=== PATIENT | male | born 1970 | race Caucasian/White ===

== ENCOUNTER 2017-01-24 08:35 | Outpatient (RCR) | payer MEDICARE, MEDICAID ==
[~2017-01-24 08:35] MED LIST: /NEPHROTA PO; ACET650S3 PO; ALBU17IN INH; ALLO300T2 PO; AMBI10TA PO; AMBIEN PO; AMLO10TA2 PO; AMLO5TAB2 PO; AUGM875T27 PO; BACT400T PO; BACT800T5 PO; CALC667C2 PO; CALC668T PO; CARD8TAB2 PO; CARV12.5 PO; CEFD300CAP PO; CINA30TA PO; DEPA500T2 PO; DIVA125C5 PO; EUCECRE3 EXT; FENO54TA2 PO; FOSR1000 PO; FOSRENAL PO; GLIP2.5T6 PO; GLIP5TAB2 PO; LASI40TA PO; LINE60TAB PO; LISI40TAB PO; LISI5TAB PO; LOPR1TAB7 PO; LOSA100T36 PO; LOVA1CAP16 PO; LOVA1CAP17 PO; METO100T PO; MINO2.5T PO; MINO25TA PO; NEPHTAB PO; OMEP40CA2 PO; PHOS667C5 PO; PRAV80TA PO; PRAV80TA2 PO; SENS90TA PO; TYLE325T5 PO; ULOR80TA PO; VELP5CHW PO; VITA200028 PO; ZYLO300T4 PO; [UNRECOGNIZED DRUG - CODE] TOP; nephrovite PO
== END 2017-02-17 ==
LOC: M PT 08:35
PROVIDERS: ATTEND Surgery
DX: Z51.89 Encounter for other specified aftercare (principal); I89.0 Lymphedema, not elsewhere classified
CPT/HCPCS: 97161; G8978; G8979

== ENCOUNTER 2017-02-19 12:59 | Outpatient (RCR) | payer MEDICARE, MEDICAID | END 2017-02-26 13:44 | disposition home or self-care (01) | LOC: M PT 12:59 | PROVIDERS: ATTEND Surgery | DX: Z51.89 Encounter for other specified aftercare (principal); I89.0 Lymphedema, not elsewhere classified | CPT/HCPCS: 97162; G8978; G8979; G8980 ==

== ENCOUNTER 2017-09-17 12:55 | Outpatient (RCR) | payer MEDICARE, MEDICAID ==
[~2017-09-17 12:55] MED LIST changes: -AUGM875T27 PO; +AUGM875T28 PO; -MINO25TA PO
== END 2017-09-19 ==
LOC: M PT 12:55
PROVIDERS: ATTEND Surgery
DX: Z51.89 Encounter for other specified aftercare (principal); I89.0 Lymphedema, not elsewhere classified
CPT/HCPCS: 97163; G8978; G8979

== ENCOUNTER 2017-10-03 13:35 | Outpatient (RCR) | payer MEDICARE, MEDICAID | END 2017-10-20 | LOC: M PT 13:35 | DX: Z51.89 Encounter for other specified aftercare (principal); I89.0 Lymphedema, not elsewhere classified | CPT/HCPCS: 97140 ==

== ENCOUNTER 2017-10-29 11:48 | Outpatient (RCR) | payer MEDICARE, MEDICAID | END 2017-11-20 | LOC: M PT 11-07 11:52 | DX: Z51.89 Encounter for other specified aftercare (principal); I89.0 Lymphedema, not elsewhere classified | CPT/HCPCS: 97140 ==

== ENCOUNTER 2018-11-17 06:30 | Emergency (ER) | payer MEDICARE, MEDICAID ==
[~2018-11-17] VITALS: Ht 177.8 cm; Wt 136.4 kg
[~2018-11-17 06:30] MED LIST changes: -AMLO10TA2 PO; +AMLO10TA5 PO; +AMLO5TAB6 PO; +LASI40TA9 PO; -LOSA100T36 PO; +LOSA100T50 PO; -ZYLO300T4 PO; +ZYLO300T6 PO
[2018-11-17] MEDS ORDERED: TORS100T PO (06:55)
[2018-11-17] MEDS ORDERED: VELT1POW PO (06:55)
[2018-11-17] MEDS ORDERED: TOPR100T13 PO (06:55)
[2018-11-17] MEDS ORDERED: LIDOCAINE 1% MDV 20ML VIAL SC ONE (07:30)
[2018-11-17] MEDS ORDERED: ADACEL/BOOSTRIX VACCINE (DIPHTH/PERTUSS/ACELL/TETANUS)0.5ML SYR (90715) IM ONE (08:00)
[2018-11-17 08:16] VITALS: BP 184/102
== END 2018-11-17 08:32 | disposition home or self-care (01) ==
LOC: EDBD 06:30 → M ED 06:30
DX: S81.812A Laceration without foreign body, left lower leg, initial encounter (principal); W18.40XA Slipping, tripping and stumbling without falling, unspecified, initial encounter; Y92.89 Other specified places as the place of occurrence of the external cause; Y93.89 Activity, other specified; Y99.9 Unspecified external cause status; N18.6 End stage renal disease; Z79.899 Other long term (current) drug therapy; Z88.1 Allergy status to other antibiotic agents

== ENCOUNTER → 2019-03-05 | Outpatient (CLI) | payer MEDICARE, MEDICAID ==
[~2019-03-05] MED LIST changes: -/NEPHROTA PO; +BUPIVACAINE HCL 0.5% 10 ML VIAL As Ordered ONE; +CEFD300C41 PO; -CEFD300CAP PO; -CINA30TA PO; +CINA30TA4 PO; +ISOVUE-300 61% 100ML VIAL (Q9967) As Ordered ONE; +LIDOCAINE 2% MDV 20 ML VIAL As Ordered ONE; +LINE1TAB PO; -LINE60TAB PO; +LISI40TA52 PO; -LISI40TAB PO; +MIDAZOLAM INJ 2 MG/2 ML VIAL (J2250) As Ordered ONE; +NEPH1TAB11 PO; +NEPH1TAB8 PO; -NEPHTAB PO; +TOPR100T PO; +TORS100T PO; +VELT1POW PO; +fentaNYL 100 MCG/2 ML INJECTION (J3010) As Ordered ONE
--- NOTE | 2019-03-27 10:10 | REPIR ---
DATE OF PROCEDURE: 03/05/2019 ATTENDING SURGEON: Dr. Jennifer Padilla ASSISTANTS: Zulema Vicente and Maryellen Murdock PREOPERATIVE DIAGNOSES: End-stage renal disease. Dysfunctional left radiocephalic arteriovenous fistula. POSTOPERATIVE DIAGNOSES: End-stage renal disease. Dysfunctional left radiocephalic arteriovenous fistula. PROCEDURE: Left radiocephalic arteriovenous fistulogram. Retrograde left radial artery angiogram. Two cannulations of the arteriovenous fistula. Selective left radial artery catheter placement with angiogram runoff. Left cephalic vein angioplasty with 10 x 8 balloon. Left cephalic vein and radial artery angioplasty with a 5 x 100 balloon. Left cephalic vein angioplasty with 8 x 40 balloon. INDICATION: The patient is a 48-year-old male with an end stage renal disease and a dysfunctional left radiocephalic arteriovenous fistula. The patient will undergo a fistulogram. ANESTHESIA: Local with sedation with 2 mg of Versed, 100 mcg of fentanyl and 6 mL of local. FLUORO TIME: 2.7 minutes. CONTRAST: 5 mL. SEDATION TIME: Was 9:22 a.m. to 9:57 a.m. for a total 35 minutes. COMPLICATIONS: None. DRAINS: None. SPECIMENS: None. IMPLANTS: None. PROCEDURE: The patient was taken to the angiography suite, placed supine on the angiography room table and then prepped and draped in a standard surgical fashion. The fistula was cannulated and a fistulogram performed showing stenosis in the cephalic vein in the midforearm. This was angioplastied with 10 x 8 balloon. A retrograde radial artery angiogram was performed showing stenosis at the arteriovenous anastomosis and this was angioplasty with a 5 x 100 balloon at the anastomosis and a 8 x 40 balloon in the translocated portion of the cephalic vein at the wrist. Completion angiography showed resolution of the stenosis with excellent flow through the fistula. The sheaths were removed and #2-0 Prolene sutures were placed at the puncture site for hemostasis. Dressings were then applied. The patient tolerated procedure well. All instrument, sponge and needle counts were correct at the end of the case. There were no complications. Dr. Padilla was present for and directed the entire case. The patient was transferred to the holding area and subsequently discharged in stable condition.
== END | disposition home or self-care (01) ==
LOC: M IRPRO 08:39
PROVIDERS: ATTEND Surgery Vascular Surgery
DX: T82.858A Stenosis of other vascular prosthetic devices, implants and grafts, initial encounter (principal); N18.6 End stage renal disease; Z99.2 Dependence on renal dialysis
CPT/HCPCS: 36902; C1725; C1769; C1887; C1894; J2250; J3010; Q9967

== ENCOUNTER → 2019-08-27 | Outpatient (CLI) | payer MEDICARE, MEDICAID ==
[~2019-08-27] MED LIST changes: -BUPIVACAINE HCL 0.5% 10 ML VIAL As Ordered ONE; -ISOVUE-300 61% 100ML VIAL (Q9967) As Ordered ONE; -LIDOCAINE 2% MDV 20 ML VIAL As Ordered ONE; -MIDAZOLAM INJ 2 MG/2 ML VIAL (J2250) As Ordered ONE; +OMEP40CA97 PO; -fentaNYL 100 MCG/2 ML INJECTION (J3010) As Ordered ONE
--- NOTE | 2019-08-27 13:41 | REP ---
Bilateral lower extremity arterial Doppler ultrasound: History: Nonhealing ulcer. Findings: Ankle brachial indices could not be accomplished due to noncompressible vessels and the left arm arteriovenous fistula. Mild to moderate diffuse plaquing is visible in the lower extremity arteries. Exam is technically limited substantially due to patient body habitus and lower extremity edema. The proximal segments of the anterior and posterior tibial arteries could not be seen on either side. Predominately monophasic waveforms are noted in the arteries throughout the lower extremities. There is evidence of a mild distal SFA stenosis on the left. Right lower extremity arterial Doppler velocity chart: Right CF A 118 cm/S Profunda 78 Proximal SFA 126 Mid SFA 131 Distal SFA 146 Popliteal 122 Proximal AT A not seen Tibioperoneal trunk 88 Proximal AVAYA ENGINEER not seen Distal AVAYA ENGINEER 46 Distal AT A 85 Left lower extremity arterial Doppler velocity chart: Left CF A 93 cm/S Profunda 68 Proximal SFA 131 Mid SFA 106 Distal SFA 194 Popliteal 89 Proximal AT A not seen Tibioperoneal trunk 96 Proximal AVAYA ENGINEER not seen Distal AVAYA ENGINEER 115 Distal AT A 68 Electronically Signed by Barrera Mason MD 08/27/2019 01:32 P
== END ==
LOC: M RAD 09:31
PROVIDERS: ATTEND Physician Assistant
DX: S81.802A Unspecified open wound, left lower leg, initial encounter (principal); Q82.0 Hereditary lymphedema; L97.822 Non-pressure chronic ulcer of other part of left lower leg with fat layer exposed; I87.313 Chronic venous hypertension (idiopathic) with ulcer of bilateral lower extremity; X58.XXXA Exposure to other specified factors, initial encounter; Y92.9 Unspecified place or not applicable

== ENCOUNTER → 2019-09-01 | Outpatient (CLI) | payer MEDICARE, MEDICAID ==
[~2019-09-01] MED LIST changes: +ISOVUE-300 61% 50ML VIAL (Q9967) As Ordered ONE; +LIDOCAINE 1% MDV 20ML VIAL As Ordered ONE; +MIDAZOLAM INJ 2 MG/2 ML VIAL (J2250) As Ordered ONE; +fentaNYL 100 MCG/2 ML INJECTION (J3010) As Ordered ONE
--- NOTE | 2019-09-01 12:52 | ROOPDOC ---
[facility] Report Of Operation Report of Operation DATE OF PROCEDURE: 09/01/19 PREPROCEDURE DIAGNOSES: ESRD with poor flows on dialysis with left Trish fistula. POSTPROCEDURE DIAGNOSES: Same. PROCEDURE: 1. Ultrasound-guided access left Trish fistula 2. Left upper extremity fistulogram and central venogram SURGEON: Elmira Murillo MD ANESTHESIA: Local 3 mL lidocaine. INDICATION FOR PROCEDURE: Mr. Paulson is a 48-year-old gentleman with end-stage renal disease currently dialyzing with left upper extremity Trish fistula. He has had some issues with cannulation as well as poor flows. We discussed the risks benefits and alternatives to a fistulogram potential intervention and he was agreeable to proceed. Informed consent was obtained. INTERPRETATION: 1. On initial ultrasound exam of the left forearm, the AV anastomosis is widely patent and there are large aneurysmal segments throughout the forearm bridged by dilated sections of cephalic vein. There are no areas of focal stenosis noted on ultrasound exam. The cephalic vein is very dilated in the upper arm, I estimate approximately 9-10 mm diameter on ultrasound. 2. Fistulogram shows widely patent inflow at the fistula but the flow does pool and slow in the aneurysmal segments, and then there is widely patent inflow into the cephalic and basilic veins in the upper arm, and widely patent inflow through to the central system. No areas of stenosis are noted. REPORT OF OPERATION: The patient was brought into graphic suite in stable condition. He has trouble breathing when he lays flat, so we placed a wedge and 5 pillows behind his back to keep him in a semi-seated position for the procedure for his comfort. This was acceptable to the patient and he was able to breathe easy during the procedure. His left upper extremity was prepped and draped in a sterile fashion. A timeout was performed. An ultrasound was used to examine the forearm prior to cannulation. Please see above for interpretation. We then accessed the cephalic vein near the AV anastomosis and a wire was passed to this access and a micro-sheath was placed. Through this micro-sheath, we advanced a Glidewire into the central system and removed the micro-sheath and a 6 [place] sheath was placed and flushed with saline. We then performed a fistulogram and central venogram and no areas of stenosis were noted, thus no intervention was performed. A suture was placed at the access site in the sheath was removed and pressure was held for 5 minutes for good hemostasis and sterile dressings were applied. The patient tolerated the procedure well. He did not require any sedation. He was taken to recovery in stable condition. ESTIMATED BLOOD LOSS: Approximately 2 mL. COMPLICATIONS: None. PLAN: Our plan is to discuss with the dialysis unit to options: the first would be continuing to use the AV fistula as is if the flows are adequate, the second would be proximalizing the fistula to the left brachial artery making a brachiocephalic AV fistula. The vein is already dilated in the left upper arm, and there is widely patent and outflow through to the central system. Also of note the left basilic vein is extremely large and dilated in the left upper extremity as well and would be suitable for her fistula down the road. If we were to proximal ice the fistula, do not think it would take long for it to be ready for use but we would have to place a PermCath in the interim. The patient is agreeable to either plan and I attempted to call the dialysis unit but was not able to reach anyone today, we will continue to try. It is okay to use the fistula for dialysis at this time. ELMIRA MURILLO MD Sep 01, 2019 12:52
[2019-09-01 12:55] VITALS: BP 142/88
== END ==
LOC: M IRPRO 10:07
PROVIDERS: ATTEND Surgery Vascular Surgery
DX: N18.6 End stage renal disease (principal)
CPT/HCPCS: 36901; C1769; C1894; J2250; J3010; Q9967

== ENCOUNTER → 2019-09-29 | Outpatient (POV) | payer MEDICARE, MEDICAID ==
[~2019-09-29] VITALS: Ht 177.8 cm; Wt 140.9 kg
[~2019-09-29] MED LIST changes: -ISOVUE-300 61% 50ML VIAL (Q9967) As Ordered ONE; -LIDOCAINE 1% MDV 20ML VIAL As Ordered ONE; -MIDAZOLAM INJ 2 MG/2 ML VIAL (J2250) As Ordered ONE; -fentaNYL 100 MCG/2 ML INJECTION (J3010) As Ordered ONE
[2019-09-29 13:00] VITALS: BP 110/62
--- NOTE | 2019-09-30 09:30 | IRCOV ---
[facility] IR Consult Office Visit IR Consult Office Visit DATE: Sep 29, 2019 REASON FOR CONSULTATION/CHIEF COMPLAINT: Lower extremity nonhealing wounds. HISTORY OF PRESENT ILLNESS: 48-year-old male nonsmoker with chronic bilateral lymphedema which started in 2011 associated with kidney failure. Describes pain in bilateral legs worse with walking, onset at less than 1 yard. Pain goes away with rest. Describes pain in the legs at night and has to get up and hang his legs out of the bed to get relief. Nonhealing ulcers on bilateral legs currently under care of wound care. Denies chest pain, PND, prior CT or stroke. No prior surgery to the legs or groin. ALLERGIES: Please see below. HOME MEDICATIONS: Please see below. PAST MEDICAL HISTORY: Hypertension Diabetes Chronic kidney disease on dialysis Elevated cholesterol Iron deficiency anemia COPD Obesity Gout PAST SURGICAL HISTORY: Dialysis fistula FAMILY HISTORY: Noncontributory. SOCIAL HISTORY: Nonsmoker no alcohol or drugs. REVIEW OF SYSTEMS: Otherwise negative PHYSICAL EXAMINATION: VITAL SIGNS: Please see below. GENERAL APPEARANCE: Appears well. Short of breath mobilizing from chair to table. HEENT: No scleral icterus. RESPIRATORY: Symmetric breath sounds. CARDIOVASCULAR: Tachycardic. ABDOMEN: Protuberant. EXTREMITIES: Right lower extremity. Lymphedema. Cobblestoning. Compression dressing on. Superficial nonhealing ulcer upper right anterior calderón Left lower extremity: Lymphedema. Cobblestoning. Compression dressing. NEUROLOGICAL: Alert and oriented. PSYCHIATRIC: Appropriate to circumstance. LABORATORY DATA: None Imaging: I personally reviewed the ultrasound performed of the lower extremities in August 2019. Technically challenging exam due to patient's body habitus and lymphedema. There are monophasic waveforms in the arteries of the legs bilaterally. ABIs cannot be obtained due to lymphedema and noncompressibility. ASSESSMENT/PLAN: 48-year-old male with intermittent claudication and rest pain with limited ultrasound findings presents with nonhealing lower extremity wounds. I agree diagnostic angiogram and/or intervention at the same time is indicated. Left leg first followed by right leg. I discussed the risks and benefits of the procedure with the patient and patient would like to proceed. We will schedule the patient for this procedure. I spent 30 minutes in consultation with the patient. Thank you for this referral. CC Nneka Thomas Allergies Coded Allergies: MS - Vancomycin (Unverified Allergy, Mild, ITCHING, 1/6/16) Home Medications Scheduled Amlodipine Besylate (Amlodipine Besylate), 5 MG PO DAILY, (Reported) Calcium Acetate (Phoslo), 4 TAB PO TID, (Reported) Doxazosin Mesylate (Cardura), 8 MG PO QHS, (Reported) Ergocalciferol (Vitamin D2) (Vitamin D2), 50,000 UNIT PO QMONTH, (Reported) Eucerin (Eucerin), 1 DOSE EXT BID Febuxostat (Uloric), 80 MG PO DAILY, (Reported) Linezolid (Linezolid), 600 MG PO BID Lisinopril (Lisinopril), 40 MG PO BID, (Reported) [place]-3 Acid Ethyl Esters (Lovaza), 2,000 MG PO BID, (Reported) Omeprazole (Omeprazole), 40 MG PO DAILY, (Reported) Patiromer Calcium Sorbitex (Veltassa), 8.4 GM PO non dialysis days, (Reported) Pravastatin Sodium (Pravachol), 80 MG PO DAILY, (Reported) Sucroferric Oxyhydroxide (Velphoro), 1,000 MG PO TID, (Reported) Vit B Comp No.3/Folic/C/Biotin (Nephro-[place] Rx Tablet), 1 TAB PO DAILY, (Reported) Scheduled PRN Acetaminophen (Tylenol), 650 MG PO Q6H PRN for PAIN, (Reported) Albuterol Sulfate (Ventolin Hfa), 2 PUFF INH Q4H PRN for SHORTNESS OF BREATH, (Reported) VS, I&O, 24H, Fishbone Vital Signs/I&O Vital Signs Date Time Temp Pulse Resp B/P (MAP) Pulse Ox O2 Delivery O2 Flow Rate FiO2 09/29/19 13:00 97.7 100 18 110/62 (78) 100 Room Air JORGE GARCIA MD Sep 30, 2019 09:30
== END ==
LOC: M IRPOV 12:56
PROVIDERS: ATTEND Radiology Diagnostic Radiology
DX: I89.0 Lymphedema, not elsewhere classified (principal); I10 Essential (primary) hypertension; N18.6 End stage renal disease; L97.929 Non-pressure chronic ulcer of unspecified part of left lower leg with unspecified severity; L97.919 Non-pressure chronic ulcer of unspecified part of right lower leg with unspecified severity; D50.9 Iron deficiency anemia, unspecified; J44.9 Chronic obstructive pulmonary disease, unspecified; E66.9 Obesity, unspecified; M10.9 Gout, unspecified; M79.604 Pain in right leg; M79.605 Pain in left leg

== ENCOUNTER → 2019-10-29 | Outpatient (CLI) | payer MEDICARE, MEDICAID ==
[~2019-10-29] MED LIST changes: +HEPARIN 1,000 UNITS/ML 10ML VIAL (FOR RADIOLOGY& DIALYSIS ONLY) As Ordered ONE; +ISOVUE-300 61% 50ML VIAL (Q9967) As Ordered ONE; +LIDOCAINE 1% MDV 20ML VIAL As Ordered ONE; +MIDAZOLAM INJ 2 MG/2 ML VIAL (J2250) As Ordered ONE; +diphenhydrAMINE INJ 50MG/ML VIAL (J1200) As Ordered ONE; +fentaNYL 100 MCG/2 ML INJECTION (J3010) As Ordered ONE
--- NOTE | 2019-10-29 13:47 | IRHP ---
[facility] IR Pre-Procedure H & P General Date of Service: Oct 29, 2019 Procedure: Same Day Surgery Interval History and Physical I have seen the patient and reviewed last H & P performed within 30 days. There is no significant interval change. History of Present Illness Chief Complaint The patient is a 48-year-old male admitted with a reason for visit of Pad, Rest Pain. PRE-PROCEDURE DIAGNOSIS: PAD HEART: normal rate. LUNGS: normal breathing at rest. ASA Classification ASA Classification: III-Severe systemic dis. Mallampati Score: II NPO: Yes Problems with prior sedation: No Obstructive Sleep Apnea: Yes Plan moderate sedation Allergies Coded Allergies: MS - Vancomycin (Unverified Allergy, Mild, ITCHING, 10/26/15) Home Medications Scheduled Amlodipine Besylate (Amlodipine Besylate), 5 MG PO DAILY, (Reported) Calcium Acetate (Phoslo), 4 TAB PO TID, (Reported) Doxazosin Mesylate (Cardura), 8 MG PO QHS, (Reported) Ergocalciferol (Vitamin D2) (Vitamin D2), 50,000 UNIT PO QMONTH, (Reported) Eucerin (Eucerin), 1 DOSE EXT BID Febuxostat (Uloric), 80 MG PO DAILY, (Reported) [place]-3 Acid Ethyl Esters (Lovaza), 2,000 MG PO BID, (Reported) Omeprazole (Omeprazole), 40 MG PO DAILY, (Reported) Patiromer Calcium Sorbitex (Veltassa), 8.4 GM PO non dialysis days, (Reported) Pravastatin Sodium (Pravachol), 80 MG PO DAILY, (Reported) Sucroferric Oxyhydroxide (Velphoro), 1,000 MG PO TID, (Reported) Vit B Comp No.3/Folic/C/Biotin (Nephro-Kw[place]ena Rx Tablet), 1 TAB PO DAILY, (Rep orted) Scheduled PRN Acetaminophen (Tylenol), 650 MG PO Q6H PRN for PAIN, (Reported) Albuterol Sulfate (Ventolin Hfa), 2 PUFF INH Q4H PRN for SHORTNESS OF BREATH, (Reported) Discontinued Medications Linezolid (Linezolid), 600 MG PO BID Discontinued Reason: Pt states not taking Lisinopril (Lisinopril), 40 MG PO BID, (Reported) Discontinued Reason: Pt states not taking VS, I&O, 24H, Fishbone Vital Signs/I&O Vital Signs Date Time Temp Pulse Resp B/P (MAP) Pulse Ox O2 Delivery O2 Flow Rate FiO2 10/29/19 13:35 87 16 93 Nasal Cannula 4 10/29/19 12:23 97.3 JORGE GARCIA MD Oct 29, 2019 13:47
--- NOTE | 2019-10-29 15:08 | POST-OPPD ---
Postoperative Procedure Note Date Of Procedure: Oct 29, 2019 Time Of Procedure: 15:06 PREOPERATIVE DIAGNOSIS: non healing ulcer POSTOPERATIVE DIAGNOSIS: same FINDINGS: patent left iliac, PIE CHEF, SFA, profunda, popliteal, and three vessel run off to the foot. PROCEDURE: left leg angiogram. SURGEON: mike ANESTHESIA: mod sed ESTIMATED BLOOD LOSS: < 5 ml COMPLICATIONS: none POSTOPERATIVE CONDITION: stable JORGE GARCIA MD Oct 29, 2019 15:08
[2019-10-29 17:39] VITALS: BP 164/94
--- NOTE | 2019-10-30 17:01 | REP ---
IR Left leg angiogram. IR below-knee runoff. IR moderate sedation. Clinical Information: Left leg pain, abnormal ultrasound and nonhealing wounds. Physician: Dr Andrade.Procedure: The patient was advised of the benefits, risks, and alternatives of the procedure and informed consent was obtained.A time out was performed with verification of the patient's name, MRN, site of procedure, and type of procedure to be performed. The patient was positioned in the supine position on the angiographic table. The site was prepped and draped in the usual sterile fashion.Moderate sedation was performed by the physician including the presence of an independent trained observer who assisted in monitoring the patient's level of consciousness and physiological status. Following the administration of Fentanyl and Versed, the physician spent 60 minutes of continuous [id number] time with the patient. A thermodynamic physicist radiograph reveals no gross abnormality. The right femoral artery was accessed with a micropuncture kit. A [employer] wire was advanced into the aorta. The micropuncture sheath was exchanged over the wire for a a 6-[place]izen [place] vascular sheath. A 4-[place] flush catheter was advanced over the wire and used to catheterize the abdominal aorta. A pelvic arteriogram was performed. This demonstrates patent left common iliac, external iliac, internal iliac and common femoral arteries. A Glidewire was advanced through the flush catheter and under fluoroscopy guidance was used to gain up and over access into the left common iliac artery. The flush catheter was exchanged over the wire for a glide cath. The glide cath in conjunction with a Glidewire was used to catheterize the left common femoral artery. A left leg angiogram was performed from this location. This demonstrates patent left superficial femoral and profunda femoris. An angiogram further down the leg was performed and this demonstrates patent mid and distal superficial femoral artery and patent popliteal artery. A below-knee runoff arteriogram was performed and this demonstrates three vessel runoff to the left foot. The catheter was removed. A 6-[place]izen [place] Mynx device was used to close the groin arteriotomy and the sheath was removed. Hemostasis achieved. A sterile dressing was applied to the site. Patient tolerated the procedure well and was transferred to PRU in stable condition. Complications: None. Estimated blood loss: Less than 5 ml. Impression: 1. Left leg angiogram demonstrates patent inflow and outflow. No significant stenosis. 2. Below-knee runoff demonstrates three vessel runoff to the left foot. No further arterial intervention warranted at this time. Thank you for this referral. Electronically Signed by Beth Andrade MD 10/30/2019 05:00 P
== END ==
LOC: M IRPRO 11:22
PROVIDERS: ATTEND Radiology Diagnostic Radiology
DX: M79.605 Pain in left leg (principal); R93.6 Abnormal findings on diagnostic imaging of limbs; L97.909 Non-pressure chronic ulcer of unspecified part of unspecified lower leg with unspecified severity
CPT/HCPCS: 36246; 99152; 99153; C1760; C1769; C1887; C1894; G0269; J1200; J2250; J3010; Q9967

== ENCOUNTER 2019-11-25 09:54 | Inpatient (IN) | payer MEDICARE, MEDICAID ==
[~2019-11-25] VITALS: Ht 177.8 cm; Wt 130.5 kg
[~2019-11-25 09:54] MED LIST changes: -HEPARIN 1,000 UNITS/ML 10ML VIAL (FOR RADIOLOGY& DIALYSIS ONLY) As Ordered ONE; -ISOVUE-300 61% 50ML VIAL (Q9967) As Ordered ONE; -LIDOCAINE 1% MDV 20ML VIAL As Ordered ONE; -MIDAZOLAM INJ 2 MG/2 ML VIAL (J2250) As Ordered ONE; -diphenhydrAMINE INJ 50MG/ML VIAL (J1200) As Ordered ONE; -fentaNYL 100 MCG/2 ML INJECTION (J3010) As Ordered ONE
[2019-11-25] MEDS ORDERED: HYDR-3363 PO (10:12)
[2019-11-25] MEDS ORDERED: LIDO2.5C15 TOP (10:12)
[2019-11-25 11:07] LABS: BASO % 0.7 % (0.0-1.0); EOS # 0.1 10^3/uL (0.0-0.5); EOS % 3.6 % (0.0-3.0); HEMATOCRIT 34.4 % (42.0-52.0); HEMOGLOBIN 10.4 g/dl (13.5-17.5); LYMPH # 0.4 10^3/uL (1.5-5.0); LYMPH % 15.3 % (24.0-44.0); MEAN CORPUSCULAR HGB CONC 30.2 g/dl (32.0-36.5); MEAN CORPUSCULAR VOLUME 105.8 fl (80.0-96.0); MONO # 0.4 10^3/uL (0.0-0.8); MONO % 15.3 % (0.0-5.0); NEUTROPHILS # 1.8 10^3/uL (1.5-8.5); NEUTROPHILS % 64.7 % (36.0-66.0); PLATELET COUNT, AUTOMATED 109 10^3/uL (150-450); RED BLOOD COUNT 3.25 10^6/uL (4.30-6.10); WHITE BLOOD COUNT 2.8 10^3/uL (4.0-10.0)
[2019-11-25 11:28] LABS: ALBUMIN 3.5 GM/DL (3.2-5.2); BILIRUBIN,DIRECT 0.6 MG/DL (0.0-0.2); BILIRUBIN,TOTAL 1.1 MG/DL (0.2-1.0); CALCIUM LEVEL 8.4 MG/DL (8.5-10.1); CREATININE FOR GFR 5.32 MG/DL (0.70-1.30); GLOMERULAR FILTRATION RATE 12.2 (>56); POTASSIUM SERUM 4.4 MEQ/L (3.5-5.1); TOTAL PROTEIN 8.1 GM/DL (6.4-8.2)
[2019-11-25] MEDS: GASTROGRAFIN SOLUTION 30ML PO SCH ×2 (14:25→14:47)
[2019-11-25] MEDS ORDERED: LEVA1TAB2 PO (15:17)
[2019-11-25] MEDS ORDERED: EUCECRE8 TOP (15:17)
[2019-11-25] MEDS ORDERED: TORS100T PO (15:17)
[2019-11-25] MEDS ORDERED: LINE1TAB6 PO (15:17)
[2019-11-25] MEDS ORDERED: AMBI10TA PO (15:17)
[2019-11-25] MEDS ORDERED: METO1TAB33 PO (15:17)
[2019-11-25] MEDS ORDERED: PRAV80TA2 PO (15:17)
[2019-11-25] MEDS ORDERED: CARV6.25 PO (15:17)
[2019-11-25] MEDS ORDERED: LISI40TA PO (15:17)
[2019-11-25] MEDS ORDERED: VENTAER INH (15:17)
[2019-11-25] MEDS ORDERED: CALC667T2 PO (15:17)
[2019-11-25] MEDS ORDERED: ALLO10TA PO (15:17)
[2019-11-25] MEDS ORDERED: PATIENT COMMENT (15:19)
[2019-11-25] MEDS ORDERED: DEXTROSE 50% 50 ML SYRINGE IV STA (16:02)
--- NOTE | 2019-11-25 17:12 | REP ---
CT abdomen and pelvis with oral but without IV contrast: History: Diverticular bleed. Renal failure on dialysis. No comparison CT studies. CT findings: Digital preliminary culinary director radiograph shows no evidence of bowel obstruction. There is evidence of splenomegaly and hepatomegaly and moderate to large amount of ascites. Axial CT images show an area of spiral atelectasis in the left lower lobe of the lung. There is pleural thickening and a small quantity of fluid at the left base. These findings are new when compared with comparison chest CT study November 21, 2012. There is also some atelectasis or fibrosis in the lingula. Granulomatous calcifications are noted in the bases bilaterally. Axial CT images confirm the presence of a moderate to large amount of diffuse abdominal ascites. The liver is at the upper range of normal in size with a craniocaudal span in the midclavicular line of 16.5 cm. The spleen is moderately enlarged measuring up to 19.6 cm in craniocaudal oblique dimension. No focal hepatic or splenic lesion is seen. Gallbladder is unremarkable. No mass or cyst is seen in the pancreas. Vascular calcification is noted. The [place] kidneys are markedly atrophic. There are scattered retroperitoneal and bilateral iliac lymph nodes and inguinal lymph nodes which are felt to be normal in size. There is some edema in the omental fat but no mesenteric caking or peritoneal mass lesion is appreciated. Small and large bowel loops are unremarkable in the abdomen and pelvis. No bony abnormality is seen. The appendix is not confidently identified. Impression: Moderate to large amount of diffuse abdominal ascites. Hepatosplenomegaly. Chronic atelectasis left lower lobe and lingula with pleural thickening and minimal pleural fluid left base. [place] kidneys are markedly atrophic. Electronically Signed by Barrera Mason MD 11/25/2019 07:31 P
[2019-11-25] MEDS ORDERED: zolPIDEM TARTRATE 5 MG TAB PO ONE (17:30)
[2019-11-25] MEDS ORDERED: EMLA CREAM 5GM (LIDOCAINE/PRILOCAINE) TOP PRN (17:30)
[2019-11-25] MEDS ORDERED: hydrOXYzine 25 MG TAB PO PRN (17:30)
[2019-11-25] MEDS ORDERED: GLUCOSE 4 GM CHEW TABLET PO PRN (18:15)
[2019-11-25] MEDS ORDERED: GLUCAGON FOR INJ 1 MG VIAL (J1610) SC PRN (18:15)
[2019-11-25] MEDS ORDERED: DEXTROSE 50% 50 ML SYRINGE IV PRN (18:15)
--- NOTE | 2019-11-25 18:45 | HPEPDOC ---
General Date of Admission 11/25/2019 Date of Service: Nov 25, 2019 Attending Physician: CARMELLA GAGE MD Chief Complaint The patient is a 48-year-old male admitted with a reason for visit of Abd Pain. Source: Patient Exam Limitations: No limitations Timing/Duration: 24 hours (hematochezia), Day(s) (weight gain) Severity: Severe Associated Symptoms: Other (weight gain, bloody bowel movements, RUQ abdominal pain) History of Present Illness 48 yo man with ESRD on HD (MWF), diet controlled DM, AOCI and Fe deficiency anemia, GERD, HTN, HFrEF and pulmonary hypertension who presented from HD per recommendation of his accreditation coordinator for admission for acute hematochezia over the last 24h hours with associated RUQ pain as well as massive weight gain with fra nk volume overload over a few days from his dry weight. He reports that at 3am the night before he had blood diarrhea of which he had 4 more episodes without painful defecation, fever, chills, weight loss. He endorses RUQ pain that wakes him from sleep and is not associated with PO and is episodic, with otherwise no N/V. In the ED, he was hemodynamically stable, afebrile and saturating well on room air. He initially refused to be admitted despite acknowledging the ongoing issues but had wanted to have it all solved in the ED so he can go home. He agreed to have his work up that showed his baseline leukopenia at 2.8, baseline anemia at 10.4/34.4, platelets 109, Na 139, K 4.4, Cr 5.32, lipase 229, LFTs notable for elevated alk phos of [address] A/P showed moderate to large ascites with hepatospenomegaly out evidence of intestinal obstruction of enlarged lymph nodes. He was admitted to medicine for LGIB monotoring and volume optimization with nephrology onboard. Of note, patient was on renally dosed levaquin/linezolid and will await to confirm the targeted infection. Home Medications Scheduled Allopurinol (Allopurinol) 100 Mg Tablet, 100 MG PO DAILY, (Reported) Amlodipine Besylate (Amlodipine Besylate) 5 Mg Tab, 5 MG PO DAILY, (Reported) Calcium Acetate (Calcium Acetate) 667 Mg Tablet, 2,001 MG PO WM, (Reported) Carvedilol (Carvedilol) 6.25 Mg Tablet, 6.25 MG PO BID, (Reported) Doxazosin Mesylate (Cardura) 8 Mg Tab, 8 MG PO QHS, (Reported) Ergocalciferol (Vitamin D2) (Vitamin D2) 2,000 Unit Tab, 50,000 UNIT PO QWEEK, (Reported) Febuxostat (Uloric) 80 Mg Tab, 80 MG PO DAILY, (Reported) Levofloxacin (Levaquin) 500 Mg Tablet, 500 MG PO Q2D, (Reported) Lidocaine/Prilocaine (Lidocaine-Prilocaine Cream) 2.5%/2.5% Cream..g., 1 DOSE TOP ASDIRECTED, (Reported) APPLY TO PORT 1 TO 2 HOURS PRIOR TO DIALYSIS Linezolid (Linezolid) 600 Mg Tablet, 600 MG PO BID, (Reported) Lisinopril (Lisinopril) 40 Mg Tablet, 40 MG PO BID, (Reported) Metoprolol Succinate (Metoprolol Succinate) 100 Mg Tab.er.24h, 100 MG PO BID, (Reported) [place]-3 Acid Ethyl Esters (Lovaza) 1 Cap Cap, 2,000 MG PO BID, (Reported) Omeprazole (Omeprazole) 40 Mg Cap, 40 MG PO DAILY, (Reported) Patiromer Calcium Sorbitex (Veltassa) 8.4 Gm Pow, 8.4 GM PO 3XW, (Reported) NON-DIALYSIS DAY. , , SAT Pravastatin Sodium (Pravastatin Sodium) 80 Mg Tablet, 80 MG PO DAILY, (Reported) Sucroferric Oxyhydroxide (Velphoro) 500 Mg Chw, 1,500 MG PO WM, (Reported) Torsemide (Torsemide) 100 Mg Tablet, 100 MG PO DAILY, (Reported) Vit B Comp No.3/Folic/C/Biotin (Nephro-[place] Rx Tablet) 1 Tab Tab, 1 TAB PO DAILY, (Reported) Scheduled PRN Albuterol Sulfate (Ventolin Hfa) 18 Gm Hfa.aer.ad, 2 PUFF INH Q6H PRN for SHORTNESS OF BREATH, (Reported) Hydroxyzine HCl (Hydroxyzine HCl) 25 Mg Tablet, 25 MG PO BID PRN for ITCHING, (Reported) Lanolin Alcohol/Mo/W.pet/[place] (Eucerin Creme) 454 Gm Cream..g., 1 DOSE TOP BID PRN for DRY SKIN, (Reported) Zolpidem Tartrate (Ambien) 10 Mg Tablet, 10 MG PO QHS PRN for SLEEP, (Reported) Miscellaneous Medications [Patient Comment] , (Reported) MEDICATION LIST OBTAINED FROM DIALYSIS CENTER. NO MEDICATIONS FILLED RECENTLY AT PATIENT'S PHARMACY. Allergies Coded Allergies: vancomycin (Verified Adverse Reaction, Mild, ITCHING, 11/25/19) Past Medical History Medical History ESRD on HD (MWF), diet controlled DM, AOCI and Fe deficiency anemia, GERD, HTN, HFrEF and pulmonary hypertension, Gout, bilateral hydrocele, hyperlipidemia, BPH, bipolar disorder, LE lymphedema and chronic LE non-healing ulcers Surgical History LUE fistula graft Family History Significant Family History: No pertinent family hx Social History * Smoker: Denies Alcohol: Denies Drugs: denies Recent Travel/Sick Contacts: Denies: Recent travel, Recent sick contacts Psychosocial History: Bipolar A-FIB/CHADSVASC A-FIB History Current/History of A-Fib/PAF?: No Current PO Anticoag Therapy: No Age/Risk Factor Scoring CHADSVASC: CHADSVASC Response (Comments) Value Age Risk Factor Age < 65 years old 0 Gender Risk Factor Male 0 Hx of CHF Yes 1 Hx of HTN Yes 1 Hx of Stroke/TIA/or VTE No 0 Hx of Diabetes Yes 1 Hx of Vascular Disease Yes 1 Total 4 Treatment Treatment ordered: NONE Reason Anticoagulant not given: Not indicated/[id number] Review of Systems Constitutional: Denies: Chills, Fever, Night Sweats Eyes: Denies: Pain, Vision change ENT: Denies: Head Aches, Ear Pain, Dysphagia Skin: Denies: Rash, Lesions, Breakdown Pulmonary: Denies: Dyspnea, Cough Cardiovascular: Denies: Chest Pain, Palpitations, Orthopnea, Paroxysmal Noc. Dyspnea, Lt Headedness Gastrointestinal: Reports: Abdominal Pain, Diarrhea, Hematochezia; Denies: Nausea, Vomiting, Constipation, Melena Genitourinary: Denies: Dysuria, Frequency, Incontinence, Retention Hematologic: Denies: Bruising, Bleeding Excessively Endocrine: Denies: Polydipsia, Polyphagia, Polyuria, Heat Intolerance, Cold Intolerance, Other Endocrine Sx Musculoskeletal: Denies: Neck Pain, Back Pain, Joint Pain, Muscle Pain, Spasms Neurological: Denies: Weakness, Numbness, Change in speech, Confusion Psych: Reports: Mood Normal; Denies: Depression, Memory Issues Physical Examination General Exam: Positive: Other (morbidly obese) Eye Exam: Positive: PERRLA, Conjunctiva & lids normal, EOMI; Negative: Sclera icteric ENT Exam: Positive: Atraumatic, Mucous membr. moist/pink, Pharynx Normal Neck Exam: Positive: Supple; Negative: thyromegaly Chest Exam: Positive: Clear to auscultation, Normal air movement, Diminished (bases); Negative: Rales, Rhonchi, Wheezing Heart Exam: Positive: Rate Normal, Regular Rhythm, Normal S1, Normal S2, Murmurs (RUSB 2/6); Negative: Rubs Telemetry: Positive: No significant arrhythmia Abdomen Exam: Positive: Normal bowel sounds, Soft, Tenderness (RUQ pain, however with negative Lerma's sign), Hernia (has umbilical hernia); Negative: Hepatospenomegaly Extremity Exam: Positive: Edema (3+ chronic LE lymphedema with banadage wraps on) Skin Exam: Positive: Nl turgor and temperature Neuro Exam: Positive: Normal Speech, Strength at 5/5 X4 ext, Cranial Nerves 3- 12 NL Psych Exam: Positive: Mental status NL, Oriented x 3 Vital Signs Vital Signs Date Time Temp Pulse Resp B/P (MAP) Pulse Ox O2 Delivery O2 Flow Rate FiO2 11/25/19 16:54 97.6 11/25/19 16:45 98 18 96 Room Air 11/25/19 16:19 154/83 (106) Laboratory Data Labs 24H Laboratory Tests 2 11/25/19 10:51: Immature Granulocyte % (Auto) 0.4, Neutrophils (%) (Auto) 64.7, Lymphocytes (%) (Auto) 15.3L, Monocytes (%) (Auto) 15.3H, Eosinophils (%) (Auto) 3.6H, Basophils (%) (Auto) 0.7, Neutrophils # (Auto) 1.8, Lymphocytes # (Auto) 0.4L, Monocytes # (Auto) 0.4, Eosinophils # (Auto) 0.1, Basophils # (Auto) 0.0, Nucleated Red Blood Cells % (auto) 0.0, Anion Gap 8, Glomerular Filtration Rate 12.2L, Calcium Level 8.4L, Total Bilirubin 1.1H, Direct Bilirubin 0.6H, Aspartate Amino Transf (AST/SGOT) 18, Alanine Aminotransferase (ALT/SGPT) 15, Alkaline Phosphatase 239H, Total Protein 8.1, Albumin 3.5, Albumin/Globulin Ratio 0.76L, Lipase 229 11/25/19 15:57: Bedside Glucose (Misc Panel) 62L CBC/BMP Laboratory Tests 11/25/19 10:51 Assessment/Plan 48 yo man with ESRD on HD (MWF), diet controlled DM, AOCI and Fe deficiency anemia, GERD, HTN, HFrEF and pulmonary hypertension who presented from HD per recommendation of his accreditation coordinator for admission for acute hematochezia over the last 24h hours with associated RUQ pain as well as massive weight gain with daina volume overload over a few days from his dry weight who is now being a dmitted for monitoring of his LGIB with at present stable H/H, as well as volume optimization with anasarca and ascites. ESRD on HD, with current anasarca: -consult nephrology to continue volume optimization via HD -continue torsemide 100 QD, phoslo, velphoro LGIB: liekly slow diverticular vs. hemorrhoidal bleed with CT without diverticulitis, obstruction or mass -monitor CBC, check AM labs, as H/H remains stable -will consult GI in the morning Abdominal pain with significant ascites: -TO consider IR paracentesis for relief of girth HTN: -continue home amlodipine, coreg, lisinopril, toprol, doxazosin Gout: -continue allopurinol and uloric -continue PRN atarax and PRN ambien DVT ppx: SCDs and TEDs if possible Diet: clear liquid, if H/H stable on AM labs, will likely advance. Plan / VTE VTE Prophylaxis Ordered?: Yes CARMELLA GAGE MD Nov 25, 2019 18:45
[2019-11-25 19:45] VITALS: BP 138/70
[2019-11-25] MEDS: lisinopriL 40 MG TAB PO SCH (20:21)
[2019-11-25] MEDS: HumaLOG INSULIN (NovoLOG) PER UNIT SC SCH (20:22)
[2019-11-25] MEDS: OMEGA-3 1000MG CAPSULE PO SCH (21:00)
[2019-11-25] MEDS: DOXAZOSIN MESYLATE 4 MG TAB PO SCH (21:00)
[2019-11-25] MEDS: METOPROLOL SUCC (TopROL XL) 100MG *XL* TAB PO SCH (21:20)
[2019-11-25] MEDS: CARVedilol 6.25 MG TAB PO SCH (21:20)
[2019-11-26] VITALS (7 sets, daily range): BP systolic 115–143; BP diastolic 62–72
[2019-11-26] MEDS ORDERED: oxyCODONE 5MG TAB PO ONE (01:15)
[2019-11-26 05:46] LABS: HEMATOCRIT 32.8 % (42.0-52.0); HEMOGLOBIN 9.8 g/dl (13.5-17.5); MEAN CORPUSCULAR HEMOGLOBIN 31.6 pg (27.0-33.0); MEAN CORPUSCULAR HGB CONC 29.9 g/dl (32.0-36.5); MEAN CORPUSCULAR VOLUME 105.8 fl (80.0-96.0); PLATELET COUNT, AUTOMATED 108 10^3/uL (150-450); WHITE BLOOD COUNT 2.7 10^3/uL (4.0-10.0)
[2019-11-26 06:16] LABS: ALBUMIN 3.2 GM/DL (3.2-5.2); BILIRUBIN,TOTAL 0.7 MG/DL (0.2-1.0); CALCIUM LEVEL 7.6 MG/DL (8.5-10.1); CREATININE FOR GFR 6.63 MG/DL (0.70-1.30); GLOMERULAR FILTRATION RATE 9.5 (>56); MAGNESIUM LEVEL 2.2 MG/DL (1.8-2.4); POTASSIUM SERUM 4.7 MEQ/L (3.5-5.1); TOTAL PROTEIN 7.6 GM/DL (6.4-8.2)
[2019-11-26] MEDS: HumaLOG INSULIN (NovoLOG) PER UNIT SC SCH ×4 (07:30→20:01)
[2019-11-26] MEDS: PRAVASTATIN 20 MG TAB PO SCH (08:28)
[2019-11-26] MEDS: allopurinoL 100 MG TAB PO SCH (08:28)
[2019-11-26] MEDS: lisinopriL 40 MG TAB PO SCH ×2 (08:29→21:00)
[2019-11-26] MEDS: OMEPRAZOLE 20 MG CAP PO SCH (08:29)
[2019-11-26] MEDS: amLODIPine 5 MG TAB PO SCH (08:30)
[2019-11-26] MEDS: METOPROLOL SUCC (TopROL XL) 100MG *XL* TAB PO SCH ×2 (08:30→21:00)
[2019-11-26] MEDS: CARVedilol 6.25 MG TAB PO SCH ×2 (08:30→21:00)
[2019-11-26] MEDS: NEPHRO-VIT TAB (NEPHROCAPS) PO SCH (08:31)
[2019-11-26] MEDS: FEBUXOSTAT 40 MG TABLET (ULORIC) PO SCH (08:31)
[2019-11-26] MEDS: SUCROFERRIC OXYHYDROXIDE 500MG CHEW TAB (VELPHORO) PO SCH ×3 (08:31→17:28)
[2019-11-26] MEDS: TORSEMIDE 100 MG TAB PO SCH (08:31)
[2019-11-26] MEDS: CALCIUM ACETATE 667 MG GELCAP PO SCH ×3 (08:31→17:28)
[2019-11-26] MEDS: OMEGA-3 1000MG CAPSULE PO SCH ×2 (08:31→21:00)
[2019-11-26 09:11] LABS: PERCENT SATURATION 35.4 % (19.7-50.0)
[2019-11-26 11:00] LABS: INR 1.3; PROTHROMBIN TIME 15.9 SECONDS (11.8-14.0)
--- NOTE | 2019-11-26 11:48 | CR ---
DATE OF CONSULTATION: 11/26/2019 CONSULTATION FOR: Brittany Jang MD REASON FOR CONSULTATION: To assist in the management of end-stage renal disease and associated complications. HISTORY OF PRESENT ILLNESS: Mr. Paulson is a 48-year-old gentleman with end-stage renal disease, diet-controlled type 2 diabetes, chronic lower extremity edema and leg wounds, history of hypertension and gastroesophageal reflux disease. He also has systolic congestive heart failure and pulmonary hypertension with noncompliance with medical care and fluid restrictions. He was admitted yesterday with abdominal pain, distension and rectal bleeding. He reported rectal bleeding for the last couple of days. He did have his dialysis treatment prior to admission yesterday. PAST MEDICAL AND SURGICAL HISTORY: Significant for: 1. Longstanding diabetes, currently diet-controlled. 2. Hypertension. 3. History of systolic congestive heart failure. 4. Severe pulmonary hypertension. 5. Gout. 6. History of bilateral hydroceles. 7. Hyperlipidemia. 8. History of depression with bipolar disorder. 9. History of lower extremity lymphedema. 10. History of nonhealing chronic ulcers. 11. Secondary hyperparathyroidism. PAST SURGICAL HISTORY: Is significant for leg left upper extremity AV fistula creation. MEDICATIONS: His home medications include: allopurinol 100 mg daily, amlodipine 5 mg daily, calcium acetate 3 tablets three times a day with meals, Carvedilol 6.25 mg twice a day, Cardura 8 mg at bedtime, vitamin D 2000 units daily, levofloxacin 500 mg every 2 days, linezolid 600 mg twice a day, lisinopril 40 mg twice a day, metoprolol succinate 100 mg twice a day, omeprazole 40 mg daily, pravastatin 80 mg daily, torsemide 100 mg daily and multivitamin one tablet daily. ALLERGIES: He has allergy to VANCOMYCIN. PERSONAL AND SOCIAL HISTORY: The patient has been chronically noncompliant with diet and fluid restrictions. He denies any alcohol or drug use. FAMILY HISTORY: Is negative for end-stage renal disease. REVIEW OF SYSTEMS: Ears, nose and throat are unremarkable. Cardiovascular system is significant for chronic systolic congestive heart failure. He denies any chest pain at present. Respiratory system negative for cough or hemoptysis. GI system is significant for abdominal distension and pain. He also had rectal bleeding for the last couple of days. CAT scan of abdomen and pelvis was done on admission which showed moderate to severe ascites. Musculoskeletal system is significant for chronic lower extremity lymphatic edema and nonhealing ulcers. Psychosocial system significant for depression and noncompliance. Neurological system negative for seizures or stroke. Hematological system is negative for any long-term anticoagulation. PHYSICAL EXAMINATION: The patient is awake and at his baseline mentation sitting in the chair at the time of my visit this morning. Temperature 97.4 degrees Fahrenheit, heart rate 103 per minute and respiratory rate 17 per minute. Blood pressure 131/68 mmHg and oxygen saturation 98% on room air. His head is atraumatic. Neck is supple and jugular venous distention (JVD) mildly elevated. Heart sounds are tachycardiac and lungs with diminished breath sounds at bases. Abdomen remarkably distended and firm. Bowel sounds are present. He has bilateral scrotal swelling with possible hydroceles. Extremities have no cyanosis or clubbing. He has an AV fistula in his left upper extremity. Lower extremities have chronic lymphatic edema with ulcers and dressings are present on the legs. Neurologically he is at his baseline mentation. LABORATORY DATA: Today WBC count is 2.7, hemoglobin 9.8 and hematocrit 32.8. Platelets 108. Sodium 137, potassium 4.7, CO2 28, BUN 31, creatinine 6.63 and calcium 7.6. INR is 1.30. PROBLEMS: 1. End-stage renal disease. The patient was dialyzed yesterday and next dialysis is due tomorrow. There is no emergent need for dialysis today. 2. Abdominal pain and distension. He has moderate to large amount of ascites and would benefit from paracentesis. I have discussed with the resident staff and advised to get paracentesis done today. 3. Bilateral lower extremity lymphatic edema and ulcers. These are chronic issues and he has been on antibiotic therapy with Levaquin and linezolid. He should continue. The patient has declined followup with wound care clinic. 4. Chronic systolic congestive heart failure. Unfortunately the patient has been quite noncompliant with dietary and fluid restrictions. His weight gains between dialysis treatments have been 5 kg or above. He needs to follow his fluid restriction and then it will make it easy for us to maintain his volume status. Thank you for involving me in the care of Mr. Paulson. I will follow him along with you.
--- NOTE | 2019-11-26 13:07 | IPNPDOC ---
Date Seen The patient was seen on 11/26/19. Progress Note SUBJECTIVE: Patient was seen and examined this morning states that the blood in his stool has resolved. The RUQ abdominal pain is unchanged from yesterday. Otherwise patient denies chest pain, shortness breath, nausea, vomiting, fevers, chills. OBJECTIVE PHYSICAL EXAMINATION: VITAL SIGNS: Please see below. GENERAL: Pleasant 48 yr old male sitting up in chair awake alert oriented speaking in complete sentences no acute distress. HEENT: Atraumatic, normocephalic, moist mucous membranes no elevated JVD. CARDIOVASCULAR: S1 S2 regular with RUSB 2/6 pansystolic murmur. RESPIRATORY: Clear to auscultation bilaterally with no rales, rhonchi or wheezing. ABDOMINAL: Bowel sounds present in all 4 quadrants. Distended obese abdomen. T cristiane in RUQ with negative [place] sign. Umbilical Hernia present. EXTREMITIES: Edema, 3+ chronic LE lymphedema with bandage wraps on NEUROLOGICAL: No gross focal deficits appreciated PSYCHOLOGICAL: Appropriate LABORATORY DATA, MICROBIOLOGY: Please see below. IMAGING STUDIES: CT Abdominal/Pelvis Impression: Moderate to large amount of diffuse abdominal ascites. Hepatosplenomegaly .Chronic atelectasis left lower lobe and lingula with pleural thickening and minimal pleural fluid left base. [place] kidneys are markedly atrophic. ASSESSMENT AND PLAN: This is a 48-year-old male with with ESRD on HD (MWF), diet controlled DM, AOCI, GERD, HTN, HFrEF and pulmonary hypertension who presented from HD per recommendation of his finish mixer for admission for acute hematochezia over the last 24h hours with associated RUQ pain as well as massive weight gain with daina volume overload over a few days from his dry weight who is now being admitted for monitoring of his LGIB with at present stable H/H, as well as volume optimization with anasarca and ascites. PROBLEMS: 1. ESRD on HD, with current anasarca: -consult nephrology to continue volume optimization via HD -c/w torsemide 100 QD, phoslo, velphoro 2. LGIB, resolved -possibly due to slow diverticular bleed vs. hemorrhoidal bleed vs obstruction or mass -H/H remains stable 3. Lower Extremity Lyphedema -Consult wound care -Discontinue Levoquin and Linezolid 4. Abdominal pain with significant ascites: -CT Abdomen confirms significant ascites -Consulting IR for paracentesis -INR pending 5. HTN: -c/w home amlodipine, coreg, lisinopril, toprol, doxazosin 6. Gout: -c/w allopurinol and uloric DVT prophylaxis: SCDS and TEDS DISPOSITION: Pending paracentesis and dialysis Saturday11/27/2019. VS, I&O, 24H, Fishbone Vital Signs/I&O Vital Signs Date Time Temp Pulse Resp B/P (MAP) Pulse Ox O2 Delivery O2 Flow Rate FiO2 11/26/19 12:00 97.2 88 15 143/70 (94) 97 Room Air I&O- Last 24 Hours up to 6 AM 11/26/19 06:00 Intake Total 0 ml Output Total 0 ml Balance 0 ml Laboratory Data 24H LABS Laboratory Tests 2 11/25/19 15:57: Bedside Glucose (Misc Panel) 62L 11/25/19 19:26: Bedside Glucose (Misc Panel) 81 11/25/19 20:12: Bedside Glucose (Misc Panel) 87 11/26/19 05:32: Nucleated Red Blood Cells % (auto) 0.0, Anion Gap 6L, Glomerular Filtration Rate 9.5L, Calcium Level 7.6L, Magnesium Level 2.2, Total Bilirubin 0.7, Aspartate Amino Transf (AST/SGOT) 12, Alanine Aminotransferase (ALT/SGPT) 14, Alkaline Phosphatase 212H, Total Protein 7.6, Albumin 3.2, Albumin/Globulin Ratio 0.73L 11/26/19 08:34: Iron Level 58L, Total Iron Binding Capacity 164L, Transferrin % Saturation 35.4, Ferritin 1263H, Vitamin B12 Level 520, Folate 5.0L 11/26/19 10:14: Prothrombin Time 15.9H, Prothromb Time International Ratio 1.30 11/26/19 11:39: Bedside Glucose (Misc Panel) 82 CBC/BMP Laboratory Tests 11/26/19 05:32 GME ATTESTATION GME ATTESTATION My faculty preceptor for this patient encounter was physically present during the encounter and was fully available. All aspects of the patient interview, e xamination, medical decision making process, and medical care plan development were reviewed and approved by the faculty preceptor. The faculty preceptor is aware and concurs with the plan as stated in the body of this note and will attest to such by his/her cosignature. ATTENDING NOTE 48-year-old M with with ESRD on HD (MWF), diet controlled DM, AOCI, GERD, HTN, HFrEF and pulmonary hypertension who presented from HD per recommendation of his finish mixer for admission for acute hematochezia with associated RUQ pain as well as massive weight gain with daina volume overload and large ascites on imaging, now pending paracentesis this afternoon with nephrology following, and hematochezia resolved with a stable H/H. SEMAJ CUEVA OMS-3 Nov 26, 2019 13:07 CARMELLA GAGE MD Nov 26, 2019 13:47
[2019-11-26 17:40] LABS: SOURCE, BODY FLUID ASCITES
[2019-11-26 17:41] LABS: APPEARANCE, BODY FLUID HAZY (CLEAR); ASCITES FL COLOR YELLOW (COLORLESS); SOURCE, BODY FLUID ALBUMIN ASCITES; SOURCE, BODY FLUID GLUCOSE ASCITES; SOURCE, BODY FLUID TOT PROTEIN ASCITES; SPEC. GRAVITY BODY FLUIDS 1.029 (NOT ESTABLISHED); TOTAL PROTEIN, BODY FLUID 4.7 G/DL (NOT ESTABLISHED)
[2019-11-26] MEDS ORDERED: NORCO, ANEXSIA 5/325MG TABLET (HYDROcodone/ACETAMINOPHEN) PO ONE (18:00)
[2019-11-26] MEDS: DOXAZOSIN MESYLATE 4 MG TAB PO SCH (21:00)
[2019-11-27] VITALS: BP 129/64
[2019-11-27] MEDS ORDERED: oxyCODONE 5MG TAB PO ONE
[2019-11-27 06:05] LABS: HEMATOCRIT 33.3 % (42.0-52.0); MEAN CORPUSCULAR HEMOGLOBIN 31.8 pg (27.0-33.0); MEAN CORPUSCULAR VOLUME 106.1 fl (80.0-96.0); PLATELET COUNT, AUTOMATED 117 10^3/uL (150-450); RED BLOOD COUNT 3.14 10^6/uL (4.30-6.10); WHITE BLOOD COUNT 3.1 10^3/uL (4.0-10.0)
[2019-11-27 06:38] LABS: CALCIUM LEVEL 7.7 MG/DL (8.5-10.1); CREATININE FOR GFR 8.16 MG/DL (0.70-1.30); GLOMERULAR FILTRATION RATE 7.4 (>56); POTASSIUM SERUM 4.7 MEQ/L (3.5-5.1); TOTAL PROTEIN 7.1 GM/DL (6.4-8.2)
[2019-11-27] MEDS: HumaLOG INSULIN (NovoLOG) PER UNIT SC SCH ×2 (07:27→12:00)
[2019-11-27 08:00] VITALS: BP 139/75
[2019-11-27] MEDS: CALCIUM ACETATE 667 MG GELCAP PO SCH ×2 (08:00→12:30)
[2019-11-27] MEDS: SUCROFERRIC OXYHYDROXIDE 500MG CHEW TAB (VELPHORO) PO SCH ×2 (08:00→12:30)
--- NOTE | 2019-11-27 08:23 | REP ---
Ultrasound-guided paracentesis The procedure was performed under the direct supervision of Dr. Mason. The risks and benefits of the procedure were explained to the patient and informed consent was obtained. The largest pocket of fluid was localized in the left lower quadrant using ultrasound guidance. The skin was prepped and draped in a sterile fashion. 1% lidocaine was used as a local anesthetic. An 8-[place] multi side-hole catheter was inserted using trocar technique. 7100 ml of yellow fluid was withdrawn with a sample sent to the lab for analysis. The patient tolerated the procedure well and there were no immediate complications. After the appropriate amount of monitored convalescence the patient was discharged from the department. Electronically Signed by ALLIE Arguello 11/26/2019 05:33 P Electronically Signed by Barrera Mason MD 11/27/2019 08:13 A
[2019-11-27] MEDS: allopurinoL 100 MG TAB PO SCH (09:00)
[2019-11-27] MEDS: CARVedilol 6.25 MG TAB PO SCH (09:00)
[2019-11-27] MEDS: METOPROLOL SUCC (TopROL XL) 100MG *XL* TAB PO SCH (09:00)
[2019-11-27] MEDS: PRAVASTATIN 20 MG TAB PO SCH (09:00)
[2019-11-27] MEDS: amLODIPine 5 MG TAB PO SCH (09:00)
[2019-11-27] MEDS: OMEPRAZOLE 20 MG CAP PO SCH (09:00)
[2019-11-27] MEDS: FEBUXOSTAT 40 MG TABLET (ULORIC) PO SCH (09:00)
[2019-11-27] MEDS: OMEGA-3 1000MG CAPSULE PO SCH (09:00)
[2019-11-27] MEDS: TORSEMIDE 100 MG TAB PO SCH (09:00)
[2019-11-27] MEDS: lisinopriL 40 MG TAB PO SCH (09:00)
[2019-11-27] MEDS: NEPHRO-VIT TAB (NEPHROCAPS) PO SCH (09:00)
[2019-11-27] MEDS ORDERED: HEPARIN 1,000 UNITS/ML 10ML VIAL (FOR RADIOLOGY& DIALYSIS ONLY)(J1644-10) IV ONE (09:45)
--- NOTE | 2019-11-27 11:32 | DS.PDOC ---
Discharge Summary General Date of Admission Nov 25, 2019 at 17:19 Date of Discharge 11/27/2019 Specialist/Consultants Involve: TYRONE TRUJILLO MD @ Discharge Summary DISCHARGE DIAGNOSIS: Ascites SECONDARY DIAGNOSIS: 1. ESRD with HD 2. Lower Extremity Lyphedema 3. Lower GI Bleed 4. HTN 5. Gout PROCEDURES PERFORMED DURING STAY: Paracentesis and hemodialysis CONSULTANTS: Dr. Trujillo, Nephrology HOSPITAL COURSE: This is a 49-year-old male with ESRD on HD (MWF) who presented from HD per recommendation of his senior director of strategy for admission for acute hematochezia that had lasted 24 hours with associated RUQ pain as well as massive weight gain with daina volume overload over a few days from his dry weight. During admission he had regular non bloody bowl moments. His H/H remained stable. His hematochezia was attributed to diverticular disease, that resolved on its own without any surgical or GI intervention. His hospital stay was complicated by significant ascites from volume overload. He underwent oaracentesis to remove 7100 ml of fluids, he tolerated the procedure and was discharged the following day after inpatient dialysis. He will follow up with his PCP 7-10 days after discharge. He will follow up with Dr. Trujillo as scheduled and resume outpatient dialysis on Saturday. DISCHARGE MEDICATIONS: Please see below. ALLERGIES: Please see below. SUBJECTIVE: Otherwise patient denies chest pain, shortness, breath, nausea, vomiting, fevers, chills. OBJECTIVE: PHYSICAL EXAMINATION: VITAL SIGNS: Please see below. GENERAL: Pleasant 49 yr old male standing up eating breastfast awake alert oriented speaking in complete sentences no acute distress HEENT: Atraumtic, normocephalic moist mucous membranes no elevated JVD. CARDIOVASCULAR: S1 S2 regular with RUSB 2/6 pansystolic murmur. RESPIRATORY: Clear to auscultation bilaterally with no rales, rhonchi or w heezes. ABDOMINAL: Bowel sounds present in all 4 quadrants. Distended obese abdomen. Umbilical hernia present. EXTREMITIES: Edema, 3+ chronic LE lymphedema with bandage wraps on. NEUROLOGICAL: No gross focal deficits appreciated. PSYCHOLOGICAL: Appropriate. LABORATORY DATA, MICROBIOLOGY: Please see below. IMAGING STUDIES: 11/25/2019 CT Abdominal/Pelvis Impression: Moderate to large amount of diffuse abdominal ascites. Hepatosplenomegaly .Chronic atelectasis left lower lobe and lingula with pleural thickening and minimal pleural fluid left base. [place] kidneys are markedly atrophic. 11/26/2019 Paracentesis US Impression: 7100 ml of yellow fluid was withdrawn with sample sent to the lab for analysis. DVT prophylaxis ordered: SCDS and TEDS DISPOSITION: Home. DISCHARGE CONDITION: Improved and Stable. FOLLOW UP: 1. f.u. with PCP in 7-10 days. 2. f.u. with Dr. Rader outpatient as scheduled. Resume outpatient Dialysis on Saturday. 3. If symptoms return or worsen please call your primary care provider or return to the ED ACTIVITY: As prior to admission. DIET: As prior to admission TIME SPENT ON DISCHARGE: 50 minutes Vital Signs/I&Os Vital Signs Date Time Temp Pulse Resp B/P (MAP) Pulse Ox O2 Delivery O2 Flow Rate FiO2 11/27/19 08:00 97.4 90 16 139/75 (96) 98 Room Air I&O- Last 24 Hours up to 6 AM 11/27/19 06:00 Intake Total 710.0 ml Output Total 0 ml Balance 710.0 ml Laboratory Data Labs 24H Laboratory Tests 2 11/26/19 11:39: Bedside Glucose (Misc Panel) 82 11/26/19 16:30: Body Fluid Source ASCITES, Body Fluid Color YELLOW, Body Fluid Appearance HAZY, Body Fluid Specific [place] 1.029, Body Fluid WBC (Auto) 213H, Body Fluid RBC (Auto) < 2, Body Fluid Mononuclear Cells % Auto 84.5H, Fluid Polymorphonuclear Cell % Auto 15.5H, Body Fluid Glucose Source ASCITES, Body Fluid Glucose 99, Body Fluid Protein Source ASCITES, Body Fluid Total Protein 4.7, Body Fluid Albumin Source ASCITES, Body Fluid Albumin 2.3 11/27/19 05:38: Nucleated Red Blood Cells % (auto) 0.0, Anion Gap 7L, Glomerular Filtration Rate 7.4L, Calcium Level 7.7L, Total Bilirubin 1.0, Aspartate Amino Transf (AST/SGOT) 13, Alanine Aminotransferase (ALT/SGPT) 13, Alkaline Phosphatase 187H, Total Protein 7.1, Albumin 3.0L, Albumin/Globulin Ratio 0.73L CBC/BMP Laboratory Tests 11/27/19 05:38 FSBS Laboratory Tests Test 11/26/19 11:39 Range/Units Bedside Glucose (Misc Panel) 82 70-105 MG/DL Microbiology Microbiology 11/26/19 Acid Fast Stain, Received Pending 11/26/19 Mycobacterial Culture, Received Pending 11/26/19 Fungal Smear, Received Pending 11/26/19 Fungal Culture, Received Pending 11/26/19 Gram Stain - Final, Resulted 11/26/19 Body Fluid Culture, Resulted Pending Discharge Medications Scheduled Allopurinol (Allopurinol) 100 Mg Tablet, 100 MG PO DAILY, (Reported) Amlodipine Besylate (Amlodipine Besylate) 5 Mg Tab, 5 MG PO DAILY, (Reported) Calcium Acetate (Calcium Acetate) 667 Mg Tablet, 2,001 MG PO WM, (Reported) Carvedilol (Carvedilol) 6.25 Mg Tablet, 6.25 MG PO BID, (Reported) Doxazosin Mesylate (Cardura) 8 Mg Tab, 8 MG PO QHS, (Reported) Ergocalciferol (Vitamin D2) (Vitamin D2) 2,000 Unit Tab, 50,000 UNIT PO QWEEK, (Reported) Febuxostat (Uloric) 80 Mg Tab, 80 MG PO DAILY, (Reported) Lidocaine/Prilocaine (Lidocaine-Prilocaine Cream) 2.5%/2.5% Cream..g., 1 DOSE TOP ASDIRECTED, (Reported) APPLY TO PORT 1 TO 2 HOURS PRIOR TO DIALYSIS Lisinopril (Lisinopril) 40 Mg Tablet, 40 MG PO BID, (Reported) Metoprolol Succinate (Metoprolol Succinate) 100 Mg Tab.er.24h, 100 MG PO BID, (Reported) [place]-3 Acid Ethyl Esters (Lovaza) 1 Cap Cap, 2,000 MG PO BID, (Reported) Omeprazole (Omeprazole) 40 Mg Cap, 40 MG PO DAILY, (Reported) Patiromer Calcium Sorbitex (Veltassa) 8.4 Gm Pow, 8.4 GM PO 3XW, (Reported) NON-DIALYSIS DAY. TUES, THSUZETTE, SAT Pravastatin Sodium (Pravastatin Sodium) 80 Mg Tablet, 80 MG PO DAILY, (Reported) Sucroferric Oxyhydroxide (Velphoro) 500 Mg Chw, 1,500 MG PO WM, (Reported) Torsemide (Torsemide) 100 Mg Tablet, 100 MG PO DAILY, (Reported) Vit B Comp No.3/Folic/C/Biotin (Nephro-[place] Rx Tablet) 1 Tab Tab, 1 TAB PO DAILY, (Reported) Scheduled PRN Albuterol Sulfate (Ventolin Hfa) 18 Gm Hfa.aer.ad, 2 PUFF INH Q6H PRN for SHORTNESS OF BREATH, (Reported) Hydroxyzine HCl (Hydroxyzine HCl) 25 Mg Tablet, 25 MG PO BID PRN for ITCHING, (Reported) Lanolin Alcohol/Mo/W.pet/[place] (Eucerin Creme) 454 Gm Cream..g., 1 DOSE TOP BID PRN for DRY SKIN, (Reported) Zolpidem Tartrate (Ambien) 10 Mg Tablet, 10 MG PO QHS PRN for SLEEP, (Reported) Miscellaneous Medications [Patient Comment] , (Reported) MEDICATION LIST OBTAINED FROM DIALYSIS CENTER. NO MEDICATIONS FILLED RECENTLY AT PATIENT'S PHARMACY. Allergies Coded Allergies: vancomycin (Verified Adverse Reaction, Mild, ITCHING, 11/25/19) GME ATTESTATION GME ATTESTATION My faculty preceptor for this patient encounter was physically present during the encounter and was fully available. All aspects of the patient interview, examination, medical decision making process, and medical care plan development were reviewed and approved by the faculty preceptor. The faculty preceptor is aware and concurs with the plan as stated in the body of this note and will attest to such by his/her cosignature. ATTENDING NOTE 49-year-old M with ESRD on HD (MWF) who presented from HD per recommendation of his senior director of strategy for admission for acute hematochezia as well as RUQ pain with massive weight gain with daina volume overload over a few days from his dry weight. During his course, he had a large volume paracentesis with removal of 7.1L of fluid that was negative for SBP, abdominal imaging had been notable for daina ascites and hepatosplenomegaly but no obvious cause of bleeding or inflammatory process with some diverticulosis. His hematochezia, spontaneously resolved and he had no episodes while in the hospital and had stable baseline anemia per his prior labs. Nephrology was consulted and had HD this morning and is now being discharged home to follow up with nephrology. He will follow up with Dr. Trujillo as scheduled and resume outpatient dialysis on Saturday. SEMAJ CUEVA OMS-3 Nov 27, 2019 11:32 RAAD FULTON DO Nov 27, 2019 13:06 CARMELLA GAGE MD Nov 28, 2019 08:31
[2019-11-27 13:25] VITALS: BP 131/70
--- NOTE | 2019-11-27 16:03 | IPN ---
DATE: 11/27/2019 Mr. Paulson is seen this morning during hemodialysis. He is feeling much better as his abdominal distension has resolved after paracentesis yesterday when 7.1 liters fluid was removed. He denies any further rectal bleeding since admission. He has no dyspnea or chest pain and is tolerating dialysis treatment very well. PHYSICAL EXAMINATION Temperature 97.4 degrees Fahrenheit, heart rate 88 per minute and respiratory rate 18 per minute. Blood pressure 131/70 mmHg and oxygen saturation 99% on room air. Head is atraumatic. Neck: Supple and without any abnormal jugular venous distention (JVD) or thyroid enlargement. Heart: Sounds are distant but regular. Lungs with diminished breath sounds at bases. Abdomen is much less distended today and bowel sounds are normal. Extremities with no cyanosis or clubbing. Lower extremity chronic stasis is unchanged and leg wounds are covered with dressings. Neurologically he is at his baseline mentation without a focal deficit. Today's labs show WBC count 3.1, hemoglobin 10.0 and hematocrit 33.3. Platelets 117. Sodium 135, potassium 4.7, BUN 40, creatinine 8.16, glucose 111 and calcium 7.7. Total bilirubin was 1.0 and alkaline phosphatase 187. AST 13 and ALT also 13. PROBLEMS 1. End-stage renal disease. The patient is being dialyzed today and is tolerating dialysis treatment very well. We are removing about 5 liters of fluid as tolerated. 2. Abdominal distension and pain. The patient had large amount of ascites and 7.1 liters fluid was removed yesterday. I have discussed with him at length about need for compliance with salt and fluid restriction. Unfortunately, he has been very noncompliant with fluid restriction and gains more than 5 kg between dialysis treatments. We are removing 5 liters today which he has tolerated very well. We will try to keep him euvolemic as much as possible. I have also explained to the patient that he is likely to require paracentesis if he reaccumulates ascites. 3. Chronic leg edema. There is a chronic issue with venous stasis and congestive heart failure due to noncompliance with fluid restriction. We will keep our efforts to correct his volume status as much as possible and I have discussed with him about his responsibility for following fluid restriction. 4. Rectal bleeding and anemia. His anemia is stable at present and did not have any further bleeding since admission. No intervention is indicated at present. He has declined a colonoscopy or any further assessment. 5. Disposition: From a renal standpoint, the patient will be ready for discharge anytime after dialysis today.
--- NOTE | 2019-11-27 21:49 | CR ---
DATE OF CONSULTATION: 11/26/2019 The patient is a 49-year-old white male who was asked to be seen by GI for an apparent episode of rectal bleeding. The patient has multiple medical problems including end-stage renal disease on hemodialysis. He has diabetes mellitus, iron deficiency anemia, reflux, hypertension, pulmonary hypertension and is being followed by nephrology. The patient was admitted for acute hematochezia for approximately 24 hours with apparent right upper quadrant pain. The patient has had massive weight gain with chronic fluid overload over several days prior to admission. The patient relates that he had an episode of bright red blood per rectum and apparently four more bouts with a bowel movement. The patient was found to be hemodynamically stable in the emergency room. Abdominal CT was ordered and showed moderate to large ascites with hepatosplenomegaly. No evidence of any bowel obstruction. MEDICATIONS Numerous including allopurinol, amlodipine, carvedilol, Cardura, uboric, Levaquin, lidocaine as needed, linezolid, lisinopril, metoprolol, omeprazole, pravastatin and torsemide. ALLERGIES: VANCOMYCIN. PAST MEDICAL HISTORY: Is as above. FAMILY HISTORY: Noncontributory to the above problem. SOCIAL HISTORY: Cigarettes: None. Alcohol: None. Drugs: None. REVIEW OF SYSTEMS: Noncontributory to the above problem. Well-developed, obese white male with obvious anasarca. LABS: Laboratory studies on admission showed a white count of 2800, hemoglobin and hematocrit of 10.4 and 34.4, which has been stable. The patient's INR on admission was normal 1.30. The patient's chemistry showed normal liver functions. The patient's BUN is 5, creatinine is 25. The patient is on hemodialysis. Lipase was normal. IMAGING STUDIES Include abdominal CT on 11/25/2019 which impression was moderate to large amount of ascites with hepatosplenomegaly. ANALYSIS: Lower GI bleeding. The bleeding is possibly secondary to hemorrhoids. PLAN: At the present time the plan will be to have the patient worked up as an outpatient for a colonoscopy since he has excessive fluid overload and it may take a while to correct. The patient is stable and does not require an acute endoscopic intervention.
[2019-11-28] MEDS ORDERED: VITAMIN D 50,000 UNITS CAPSULE (ERGOCALCIFEROL 1.25MG) PO SCH (09:00)
== END 2019-11-27 15:13 | disposition home or self-care (01) | DRG 377 ==
LOC: EDBD 09:54 → M ED 09:54 → CANBEDREQ 16:46 → M ED INP 17:19 → ENRESERVDT 18:17 → ENRESERVTM 18:17 → M PCU 19:45
PROVIDERS: ADMIT Internal Medicine; ATTEND Internal Medicine
PROC: 0W9G3ZZ Drainage of Peritoneal Cavity, Percutaneous Approach (ICD-10-PCS; 2019-11-26)
PROC: 5A1D70Z Performance of Urinary Filtration, Intermittent, Less than 6 Hours Per Day (ICD-10-PCS; principal; 2019-11-27)
DX: K92.1 Melena (principal); N18.6 End stage renal disease; R18.8 Other ascites; I13.2 Hypertensive heart and chronic kidney disease with heart failure and with stage 5 chronic kidney disease, or end stage renal disease; I50.22 Chronic systolic (congestive) heart failure; N25.81 Secondary hyperparathyroidism of renal origin; Z99.2 Dependence on renal dialysis; E11.22 Type 2 diabetes mellitus with diabetic chronic kidney disease; D50.9 Iron deficiency anemia, unspecified; K21.9 Gastro-esophageal reflux disease without esophagitis; I27.20 Pulmonary hypertension, unspecified; D72.819 Decreased white blood cell count, unspecified; Z79.899 Other long term (current) drug therapy; Z88.1 Allergy status to other antibiotic agents; I89.0 Lymphedema, not elsewhere classified; M10.9 Gout, unspecified; Z91.19 Patient's noncompliance with other medical treatment and regimen; Z79.2 Long term (current) use of antibiotics; Z91.11 Patient's noncompliance with dietary regimen

== ENCOUNTER → 2019-12-15 | Outpatient (CLI) | payer MEDICARE, MEDICAID ==
[~2019-12-15] MED LIST changes: +ALLO10TA PO; +CALC667T2 PO; +CARV6.25 PO; +EUCECRE8 TOP; +HYDR-3363 PO; +LEVA1TAB2 PO; +LIDO2.5C15 TOP; +LINE1TAB6 PO; +LISI40TA PO; +METO1TAB33 PO; +PATIENT COMMENT; +VENTAER INH
[2019-12-15 11:06] VITALS: BP 142/77
--- NOTE | 2019-12-15 17:51 | REP ---
Ultrasound-guided paracentesis The procedure was performed by ALLIE Dolan, under the direct supervision of Dr. Mason. The risks and benefits of the procedure were explained to the patient and informed consent was obtained both verbally and written. Directly prior to the start of the procedure, a formal timeout was completed in the procedure room. Under ultrasound guidance, the largest pocket of fluid in the left flank was localized and skin was marked. The skin was then prepped and draped in a sterile fashion. 10 ml of 1% lidocaine 10 mg/ml was used as a local anesthetic. Using ultrasound guidance, an 8-Syriac multi side-hole catheter was inserted using trocar technique. 5,650 mL of dark yellow colored fluid was withdrawn and discarded. The patient tolerated the procedure well and there were no immediate complications. After the appropriate monitored convalescence the patient was discharged from the department. Reviewed by ALLIE Avendaño 12/15/2019 11:08 A Electronically Signed by Barrera Mason MD 12/15/2019 05:42 P
== END ==
LOC: M IRPRO 09:18
PROVIDERS: ATTEND Internal Medicine Nephrology
DX: R18.8 Other ascites (principal)

== ENCOUNTER → 2020-11-01 | Outpatient (CLI) | payer MEDICARE, MEDICAID ==
[~2020-11-01] MED LIST changes: -AMLO10TA5 PO; +AMLO1TAB24 PO; +AMLO1TAB25 PO; -AMLO5TAB6 PO; -LISI40TA PO; +LISI40TA4 PO
--- NOTE | 2020-11-01 09:30 | REP ---
INDICATION: LEFT LEG SWELLING, ? SOFT TISSUE SWELLING VS ABSCE COMPARISON: None TECHNIQUE: Realtime grayscale ultrasound examination using linear high-frequency transducer FINDINGS: Ultrasound examination demonstrates subcutaneous edema without discrete fluid collection/abscess. IMPRESSION: Generalized edema. No fluid collection/abscess. <Electronically signed by Saran Orozco > 11/01/20 [id number]
== END ==
LOC: M RAD 08:44
PROVIDERS: ATTEND Physician Assistant
DX: M79.89 Other specified soft tissue disorders (principal); I87.312 Chronic venous hypertension (idiopathic) with ulcer of left lower extremity; L97.822 Non-pressure chronic ulcer of other part of left lower leg with fat layer exposed

== ENCOUNTER 2021-01-06 09:43 | Inpatient (IN) | payer MEDICARE, MEDICAID ==
[~2021-01-06] VITALS: Ht 177.8 cm; Wt 117.4 kg
[2021-01-06 10:31] LABS: BASO % 0.8 % (0.0-1.0); EOS # 0.2 10^3/uL (0.0-0.5); HEMOGLOBIN 11.8 g/dl (13.5-17.5); LYMPH # 0.7 10^3/uL (1.5-5.0); MEAN CORPUSCULAR HEMOGLOBIN 31.8 pg (27.0-33.0); MEAN CORPUSCULAR HGB CONC 31.9 g/dl (32.0-36.5); MEAN CORPUSCULAR VOLUME 99.7 fl (80.0-96.0); MONO # 0.5 10^3/uL (0.0-0.8); NEUTROPHILS # 2.4 10^3/uL (1.5-8.5); NEUTROPHILS % 62.7 % (36.0-66.0); PLATELET COUNT, AUTOMATED 152 10^3/uL (150-450); RED BLOOD COUNT 3.71 10^6/uL (4.30-6.10); WHITE BLOOD COUNT 3.8 10^3/uL (4.0-10.0)
[2021-01-06 10:41] LABS: INR 1.12; PROTHROMBIN TIME 14.6 SECONDS (12.5-14.3)
[2021-01-06 10:42] LABS: PARTIAL THROMBOPLASTIN TIME 52.3 SECONDS (24.2-38.5)
--- NOTE | 2021-01-06 10:50 | REP ---
INDICATION: R/O DVT. COMPARISON: Comparison study August 27, 2019.. TECHNIQUE: Bilateral lower extremity duplex venous ultrasound. FINDINGS: The deep veins are anechoic and fully compressible from the groin to the popliteal fossa in the left and right lower extremity. Color flow imaging is homogeneous. Spectral Doppler interrogation demonstrates intact respiratory variation in flow and normal manual augmentation of flow. There is no evidence of deep vein thrombosis. There is a 2.2 cm inguinal lymph node on the right with a thin cortical margin consistent with a normal lymph node. IMPRESSION: Negative bilateral lower extremity duplex venous ultrasound. No evidence of deep vein thrombosis. <Electronically signed by Danilo Mason > 01/06/21 104
[2021-01-06] MEDS ORDERED: PIPERACILLIN/TAZOBACTAM SOD 3.375 GM in D5W MINI-BAG PLUS 50 ML IV ONE (10:55)
[2021-01-06 11:03] LABS: ALBUMIN 3.6 GM/DL (3.2-5.2); BILIRUBIN,DIRECT 0.4 MG/DL (0.0-0.2); BILIRUBIN,TOTAL 0.9 MG/DL (0.2-1.0); C REACTIVE PROTEIN QUANTITATIV 4.76 MG/DL (0.00-0.30); CALCIUM LEVEL 9.5 MG/DL (8.5-10.1); CREATININE FOR GFR 3.94 MG/DL (0.70-1.30); GLOMERULAR FILTRATION RATE 17.2 (>56); PHOSPHORUS LEVEL 3.8 MG/DL (2.5-4.9); POTASSIUM SERUM 3.5 MEQ/L (3.5-5.1); TOTAL PROTEIN 9.2 GM/DL (6.4-8.2)
[2021-01-06 11:17] LABS: ERYTHROCYTE SEDIMENTATION RATE 70 mm/hr (0-20)
[2021-01-06] MEDS ORDERED: ELIQ2.5T PO (11:30)
[2021-01-06] MEDS ORDERED: CARV12.5 PO (11:30)
[2021-01-06] MEDS ORDERED: HYDR-3363 PO (11:30)
[2021-01-06] MEDS ORDERED: FOLI1TAB11 PO (11:30)
[2021-01-06] MEDS ORDERED: FAMO1TAB11 PO (11:30)
[2021-01-06 12:40] LABS: RSV AMPLIFICATION NEGATIVE (NEGATIVE)
[2021-01-06] MEDS ORDERED: HEPARIN SOD (PORCINE) 5000UNITS/ML 1ML VIAL/SYRINGE SC SCH (14:35)
[2021-01-06] MEDS ORDERED: ALBUTEROL 90 MCG/ACT 8GM HFA INHALER INH PRN (14:50)
[2021-01-06] MEDS ORDERED: hydrOXYzine 25 MG TAB PO PRN (14:50)
[2021-01-06] MEDS ORDERED: D5W MINI IV SCH (15:00)
[2021-01-06] MEDS ORDERED: CEFTAROLINE FOSAMIL IV SCH (15:00)
--- NOTE | 2021-01-06 15:05 | HPEPDOC ---
General Date of Admission 01/06/21 Date of Service: Jan 06, 2021 Chief Complaint The patient is a 50-year-old male admitted with a reason for visit of Leg Pain. Source: Patient Exam Limitations: No limitations Timing/Duration: Day(s) Severity: Moderate History of Present Illness Patient is 50 years old male with past medical history of hypertension, type 2 diabetes, end-stage renal diseases, chronic lymphedema presented to the hospital with pain and erythema of both legs. Patient stated that he has been having leg distal pain with increased redness for past 2 weeks. Patient has chronic lymphedema and he follows by Dr. Macario for wound care. Patient lives alone and he stated that is difficult for him to take care about his legs. For past 2 days he has been having increased pain in the distal legs. Patient denied fever, chills, nausea, vomiting, diarrhea. He didn't notice any purulent discharge from lower extremities. In ER patient was found to have no leukocytosis, hemoglobin 11.8, sodium 152, creatinine 3.9, glucose 90. Of note patient had dialysis today. Doppler ultrasound was done and it was negative for DVT. EKG was done and showed atrial fibrillation with rapid ventricular rate, no any acute ST changes. Home Medications Scheduled Apixaban (Eliquis) 2.5 Mg Tablet, 2.5 MG PO BID, (Reported) Carvedilol (Carvedilol) 12.5 Mg Tablet, 12.5 MG PO BID, (Reported) Famotidine (Famotidine) 20 Mg Tablet, 20 MG PO BID, (Reported) Folic Acid (Folic Acid) 1 Mg Tablet, 1 MG PO DAILY, (Reported) Pravastatin Sodium (Pravastatin Sodium) 80 Mg Tablet, 80 MG PO DAILY, (Reported) Scheduled PRN Albuterol Sulfate (Ventolin Hfa) 18 Gm Hfa.aer.ad, 2 PUFF INH Q6H PRN for SHORTNESS OF BREATH, (Reported) Hydroxyzine HCl (Hydroxyzine HCl) 25 Mg Tablet, 25 MG PO Q12H PRN for ITCHING, (Reported) Miscellaneous Medications [Patient Comment] , (Reported) MED LIST OBTAINED FROM PCP OFFICE Allergies Coded Allergies: vancomycin (Verified Adverse Reaction, Mild, ITCHING, 11/25/19) Past Medical History Medical History HTN DM TYPE 2 End-stage renal diseases, HE IS ON DIALYSIS ELEVATED CHOLESTEROL IRON DEFENCIENCY ANEMIA COPD OBESITY GOUT ESRD Chronic lymphedema Surgical History DIALYSIS FISTULA, LEFT WRIST Family History FATHER: , DIAGNOSED WITH HYPERTENSION, UNSPECIFIED HEART DISEASE, DIABETES MOTHER: ALIVE, HEART AND LUNG DISEASE, HYPERTENSION, UNSPECIFIED HEART DISEASE, DIABETES SIBLINGS: SIBLINGS HAVE DM, HYPERTENSION, DIABETES 2 BROTHER(S) , 3 SISTER(S) . NO KNOWN FAMILY HISTORY OF ANY UROLOGICALLY RELATED DISEASES, CANCERS. MOTHER HAD OPEN HEART SURGERY AND PARTIAL LUNG REMOVAL. ALL SIBLINGS ARE DIABETIC. Social History * Smoker: Denies Alcohol: Denies Drugs: denies A-FIB/CHADSVASC A-FIB History Current/History of A-Fib/PAF?: No Current PO Anticoag Therapy: No Review of Systems Constitutional: Denies: Chills, Fever ENT: Denies: Head Aches Skin: Reports: Lesions, Breakdown Pulmonary: Denies: Dyspnea Cardiovascular: Denies: Chest Pain, Palpitations Gastrointestinal: Denies: Nausea, Vomiting Genitourinary: Reports: Other Symptoms (on dialysis) Hematologic: Denies: Bruising Endocrine: Denies: Polydipsia Musculoskeletal: Denies: Neck Pain, Back Pain Neurological: Denies: Weakness Psych: Reports: Mood Normal Physical Examination General Exam: Positive: Alert, Cooperative ENT Exam: Positive: Atraumatic Neck Exam: Positive: Supple, JVD Chest Exam: Positive: Diminished Heart Exam: Positive: Rate Normal Telemetry: Positive: No significant arrhythmia Abdomen Exam: Positive: Normal bowel sounds Extremity Exam: Negative: Clubbing Skin Exam: Positive: Breakdown (multiple superficial wounds on different stages of healing of both legs), Lesion, Other skin issue (erythema of both distal legs associated with significant lymphedema) Neuro Exam: Positive: Strength at 5/5 X4 ext Psych Exam: Positive: Mental status NL Vital Signs Vital Signs Date Time Temp Pulse Resp B/P (MAP) Pulse Ox O2 Delivery O2 Flow Rate FiO2 01/06/21 11:49 82 16 100 Room Air 01/06/21 11:30 121/66 (84) Laboratory Data Labs 24H Laboratory Tests 2 01/06/21 10:03: Immature Granulocyte % (Auto) 0.5, Neutrophils (%) (Auto) 62.7, Lymphocytes (%) (Auto) 19.0L, Monocytes (%) (Auto) 13.0H, Eosinophils (%) (Auto) 4.0H, Basophils (%) (Auto) 0.8, Neutrophils # (Auto) 2.4, Lymphocytes # (Auto) 0.7L, Monocytes # (Auto) 0.5, Eosinophils # (Auto) 0.2, Basophils # (Auto) 0.0, Nucleated Red Blood Cells % (auto) 0.0, Erythrocyte Sedimentation Rate 70H, Prothrombin Time 14.6H, Prothromb Time International Ratio 1.12, Activated Partial Thromboplast Time 52.3H, Anion Gap 5L, Glomerular Filtration Rate 17.2L, Lactic Acid Level 1.2, Calcium Level 9.5, Phosphorus Level 3.8, Magnesium Level 2.0, Total Bilirubin 0.9, Direct Bilirubin 0.4H, Aspartate Amino Transf (AST/SGOT) 17, Alanine Aminotransferase (ALT/SGPT) 24, Alkaline Phosphatase 212H, C-Reactive Protein, Quantitative 4.76H, Total Protein 9.2H, Albumin 3.6, Albumin/Globulin Ratio 0.6 01/06/21 10:15: Coronavirus (COVID-19)(PCR) NEGATIVE, Influenza Type A (RT-PCR) NEGATIVE, Influenza Type B (RT-PCR) NEGATIVE, Respiratory Syncytial Virus (PCR) NEGATIVE CBC/BMP Laboratory Tests 01/06/21 10:03 Microbiology Microbiology 01/06/21 Wound Culture, Received Pending 01/06/21 Gram Stain - Final, Resulted 01/06/21 Wound Culture, Resulted Pending 01/06/21 Blood Culture, Received Pending 01/06/21 Blood Culture, Received Pending Assessment/Plan Patient is 50 years old male with past medical history of hypertension, type 2 diabetes, end-stage renal diseases, chronic lymphedema presented to the hospital with pain and erythema of both legs. Patient stated that he has been having leg distal pain with increased redness for past 2 weeks. Patient has chronic lymphedema and he follows by Dr. Macario for wound care. Patient li ves alone and he stated that is difficult for him to take care about his legs. For past 2 days he has been having increased pain in the distal legs. Patient denied fever, chills, nausea, vomiting, diarrhea. He didn't notice any purulent discharge from lower extremities. In ER patient was found to have no leukocytosis, hemoglobin 11.8, sodium 152, creatinine 3.9, glucose 90. Of note patient had dialysis today. Doppler ultrasound was done and it was negative for DVT. Problems (1) Cellulitis Status: Acute Problem Text: Secondary to poor care and noncompliance Ceftaroline IV loss mitigation specialist consult Blood culture, wound culture Elevate legs Patient has significant lymphedema. Will proceed with CT of both distal legs to rule out abscesses. Pain management (2) ESRD on dialysis Status: Acute Problem Text: Nephrology team on board (3) Diabetes mellitus Status: Chronic Problem Text: Diabetes diet Glucose under control Insulin sliding scale (4) Hypertension Status: Chronic Problem Text: Continue home cardioprotective medication (5) Hyperlipidemia Status: Chronic Problem Text: Continue statin (6) Atrial fibrillation Status: Chronic Problem Text: Eliquis 2.5 twice a day I started metoprolol 25 twice a day due to rapid ventricular rate of 110 Telemetry Plan / VTE VTE Prophylaxis Ordered?: Yes SWATI MONTAGUE DO Jan 06, 2021 15:05
--- NOTE | 2021-01-06 15:30 | REP ---
INDICATION: abscesses. COMPARISON: None. TECHNIQUE: CT of the tibia and fibula bilaterally without IV contrast. FINDINGS: There is diffuse circumferential soft tissue edema throughout the visualized lower extremities from the knees to the ankles bilaterally. There is no focal fluid collection on the right or the left to suggest abscess or hematoma. Mineralization is normal bilaterally. There are no lytic, blastic or destructive skeletal changes to suggest osteomyelitis. IMPRESSION: Diffuse circumferential soft tissue edema bilaterally. No focal fluid collections to suggest abscess or hematoma. No evidence of osteomyelitis. <Electronically signed by Robert Ryder > 01/06/21 [id number]
[2021-01-06 15:42] VITALS: BP 139/75
[2021-01-06] MEDS: MORPHINE 2 MG/ML 1ML VIAL (J2270) IV PRN ×2 (16:22→20:57)
[2021-01-06] MEDS ORDERED: ONDANSETRON 4MG/2ML VIAL IV ONE (16:30)
[2021-01-06] MEDS ORDERED: METOPROLOL TART 25 MG TABLET PO ONE (17:00)
--- NOTE | 2021-01-06 17:07 | ECGEPIP ---
[facility] Test Date: 2021-01-06 Pat Name: RAOUL MOREJON Department: Room: N3744-68 Gender: Male [employer] Maintainer: CARLOS : [id number] Requested By: SWATI MONTAGUE Order Number: [id number] Reading MD: Bayron Reyes Measurements Intervals Hardy Rate: 105 P: RI: QRS: -20 QRSD: 82 T: 119 QT: 360 QTc: 475 Interpretive Statements Atrial fibrillation with rapid ventricular response Low voltage QRS Possible old Septal infarct. Increased heart rate and atrial fibrillation new compared with 10/27/2015. Electronically Signed on 01-06-2021 17:07:23 EDT by Bayron Reyes
[2021-01-06] MEDS: ONDANSETRON 4MG/2ML VIAL IV SCH (18:18)
[2021-01-06] MEDS: ACETAMINOPHEN TAB 650MG DOSE (2X325MG) PO PRN ×3 (18:26→22:44)
[2021-01-06 18:35] VITALS: BP 124/66
[2021-01-06] MEDS ORDERED: MORPHINE 2 MG/ML 1ML VIAL (J2270) IV ONE (19:00)
[2021-01-06] MEDS ORDERED: LIDOCAINE 1% SDV 5ML VIAL SC PRN (20:05)
[2021-01-06] MEDS: CARVedilol 12.5 MG TAB PO SCH (20:55)
[2021-01-06] MEDS: APIXABAN 2.5 MG TAB (ELIQUIS) PO SCH (20:55)
[2021-01-06] MEDS: CEFTAROLINE FOSAMIL 200 MG in D5W 50 ML IV SCH (20:55)
[2021-01-06] MEDS: METOPROLOL TART 25 MG TABLET PO SCH (20:56)
[2021-01-06] MEDS: FAMOTIDINE 20 MG TAB PO SCH (20:56)
--- NOTE | 2021-01-06 21:57 | REPVR ---
PROCEDURE INFORMATION: Exam: US Duplex Lower Extremity Arteries Exam date and time: 01/06/2021 8:44 PM Age: 50 years old Clinical indication: Edema, localized; Lower extremity, bilateral; Additional info: Concern for compartment syndrome TECHNIQUE: Imaging protocol: Real-time ultrasound scan of the arteries of the bilateral lower extremities with 2-D martin scale, color Doppler flow and spectral waveform analysis. Images documented and saved. COMPARISON: US EXTREMITY NON VASCUL LIMITED 11/01/2020 9:15 AM FINDINGS: This examination is extremely limited secondary to diffuse lower extremity swelling and tissue edema. Right common femoral artery: Right proximal common femoral artery patent with a PSV of 101 cm/s and monophasic flow. Right distal common femoral artery patent with a PSV of 84 cm/s and monophasic flow. Right profunda femoris artery: Right profundus femoris artery patent with a PSV of 65 cm/s and biphasic flow. Right superficial femoral artery: Right proximal SFA patent with a PSV of 104 cm/s and monophasic flow. Right mid SFA patent with a PSV 132 cm/s and monophasic flow. Right distal SFA patent with a PSV of 131 cm/s and monophasic flow. Right popliteal artery: Right proximal popliteal artery patent with a PSV 127 cm/s and monophasic flow. Right distal popliteal artery patent with a PSV of 95 cm/s and monophasic flow. Right calf/foot arteries: Right proximal anterior tibial artery patent with a PSV 104 cm/s with monophasic flow. Right tibioperoneal trunk not visualized. Right proximal posterior tibial artery not visualized. Right distal posterior tibial artery patent with a PSV of 67 cm/s and monophasic flow. Right distal anterior tibial artery patent with a PSV of 59 cm/s and monophasic flow. Left common femoral artery: Left common femoral artery patent with a PSV of 101 cm/s and monophasic flow. Left profunda femoris artery: Left profunda femoris artery patent with a PSV of 58 cm/s and triphasic flow. Left superficial femoral artery: Left proximal SFA patent with a PSV of 112 cm/s and monophasic flow. Left mid SFA patent with a PSV of 109 cm/s and monophasic flow. Left distal SFA patent with a PSV of 133 cm/s and monophasic flow. Left popliteal artery: Left proximal popliteal artery patent with a PSV of 145 cm/s and monophasic flow. Left distal popliteal artery patent with a PSV of 164 cm/s and monophasic flow. Left calf/foot arteries: Left proximal anterior tibial artery patent with a PSV of 84 cm/s and monophasic flow. Left tibioperoneal trunk not visualized. Left proximal posterior tibial artery not visualized. Left distal posterior tibial artery visualized with no flow. Left distal anterior tibial artery patent with a PSV of 47 cm/s and monophasic flow. IMPRESSION: Extremely limited exam secondary to diffuse lower extremity swelling and tissue edema. Lower extremity compartment syndrome can neither be confirmed nor excluded by this examination. If there is a continued clinical concern for compartment syndrome then assessment of lower extremity compartment pressures is recommended. MRI could also be utilized in identifying areas of possible compartment syndrome in the lower extremities. Electronically signed by: Bryce Lewis On 01/06/2021 21:57:40 PM
[2021-01-06 22:00] VITALS: BP 122/67
[2021-01-07] MEDS: ONDANSETRON 4MG/2ML VIAL IV SCH ×5 (00:08→23:04)
[2021-01-07] MEDS: CEFTAROLINE FOSAMIL 200 MG in D5W 50 ML IV SCH ×2 (05:24→17:41)
[2021-01-07 06:00] VITALS: BP 119/62
[2021-01-07 07:03] LABS: HEMATOCRIT 30.6 % (42.0-52.0); MEAN CORPUSCULAR HEMOGLOBIN 30.7 pg (27.0-33.0); MEAN CORPUSCULAR HGB CONC 30.4 g/dl (32.0-36.5); PLATELET COUNT, AUTOMATED 136 10^3/uL (150-450); RED BLOOD COUNT 3.03 10^6/uL (4.30-6.10); WHITE BLOOD COUNT 5.3 10^3/uL (4.0-10.0)
[2021-01-07 07:30] LABS: ALBUMIN 2.8 GM/DL (3.2-5.2); BILIRUBIN,TOTAL 1.1 MG/DL (0.2-1.0); CREATININE FOR GFR 6.32 MG/DL (0.70-1.30); MAGNESIUM LEVEL 2.1 MG/DL (1.8-2.4); POTASSIUM SERUM 4.9 MEQ/L (3.5-5.1); TOTAL PROTEIN 7.1 GM/DL (6.4-8.2)
[2021-01-07 07:31] LABS: HEMOGLOBIN 9.3 g/dl (13.5-17.5)
[2021-01-07] MEDS: FAMOTIDINE 20 MG TAB PO SCH ×2 (08:45→21:06)
[2021-01-07] MEDS: APIXABAN 2.5 MG TAB (ELIQUIS) PO SCH ×2 (08:45→21:06)
[2021-01-07] MEDS: PRAVASTATIN 20 MG TAB PO SCH (08:45)
[2021-01-07] MEDS: FOLIC ACID 1 MG TAB PO SCH (08:45)
[2021-01-07] MEDS: CARVedilol 12.5 MG TAB PO SCH (09:00)
[2021-01-07] MEDS: METOPROLOL TART 25 MG TABLET PO SCH ×2 (09:00→21:10)
[2021-01-07] MEDS ORDERED: DARBEPOETIN 200MCG/0.4ML *DIALYSIS* SYRINGE (J0882 PER 1MCG) IV SCH (09:10)
--- NOTE | 2021-01-07 12:28 | IPN ---
PROGRESS NOTE DATE: 01/07/2021 PRIMARY CARE PROVIDER: Becki [facility]. He was admitted with presumed cellulitis of both lower legs. He is followed by the wound clinic, seen by Dr Macario, most recently 01/03/2021. He was admitted with lower extremity cellulitis from severe stasis dermatitis. He has end-stage renal disease and is on dialysis. PHYSICAL EXAMINATION: Afebrile. Vital signs stable. LUNGS: Clear. HEART: Regular rate and rhythm. Lower extremities are brawny, congested edema. Superficial venous cracks and ulcerations in the skin of the legs. They are tender to palpate. LABORATORY DATA: White count is 5.3, hemoglobin 9.3, platelets 136. Sodium 134, potassium 4.9. COVID test is negative. IMPRESSION: 1. Cellulitis of his lower legs. He is on ceftaroline, which he should continue. Consider a wound consult on Saturday. 2. End-stage renal disease, on dialysis. 3. Type 2 diabetes. Continue sliding-scale insulin with coverage. 4. Hypertension. He is on both metoprolol and carvedilol. It looks like when he was in the wound clinic a few days ago, he was taking metoprolol, and they indicate that the carvedilol had already been discontinued, so we will adjust his medications. ADDENDUM: Per nursing staff, patient is threatening to leave against medical advice. He has been appraised of the risks of this.
[2021-01-07 14:00] VITALS: BP 105/55
[2021-01-07] MEDS: MORPHINE 2 MG/ML 1ML VIAL (J2270) IV PRN (21:07)
--- NOTE | 2021-01-07 21:38 | CR ---
NEPHROLOGY CONSULTATION DATE: 01/07/2021 REQUESTING PHYSICIAN: Dr. Gil Nur. REASON FOR CONSULTATION: Management of end-stage renal disease and fluid overload. CHIEF COMPLAINT: Patient presented to the hospital yesterday with progressive lower extremity edema, leg pain and ulcers. HISTORY OF PRESENT ILLNESS: Becki Paulson is a 50-year-old male with past medical history of end-stage renal disease on hemodialysis every Saturday, Saturday and Saturday, history of hypertension, type 2 diabetes, chronic lymphedema of the bilateral lower extremities and history of bilateral lower extremity ulcers. Previously, he was following up with wound care. Chronically noncompliant with fluid restriction. Despite multiple sessions of hemodialysis and ultrafiltration, he remains above his dry weight. He was dialyzed yesterday at the dialysis center and because of the persistent lower extremity edema and pain, he was sent to the emergency room. He was found to have edema of the lower extremities and he says it has been persistent for about two weeks. He also had ulcers on the bilateral lower extremities. He reported difficulty with walking. He was admitted under the hospitalist service yesterday because of cellulitis of the bilateral lower extremities. He was started on IV ceftaroline. Nephrology service was called for further help in the management of this patient and optimization of his fluid status. I saw and evaluated the patient today morning at the bedside. He has significant lymphedema and fluid overload. I have arranged his extra session of hemodialysis to be done today. PAST MEDICAL HISTORY: 1. Hypertension. 2. End-stage renal disease on hemodialysis every Saturday, Saturday, Saturday. 3. Type 2 diabetes mellitus. 4. Chronic lymphedema. 5. Anemia of end-stage renal disease. 6. Obesity. 7. Chronic gout secondary to chronic kidney disease. PAST SURGICAL HISTORY: Status post arteriovenous (AV) fistula creation. ALLERGIES: He is allergic to VANCOMYCIN. FAMILY HISTORY: No significant family history of end-stage renal disease requiring hemodialysis. SOCIAL HISTORY: Patient lives alone. He denies any illicit drug abuse or smoking. REVIEW OF SYSTEMS: CONSTITUTIONAL: He denies any fevers or chills. EYES: He denies any blurry vision or double vision. ENT: Denies any dysphagia or odynophagia. CARDIOVASCULAR: Denies any chest pain or palpitations. RESPIRATORY: He reports shortness of breath on exertion. GASTROINTESTINAL (GI): Denies any nausea or vomiting. GENITOURINARY: He reports decreased urine output. MUSCULOSKELETAL: He reports lower extremity edema and difficulty walking. SKIN: He reports multiple ulcers on the lower extremities. PSYCHIATRIC: He denies any depression or anxiety. CENTRAL NERVOUS SYSTEM (HEATING UNIT MECHANIC): He denies any strokes or seizures. All other review of systems are negative. PHYSICAL EXAMINATION: GENERAL: Patient is awake, alert, oriented times three, sitting up in the wheelchair now. VITAL SIGNS: Temperature 97.4 degrees Fahrenheit, blood pressure 105/55, pulse 67, respiratory rate 19, saturating 91% on room air. HEAD AND NECK EXAM: Extraocular muscles intact. Pupils equally round and reactive to light. Mucous membranes are moist. Neck is supple. Mildly elevated jugular venous distention (JVD). CARDIOVASCULAR: S1, S2. There is 3+ edema of the bilateral lower extremities. RESPIRATORY: Mildly decreased breath sounds at the bases. Otherwise, no rales or rhonchi. ABDOMEN: Soft. Obese. Positive bowel sounds. Abdominal wall edema was noted. MUSCULOSKELETAL: Patient has lymphedema of the bilateral lower extremities. Chronic venous stasis changes of his legs starting from his toes all the way up to his knees. Thickened skin with chronic venous stasis changes of the lower extremities. SKIN: He has small ulcerations of the bilateral legs. Some of the ulcers are bleeding. CENTRAL NERVOUS SYSTEM (HEATING UNIT MECHANIC): No focal deficits. Power is 5/5 in all extremities. LABORATORY REVIEW: CBC showed a WBC 5.3, hemoglobin 9.3, platelets 136. BMP showed sodium 134, potassium 4.9, chloride 97, bicarbonate 29, BUN 31, creatinine 6.3. Lactic acid was 1.5 yesterday. Total bilirubin 1.1, albumin 2.8. MICROBIOLOGY: Blood cultures are negative so far. One out of two wound cultures are negative so far. IMAGING DATA: A CT scan of the legs was done which showed diffuse circumferential soft tissue edema bilaterally. No fluid collections to suggest abscess or hematoma. Bilateral lower extremity arterial study was done which showed diffuse swelling of the tissues. CURRENT INPATIENT MEDICATIONS: Patient medications were all reviewed by myself. He is currently on: - ceftaroline 200 mg IV every 12 hours - Eliquis 2.5 mg by mouth twice a day - He was on Coreg 12.5 mg by mouth twice a day, which has been stopped. - Aranesp 200 mcg IV with hemodialysis - Pepcid 20 mg by mouth twice a day - folic acid 1 mg by mouth daily - metoprolol 25 mg by mouth twice a day - Zofran as needed - pravastatin 20 mg by mouth daily ASSESSMENT AND PLAN: 1. End-stage renal disease. Patient is hemodialysis dependent. He is always above his dry weight. He can gain significant amount of weight between his dialysis sessions. I am doing an extra session of hemodialysis today and I will try to remove at least 4 kg of fluid as tolerated by his blood pressure. 2. Worsening lymphedema of the lower extremities. It is secondary to fluid overload. As mentioned above, extra session of hemodialysis is being done today. Medical team has already stopped his Coreg and he has been started on metoprolol. 3. Hypertension. Blood pressure is controlled with current regimen, but because of his lymphedema, his Coreg is being stopped and I agree with that. Continue metoprolol at this time. If needed, he can be started on COLLEEN inhibitors as well. 4. Anemia of end-stage renal disease. Hemoglobin level is 9.3. He has been started on Aranesp with dialysis. 5. Atrial fibrillation. Patient is anticoagulated with Eliquis 2.5 mg by mouth twice a day. I am going to change the dose to 5 mg by mouth twice a day. Continue metoprolol. Heart rate is controlled. 6. Cellulitis and lymphedema of the bilateral lower extremities. Patient is noncompliant with fluid restriction. Continue ceftaroline at this time. Continue [id number] sessions of hemodialysis and ultrafiltration. Thank you for involving me in the care of this patient. I shall be happy to follow the patient along with you tomorrow morning.
[2021-01-07 22:00] VITALS: BP 119/58
[2021-01-07] MEDS: ACETAMINOPHEN TAB 650MG DOSE (2X325MG) PO PRN (22:14)
[2021-01-07] MEDS: traMADol 50 MG TAB PO PRN (23:05)
[2021-01-08] MEDS: MORPHINE 2 MG/ML 1ML VIAL (J2270) IV PRN ×2 (02:53→23:28)
[2021-01-08] MEDS: ONDANSETRON 4MG/2ML VIAL IV SCH ×4 (05:30→23:28)
[2021-01-08] MEDS: CEFTAROLINE FOSAMIL 200 MG in D5W 50 ML IV SCH ×2 (05:30→18:20)
[2021-01-08] MEDS: traMADol 50 MG TAB PO PRN ×2 (05:31→20:57)
[2021-01-08 06:00] VITALS: BP 118/60
[2021-01-08 07:26] LABS: HEMATOCRIT 33.6 % (42.0-52.0); HEMOGLOBIN 9.9 g/dl (13.5-17.5); MEAN CORPUSCULAR HEMOGLOBIN 30.1 pg (27.0-33.0); MEAN CORPUSCULAR HGB CONC 29.5 g/dl (32.0-36.5); MEAN CORPUSCULAR VOLUME 102.1 fl (80.0-96.0); PLATELET COUNT, AUTOMATED 147 10^3/uL (150-450); RED BLOOD COUNT 3.29 10^6/uL (4.30-6.10); WHITE BLOOD COUNT 5.3 10^3/uL (4.0-10.0)
[2021-01-08 07:54] LABS: ALBUMIN 2.9 GM/DL (3.2-5.2); CALCIUM LEVEL 9.7 MG/DL (8.5-10.1); CREATININE FOR GFR 5.48 MG/DL (0.70-1.30); GLOMERULAR FILTRATION RATE 11.7 (>56); PHOSPHORUS LEVEL 6.7 MG/DL (2.5-4.9); POTASSIUM SERUM 4.4 MEQ/L (3.5-5.1)
[2021-01-08] MEDS: CINACALCET 30 MG TAB (SENSIPAR) PO SCH (09:00)
[2021-01-08] MEDS: FAMOTIDINE 20 MG TAB PO SCH ×2 (09:02→20:55)
[2021-01-08] MEDS: PRAVASTATIN 20 MG TAB PO SCH (09:02)
[2021-01-08] MEDS: APIXABAN 2.5 MG TAB (ELIQUIS) PO SCH (09:02)
[2021-01-08] MEDS: METOPROLOL TART 25 MG TABLET PO SCH ×2 (09:02→20:55)
[2021-01-08] MEDS: FOLIC ACID 1 MG TAB PO SCH (09:02)
[2021-01-08] MEDS ORDERED: LIDOCAINE 1% SDV 5ML VIAL SC PRN (12:00)
[2021-01-08] MEDS: (RENVELA) SEVELAMER **CARBONate** 800 MG TAB PO SCH ×2 (12:05→18:19)
--- NOTE | 2021-01-08 13:49 | IPN ---
PROGRESS NOTE DATE: 01/08/2021 Becki is [facility]. He was uncooperative with the history and physical today. He did not sign out against medical advice (AMA) yesterday. He did consent that I could look at his legs. PHYSICAL EXAMINATION: Afebrile. Vital signs stable. LUNGS: Clear. HEART: Regular rate and rhythm. ABDOMEN: Soft, nontender. His legs are unchanged from yesterday. There is purulent drainage from open wounds on both lower legs. LABORATORY DATA: White count 5.3, hemoglobin 9.9. Potassium 4.4. IMPRESSION: 1. Cellulitis, bilateral lower extremities. We will get an advanced wound care consult tomorrow. Dr. Macario sees him as an outpatient. Can use ceftaroline. 2. End-stage renal disease. Continue dialysis. 3. Diabetes. Continue sliding-scale insulin coverage. 4. Hypertension. Blood pressure is well controlled. ADDENDUM: Patient had an orthopedic consult on admission. I do not think he needs that. There is nothing orthopedic going on here. I spoke with Dr. Solis yesterday and canceled the consultation.
[2021-01-08 14:00] VITALS: BP 127/67
--- NOTE | 2021-01-08 17:51 | CR ---
CONSULTATION DATE: 01/06/2021 CHIEF COMPLAINT: Bilateral leg pain and swelling. HISTORY OF PRESENT ILLNESS: This is a 50-year-old male who was seen today on the [facility] for [facility] at the request of Dr. Zuleta, as well as the Hospitalist service. The patient has chronic lower extremity lymphedema and had been having two weeks of increasing bilateral leg pain, more prominently on the left. He was admitted presumably for left leg cellulitis and consult of me to rule out compartment syndrome. The patient, upon my own questioning, does not state that the pain is any worse over a specific time period other than two weeks. The pain is mostly in the left leg. He also has pain in the feet. The patient denies fever, chills, nausea, vomiting, diarrhea. PAST MEDICAL HISTORY: 1. Hypertension. 2. Diabetes. 3. End stage renal disease on dialysis. 4. Elevated cholesterol. 5. Iron deficiency anemia. 6. Chronic obstructive pulmonary disease. 7. Obesity. 8. Gout. 9. ESRD. 10. Chronic lymphedema. MEDICATIONS: 1. Eliquis. 2. Carvedilol. 3. Famotidine. 4. Folic acid. 5. Pravastatin. ALLERGIES: VANCOMYCIN. SOCIAL HISTORY: He denies drug use. For the rest of the full past medical history, please see the Hospitalist's notes. PHYSICAL EXAMINATION: Vital signs show respiratory rate 24 on room air, 122/67, pulse rate 93. Temperature 101 and 102 this evening. He has extreme lymphedema in both of his legs. There is [id number] redness and warmth above the left lateral calf. Compartments are soft. No pain with passive stretch of the feet or ankles. No pain at the knee. Only pain at the feet with foot and ankle range of motion testing. Feet are warm. Feet are well perfused. Pulses are very difficult. He is able to wiggle his toes and dorsiflex and plantarflex his feet. LABORATORY: White blood cell count 8.3. ESR 70. CRP 4.76. IMAGING STUDIES: There is an extremity arterial study that is not yet been interpreted. There is also extremity CT read by the radiologist. I agree with the report, diffuse circumferential soft tissue edema bilaterally. No focal fluid collections to suggest abscess or hematoma. No evidence of osteomyelitis. There has also been a vascular ultrasound that shows negative bilateral lower extremity DVT ultrasound, no evidence of DVT. ASSESSMENT AND PLAN: This 50-year-old man who appears to have left lower extremity cellulitis without obvious evidence of compartment syndrome signs or symptoms, despite the pain. I suggest antibiotic management for cellulitis and monitoring for now of his pain narcotic requirements, as well as lower extremity vascular status. For now, no role for compartment pressure monitoring or fasciotomies.
[2021-01-08] MEDS: APIXABAN 5 MG TAB (ELIQUIS) PO SCH (20:54)
[2021-01-08 22:00] VITALS: BP 123/65
[2021-01-09] MEDS: CEFTAROLINE FOSAMIL 200 MG in D5W 50 ML IV SCH ×2 (05:29→18:10)
[2021-01-09] MEDS: ONDANSETRON 4MG/2ML VIAL IV SCH ×3 (05:29→18:09)
[2021-01-09] MEDS: FOLIC ACID 1 MG TAB PO SCH (05:29)
[2021-01-09] MEDS: FAMOTIDINE 20 MG TAB PO SCH ×2 (05:30→20:56)
[2021-01-09] MEDS: APIXABAN 5 MG TAB (ELIQUIS) PO SCH ×2 (05:31→20:56)
[2021-01-09] MEDS: PRAVASTATIN 20 MG TAB PO SCH (05:31)
[2021-01-09] MEDS: METOPROLOL TART 25 MG TABLET PO SCH ×2 (05:32→21:00)
[2021-01-09] MEDS: traMADol 50 MG TAB PO PRN ×2 (05:33→20:56)
[2021-01-09 06:00] VITALS: BP 118/65
[2021-01-09 06:53] LABS: HEMATOCRIT 33.7 % (42.0-52.0); MEAN CORPUSCULAR HEMOGLOBIN 30.7 pg (27.0-33.0); MEAN CORPUSCULAR HGB CONC 29.7 g/dl (32.0-36.5); MEAN CORPUSCULAR VOLUME 103.4 fl (80.0-96.0); PLATELET COUNT, AUTOMATED 150 10^3/uL (150-450); RED BLOOD COUNT 3.26 10^6/uL (4.30-6.10); WHITE BLOOD COUNT 4.4 10^3/uL (4.0-10.0)
[2021-01-09 07:14] LABS: CALCIUM LEVEL 9.8 MG/DL (8.5-10.1); CREATININE FOR GFR 7.7 MG/DL (0.70-1.30); GLOMERULAR FILTRATION RATE 7.9 (>56); PHOSPHORUS LEVEL 7.8 MG/DL (2.5-4.9); POTASSIUM SERUM 4.9 MEQ/L (3.5-5.1)
[2021-01-09] MEDS: (RENVELA) SEVELAMER **CARBONate** 800 MG TAB PO SCH ×3 (08:00→18:09)
[2021-01-09] MEDS: CINACALCET 30 MG TAB (SENSIPAR) PO SCH (08:54)
--- NOTE | 2021-01-09 09:34 | IPN ---
NEPHROLOGY PROGRESS NOTE DATE: 01/08/2021 SUBJECTIVE: Patent was seen and examined at the bedside today morning. He is afebrile, hemodynamically stable. He was dialyzed yesterday; 4 kg of fluid was removed, which he tolerated well. He continues to be on intravenous (IV) antibiotics and reports that leg ulcers are getting better. OBJECTIVE: VITAL SIGNS: Temperature 96.9 degrees Fahrenheit, blood [id number]/67, pulse 67, respiratory rate 18, saturating 97% on room air. INTAKE AND OUTPUT: There is no urine output recorded. Ultrafiltration was 4 liters yesterday. Weight in the bed scale is not available. PHYSICAL EXAMINATION: GENERAL: Patient is awake, alert, oriented times three, laying in bed, in no apparent distress. HEAD AND NECK EXAM: Extraocular muscles intact. Pupils equally round and reactive to light. Mucous membranes are moist. Neck is supple. There is elevated jugular venous distention (JVD) and EJ is also dilated. CARDIOVASCULAR: S1, S2. There is 3+ edema of the bilateral lower extremities. RESPIRATORY: Mildly decreased breath sounds at the bases. ABDOMEN: Soft. Obese. Positive bowel sounds. Abdominal wall edema was noted.. MUSCULOSKELETAL: Patient has chronic lymphedema starting from his toes all the way up to his thighs. SKIN: He has multiple small ulcerations of the lower extremities. CENTRAL NERVOUS SYSTEM (OFFICE EXECUTIVE): No focal deficits. Power is 5/5 in all extremities. LABORATORY REVIEW: CBC showed a WBC 5.3, hemoglobin 9.9, platelets 147. BMP showed sodium 138, potassium 4.4, chloride 100, bicarbonate 31, BUN 28, creatinine 5.4, calcium 9.7, phosphorus 6.7. Albumin is 2.9. CURRENT INPATIENT MEDICATIONS: Patient's medications were all reviewed by myself. His Coreg was stopped yesterday. He is currently on metoprolol. He has also been started on Renvela 1.6 grams with meals and I have also started the patient on Sensipar 30 mg by mouth daily. He continues to be on intravenous (IV) ceftaroline. ASSESSMENT AND PLAN: 1. End-stage renal disease. Patient's regular dialysis days are Saturday, Saturday and Saturday. He will be dialyzed tomorrow morning as per his regular schedule. Ultrafiltration goal will be at least 4.5 to 5 kg as tolerated by his blood pressure. 2. Persistent lymphedema of the lower extremities and lower extremity ulcers. Patient is noncompliant with fluid restriction. He is being placed on fluid restriction. Daily [id number] ultrafiltration and hemodialysis will be done. There is time available on the schedule. Coreg was stopped and he is currently on metoprolol. 3. Hypertension in end-stage renal disease. Continue metoprolol. Optimize fluid status. Blood pressure is acceptable. 4. Anemia in end-stage renal disease. Continue Aranesp with dialysis. 5. Chronic kidney disease/mineral bone disease. Patient has persistent hyperphosphatemia. He is noncompliant with binders as outpatient. I have started him on Renvela with meals over here. 6. Secondary hyperparathyroidism. Patient gets Parsabiv injections at dialysis center. While he is here, since Parsabiv is not available, he has been started on Sensipar 30 mg by mouth daily. 7. Cellulitis of the bilateral lower extremities. Patient is on ceftaroline. Erythema and pain is getting better. Volume is being optimized with dialysis. 8. Atrial fibrillation. Increase Eliquis dose to 5 mg by mouth twice a day.
[2021-01-09 09:43] LABS: PTH INTACT 45.3 PG/ML (18.5-88.0)
--- NOTE | 2021-01-09 10:32 | IPN ---
PROGRESS NOTE DATE: 01/09/2021 SUBJECTIVE: Becki is seen [facility], no change in his lower extremity cellulitis, waiting for advanced wound care evaluation which I think is scheduled for today or tomorrow. OBJECTIVE: VITAL SIGNS: Afebrile. Vital signs are stable. LUNGS: Clear. HEART: Regular rate and rhythm. ABDOMEN: Obese, nontender. EXTREMITIES: Unchanged, erythematous with a dusky venous stasis. Purulence coming from cracks in the skin. LABORATORY DATA: White count 4.4, hemoglobin 10, platelets 150,000, potassium is 4.9, creatinine is 7.7. Blood sugar was 83. Wound culture grew out polymicrobial findings. IMPRESSION: 1. Cellulitis of lower extremities from persistent lymphedema. He has advanced wound care consult pending. He is noncompliant with fluid restriction. He is on IV Ceftaroline. 2. Endstage renal disease. Dialysis today. Trying to get 4.5 to 5 kg ultrafiltration goal per session. 3. Hypertension. Blood pressure is well-controlled. 4. Atrial fibrillation. He is on Eliquis for thromboembolic prophylaxis and metoprolol for rate control. 5. Hyperlipidemia, continue his pravastatin 80 mg daily.
[2021-01-09] MEDS: SUCROFERRIC OXYHYDROXIDE 500MG CHEW TAB (VELPHORO) PO SCH ×2 (12:30→18:00)
--- NOTE | 2021-01-09 13:37 | IPN ---
INPATIENT PROGRESS NOTE DATE: 01/09/2021 SUBJECTIVE: Mr. Paulson was seen and examined in the Hemodialysis Unit this morning receiving a treatment. He reports he feels nauseous and complains of poor appetite. He otherwise denies any complaints. We are trying to remove 4 liters with his treatment today. PHYSICAL EXAMINATION: Vital signs: Temperature 97.4, pulse 65, respiratory rate 18, blood pressure 118/65, saturating 97% on room air. Weight on the bed scale today is 117 mg. General: Patient is seen sitting in a chair in the Dialysis Unit receiving his history, awake, alert, oriented, depressed appearing, but in no acute distress. HEENT: Extraocular muscles are intact. Poor eye contact. Tongue is moist. Neck: Supple. Jugular veins are not elevated while he was sitting upright. Heart: Sounds are regular S1 and S2. Lungs: Clear to auscultation bilaterally, no crackle or rale. Abdomen: Soft, obese and nontender. Extremities: There is a left upper extremity fistula which is currently in use. His lower extremities show 3+ chronic edema with thickened, hardened skin and dressings. His dressings were not removed. There is a lymphedema appearance to the legs that goes up to the mid-thigh. Neurologic: He is oriented times 3, at baseline mentation. Psychiatric: He appears depressed. LABORATORY DATA: Today's labs: White count 4.4, hemoglobin 10, Sodium 136, potassium 4.9, phosphorus 7.8. Wound cultures are reviewed with multiple species from both the right leg and the left leg. INPATIENT MEDICATIONS: Reviewed by myself. I note his Eliquis dose was increased to 5 mg by mouth twice daily and I am going to adjust his binders in view of persistent hyperphosphatemia. His remainder of medications are unchanged as compared to yesterday. PROBLEMS/PLAN: 1. End-stage renal disease: On hemodialysis on a Saturday, Saturday, Saturday schedule. Patient had a treatment on Saturday with 4 liters of fluid removed and he is being dialyzed again today with at least 4 liters of fluid to be removed. He is chronically volume overloaded and chronically noncompliant with fluid restriction and dietary restriction in the outpatient setting. 2. Long standing lymphedema of the lower extremities with chronic lower extremity ulcerations: Patient is notoriously noncompliant with fluid restriction and persistently in fluid overload. He was dialyzed Saturday with 4 liters removed. He is being dialyzed again today with 4 liters removed and I will try to arrange for an extra dialysis treatment whenever time allows on the dialysis schedule. I do not see any echocardiogram in the system since 2015 and echocardiogram is ordered. Cultures from the leg wounds showed polymicrobial result and a wound care consult is pending and he is on I.V. ceftaroline managed by primary service. 3. Atrial fibrillation: He is on Eliquis anticoagulation and rate controlled with metoprolol. 4. Secondary hyperparathyroidism of renal origin: He is persistently hyperphosphatemic and he is on sevelamer and I have added Velphoro. His parathyroid hormone level has been well controlled with Parsabiv in the outpatient setting and presently receiving Sensipar. 5. Anemia of chronic renal failure: Hemoglobin is at goal and he continues on Aranesp. MTDD
[2021-01-09 14:00] VITALS: BP 92/56
[2021-01-09 22:00] VITALS: BP 95/56
[2021-01-09] MEDS: MORPHINE 2 MG/ML 1ML VIAL (J2270) IV PRN (22:08)
[2021-01-10] MEDS: ONDANSETRON 4MG/2ML VIAL IV SCH ×3 (00:20→12:43)
[2021-01-10] MEDS: CEFTAROLINE FOSAMIL 200 MG in D5W 50 ML IV SCH (05:21)
[2021-01-10] MEDS: traMADol 50 MG TAB PO PRN (05:22)
[2021-01-10 06:00] VITALS: BP 97/58
[2021-01-10 06:16] LABS: HEMATOCRIT 33.1 % (42.0-52.0); HEMOGLOBIN 9.8 g/dl (13.5-17.5); MEAN CORPUSCULAR HEMOGLOBIN 30.2 pg (27.0-33.0); MEAN CORPUSCULAR HGB CONC 29.6 g/dl (32.0-36.5); MEAN CORPUSCULAR VOLUME 102.2 fl (80.0-96.0); PLATELET COUNT, AUTOMATED 150 10^3/uL (150-450); RED BLOOD COUNT 3.24 10^6/uL (4.30-6.10)
[2021-01-10 06:43] LABS: CALCIUM LEVEL 9.4 MG/DL (8.5-10.1); CREATININE FOR GFR 5.96 MG/DL (0.70-1.30); GLOMERULAR FILTRATION RATE 10.6 (>56); PHOSPHORUS LEVEL 6.4 MG/DL (2.5-4.9); POTASSIUM SERUM 4.8 MEQ/L (3.5-5.1)
[2021-01-10] MEDS: SUCROFERRIC OXYHYDROXIDE 500MG CHEW TAB (VELPHORO) PO SCH ×2 (08:00→12:30)
[2021-01-10] MEDS: PRAVASTATIN 20 MG TAB PO SCH (09:15)
[2021-01-10] MEDS: (RENVELA) SEVELAMER **CARBONate** 800 MG TAB PO SCH ×2 (09:15→12:43)
[2021-01-10] MEDS: FOLIC ACID 1 MG TAB PO SCH (09:16)
[2021-01-10] MEDS: APIXABAN 5 MG TAB (ELIQUIS) PO SCH (09:16)
[2021-01-10] MEDS: FAMOTIDINE 20 MG TAB PO SCH (09:17)
[2021-01-10] MEDS: CINACALCET 30 MG TAB (SENSIPAR) PO SCH ×2 (09:17→09:21)
[2021-01-10 09:38] VITALS: BP 115/64
[2021-01-10] MEDS: METOPROLOL TART 25 MG TABLET PO SCH (09:38)
--- NOTE | 2021-01-10 10:26 | IPNPDOC ---
Text Note Date of Service The patient was seen on 01/10/21. VS,Judit, I+O VS, Tylore, I+O Laboratory Tests 01/10/21 05:50 Vital Signs Date Time Temp Pulse Resp B/P (MAP) Pulse Ox O2 Delivery O2 Flow Rate FiO2 01/10/21 09:38 80 115/64 01/10/21 06:00 18 01/10/21 06:00 98.0 97 Room Air l I&O- Last 24 Hours up to 6 AM 01/10/21 06:00 Intake Total 540 ml Output Total 4500 ml Balance -3960 ml KEVIN SEXTON MD Jan 10, 2021 10:26
[2021-01-10] MEDS ORDERED: LEVO750T13 PO (12:36)
[2021-01-10] MEDS ORDERED: METO1TAB87 PO (12:36)
--- NOTE | 2021-01-10 12:43 | DS.PDOC ---
Discharge Summary General Date of Admission Jan 06, 2021 at 14:35 Date of Discharge 01/10/2021 Discharge Summary PROCEDURES PERFORMED DURING STAY: [None]. ADMITTING DIAGNOSES / DISCHARGE DIAGNOSES: Drainage of left lower leg - likely 2/2 chronic venous stasis and chronic lymphedema; less likely 2/2 cellulitis ESRD on HD DM2 HTN DLP Chronic Atrial fibrillation GERD DVT prophylaxis COMPLICATIONS/CHIEF COMPLAINT: Drainage of Legs HISTORY OF PRESENT ILLNESS: Patient is a 50-year-old male with a PMHx of A.fib (on Eliquis), HTN, DM2, ESRD on HD, Chronic lymphedema, who presented to the emergency room with redness of both his legs and an area on his lower left leg with drainage. Patient was admitted to the hospital service for further evaluation and treatment. Dr. Macario was called on consultation. Patient was seen and examined at the bedside. Patient reports that her right leg redness has improved. Still reports some pain around the foot and lower leg. Reports that left leg lateral side still has drainage. HOSPITAL COURSE: Drainage of left lower leg - likely 2/2 chronic venous stasis and chronic lymphedema; less likely 2/2 cellulitis - Patient is hemodynamically stable and afebrile - No leukocytosis; no lactic acidosis - Imaging noted above - Wound cultures 01/06: noted with significant polymicrobial growth - Blood cultures 01/06: No growth at 72 hours - Has been evaluated by Dr. Macario wound care; will continue with dressing changes as recommended - Will DC Ceftaroline (Day #4); will complete short course of Levaquin as an outpatient - Will have outpatient follow-up with primary care provider and advanced wound care within the next 7 days ESRD on HD - Nephrology on consultation DM2 - c/w ISS HTN - BP well controlled - c/w Metoprolol with hold parameters DLP - c/w Pravastatin Chronic Atrial fibrillation - c/w Rate control with metoprolol; will reduce dose - c/w full anticoagulation with Eliquis GERD - c/w Famotidine DVT prophylaxis - c/w full anticoagulation with Eliquis DISCHARGE MEDICATIONS: Please see below. ALLERGIES: Please see below. PHYSICAL EXAMINATION ON DISCHARGE: Vitals (See below) General: Sitting up at the edge of the bed, appears to be comfortable, awake, alert, oriented 3 HEENT: NC, AT CVS: +S1S2 Lungs: Fair air entry b/l, no appreciated wheezing, rhonchi or rales Abdomen: Soft, nondistended, without tenderness Extremities: Chronic lymphedema with chronic venous stasis changes, left lower leg with area of drainage noted LABORATORY DATA: Please see below. IMAGING: Duplex US 01/06: Negative bilateral lower extremity duplex venous ultrasound. No evidence of deep vein thrombosis. Extremity CT 01/06: Diffuse circumferential soft tissue edema bilaterally. No focal fluid collections to suggest abscess or hematoma. No evidence of osteomyelitis. Arterial US 01/06: Extremely limited exam secondary to diffuse lower extremity swelling and tissue edema. Lower extremity compartment syndrome can neither be confirmed nor excluded by this examination. If there is a continued clinical concern for compartment syndrome then assessment of lower extremity compartment pressures is recommended. MRI could also be utilized in identifying areas of possible compartment syndrome in the lower extremities. ACTIVITY: [As tolerated]. DISCHARGE PLAN: Follow-up with primary care provider, nephrology and advanced wound care within the next 7 days Remain compliant with treatment plan and medications Return to the ER if you experience any problems DISPOSITION: Home with services DISCHARGE CONDITION: [Stable]. TIME SPENT ON DISCHARGE: 35 minutes. Vital Signs/I&Os Vital Signs Date Time Temp Pulse Resp B/P (MAP) Pulse Ox O2 Delivery O2 Flow Rate FiO2 01/10/21 09:38 80 115/64 01/10/21 06:00 18 01/10/21 06:00 98.0 97 Room Air I&O- Last 24 Hours up to 6 AM 01/10/21 05:59 Intake Total 350 ml Output Total 4500 ml Balance -4150 ml Laboratory Data Labs 24H Laboratory Tests 2 01/09/21 13:22: Bedside Glucose (Misc Panel) 63L 01/09/21 16:49: Bedside Glucose (Misc Panel) 75 01/09/21 20:42: Bedside Glucose (Misc Panel) 93 01/10/21 05:50: Nucleated Red Blood Cells % (auto) 0.0, Anion Gap 6L, Glomerular Filtration Rate 10.6L, Calcium Level 9.4, Phosphorus Level 6.4H, Albumin 3.0L CBC/BMP Laboratory Tests 01/10/21 05:50 FSBS Laboratory Tests Test 01/09/21 13:22 01/09/21 16:49 01/09/21 20:42 Range/Units Bedside Glucose (Misc Panel) 63 75 93 70-105 MG/DL Microbiology Microbiology 01/06/21 Wound Culture - Preliminary, Resulted Enterobacter Cloacae Complex Acinetobacter Baumannii Comple Strep Agalactiae Group B Enterococcus Faecalis Staphylococcus Sp Coag Neg 01/06/21 Gram Stain - Final, Complete 01/06/21 Wound Culture - Final, Complete Enterobacter Cloacae Complex Staphylococcus Sp Coag Neg Corynebacterium Species 01/06/21 Blood Culture - Preliminary, Resulted No Growth after 72 hours. All specime... 01/06/21 Blood Culture - Preliminary, Resulted No Growth after 72 hours. All specime... Discharge Medications Scheduled Apixaban (Eliquis) 2.5 Mg Tablet, 2.5 MG PO BID, (Reported) Famotidine (Famotidine) 20 Mg Tablet, 20 MG PO BID, (Reported) Folic Acid (Folic Acid) 1 Mg Tablet, 1 MG PO DAILY, (Reported) Levofloxacin (Levofloxacin) 750 Mg Tablet, 1 TAB PO Q48H Metoprolol Tartrate (Metoprolol Tartrate) 25 Mg Tablet, 12.5 MG PO BID Pravastatin Sodium (Pravastatin Sodium) 80 Mg Tablet, 80 MG PO DAILY, (Reported) Scheduled PRN Albuterol Sulfate (Ventolin Hfa) 18 Gm Hfa.aer.ad, 2 PUFF INH Q6H PRN for SHORTNESS OF BREATH, (Reported) Hydroxyzine HCl (Hydroxyzine HCl) 25 Mg Tablet, 25 MG PO Q12H PRN for ITCHING, (Reported) Miscellaneous Medications [Patient Comment] , (Reported) MED LIST OBTAINED FROM PCP OFFICE Allergies Coded Allergies: vancomycin (Verified Adverse Reaction, Mild, ITCHING, 11/25/19) KEVIN SEXTON MD Jan 10, 2021 12:43
--- NOTE | 2021-01-10 13:14 | IPN ---
PROGRESS NOTE DATE: 01/10/2021 SUBJECTIVE: Becki is seen and examined this morning at the bedside. He reports he feels better as compared to yesterday, no longer nauseous. He is still pending advanced wound care consultation. He was dialyzed yesterday with another 4.5 liters of fluid removed and he tolerated it well. PHYSICAL EXAMINATION: VITAL SIGNS: Temperature 98.0, pulse 66, respiratory rate 18, blood pressure 97/58, saturating 97% on room air. Weight in the bed scale today is 117.4 kg. GENERAL: Patient is seen lying in bed, awake, alert, oriented and in no distress. HEENT: Extraocular muscles are intact. Tongue is moist. Neck is supple. HEART SOUNDS: Regular. S1, S2. LUNGS: Clear to auscultation bilaterally. No crackle or rale. ABDOMEN: Soft, obese and nontender. EXTREMITIES: Show left upper extremity fistula which is patent. Lower extremities show 3+ chronic edema with thickened, hardened skin and dressings with lymphedema appearance that goes to the mid thigh. NEUROLOGIC: He is oriented times three at baseline mentation. PSYCHIATRIC: He appears depressed. LABORATORY DATA: Today's labs show sodium 137, potassium 4.8, bicarbonate 33, phosphorus 6.4, albumin 3.0. Hemoglobin 9.8. INPATIENT MEDICATIONS: Reviewed by myself. His metoprolol dose was decreased to 12.5 mg by mouth twice daily. His remainder of medications are unchanged as compared to yesterday. PROBLEMS: 1. End-stage renal disease on hemodialysis on a Saturday, Saturday, Saturday schedule. We removed 4.5 liters yesterday. He tolerated fluid removal well. He is chronically volume overloaded and chronically noncompliant with fluid restriction in the outpatient setting and is usually instructed to come for extra treatments in the outpatient setting as well for management of his persistent fluid overload. I did not plan to do any extra treatment today, as his blood pressure is already soft. 2. Longstanding lymphedema of the lower extremities with chronic lower extremity ulcerations. Patient is notoriously noncompliant with fluid restriction and persistently in fluid overload. He was dialyzed yesterday with 4.5 liters of fluid removed. Extra dialysis was not arranged for today because of soft blood pressure. Systolic is in the 90s. There is no echocardiogram seen since 2016 and echocardiogram is ordered and pending. 3. Atrial fibrillation. He is on Eliquis anticoagulation. His blood pressure is soft, in the 90s. He is on metoprolol 25 mg twice a day with holding parameters and the dose has already been appropriately reduced. 4. Secondary hyperparathyroidism of renal origin. Continue Sevelamer along with Velphoro and continue with Sensipar. 5. Anemia of chronic renal failure. Hemoglobin is close to goal and he continues on Aranesp.
[2021-01-10] MEDS ORDERED: TRAM50TA2 PO (13:23)
--- NOTE | 2021-01-10 18:56 | CR ---
ADVANCED WOUND CARE CONSULTATION DATE: 01/10/2021 Telemedicine consultation. CONSULTATION REQUESTED BY: Dr. Franklin. REASON FOR CONSULTATION: Left lower extremity wound care. HISTORY OF PRESENT ILLNESS: A 40-year-old noncompliant, morbidly obese diabetic male on dialysis has been treated in our wound care center intermittently for some time for right lower extremity venous stasis ulcers associated with lymphedema. The patient is unable to sleep in a bed, unable to wear support stockings, and as a result chronic lower extremity swelling and edema has persisted, producing significant skin and underlying subcutaneous tissue changes. The end result of this is lipodermatosclerosis, thickened and indurated of the subcutaneous tissue which has produced obstruction of the lymphatic vessels. Additionally prolonged gravitational dependent edema damages the venous return and compounds the problem. The patient recently was admitted for "cellulitis of the left lower extremity." He is and has remained afebrile during his hospital course and has never had an elevated white count. Therefore, the question of cellulitis remains in doubt, as true cellulitis is bacterial spreading throughout the subcutaneous tissue underneath intact skin producing systemic reactions and responses such as fever leukocytosis and tachycardia streaking lymphangitis localized tenderness on palpation and pain involving the affected limb. Merely having erythema and drainage from a wound is not cellulitis. The point being whether or not antibiotic therapy is indicated as part of the treatment. Patient's to benefit from hospitalization in that they are cared for with dressing changes and can remain at addressed for a majority of the day which is not accomplished as an outpatient. A wound culture reflects colonized free-floating bacteria and does not account for biofilm which does not respond to antibiotic therapy. The patient has wound clusters involving the lateral aspect of his left lower extremity. Treatment for this is to clean the wounds with Vashe wound cleanser, use a moisturizer for any dry, scaly skin, apply a nonadherent foam dressing secured with a Kerlix and to utilize a TubiGrip support stocking. Patient was last seen at our clinic on 12/31/2020. When he is discharged , he can call the clinic for follow up if he so desires. The most important thing the patient has gained by his recent hospitalization is bed rest which attempts to improve his chronic, gravitational, dependent edema of his lower extremities. [facility]
[2021-01-10] MEDS ORDERED: METOPROLOL TART 12.5 MG PER 1/2 TAB PO SCH (21:00)
--- NOTE | 2021-01-11 09:44 | ECHO ---
DATE OF PROCEDURE: 01/10/2021 Age: 50 Gender: Male Height: 70 inches Weight: 257 pounds Body surface area: 2.33 m2 PATIENT LOCATION: Inpatient [address] [place] [address], room 4227. REFERRING PHYSICIAN: Jacqui Trujillo D.O. INDICATION: Edema. MEASUREMENTS: 2D Measurements: RV 5.6 cm LV 6.1 cm Septum 1.4 cm Posterior wall 1.4 cm Aortic Root 3.9 cm LA 5.2 cm LVEF 40-45% Doppler Measurements: AV 1.74 m/s LVOT 0.59 m/s Mean AV systolic gradient 7 mmHg Dimensionless index 0.39 MV unable to measure PV 0.85 m/s Pulmonary artery acceleration time 87 msec RVSP 71 mmHg IVC 2.7 cm COMMENTS: Underlying atrial fibrillation with controlled ventricular response. No intraventricular conduction disturbance. Technically challenging study in light of the patients body habitus, but diagnostically useful information was still obtained. M-mode and two-dimensional echocardiography was performed with pulse, continuous wave, color flow, and tissue Doppler studies. Mildly dilated and hypertrophied left ventricle with septal and apical marked hypo- to akinesis and mild hypokinesis of the other left ventricular wall segments. At least mild to moderate impairment of global resting systolic function. Prominently dilated left atrium. Markedly dilated right heart chambers with right ventricular free wall hypokinesis and Doppler evidence of severe pulmonary hypertension. Prominently dilated IVC with absent respiratory collapse in keeping with a markedly elevated central venous pressure/right heart failure. Aortic root diameter upper limits of normal. Moderately severe aortic valvular sclerosis with at least mild stenosis and only trace insufficiency. Fairly severe mitral annular calcification with low flow appearance to leaflet excursion, but no posterior systolic buckling. Mild-moderate ? insufficiency. Normal appearing tricuspid valve with at least moderate insufficiency. Miniscule posterior pericardial effusion measuring 2 mm. No apparent intracardiac mass. In light of his severe pulmonary hypertension and right heart failure, his prognosis is quite guarded. MTDD
== END 2021-01-10 14:59 | disposition home health service (06) | DRG 606 ==
LOC: M ED 09:43 → M ED INP 14:35 → M MSPAV 15:45
PROVIDERS: ADMIT Internal Medicine; ATTEND Internal Medicine
PROC: 5A1D70Z Performance of Urinary Filtration, Intermittent, Less than 6 Hours Per Day (ICD-10-PCS; principal; 2021-01-09)
DX: I89.0 Lymphedema, not elsewhere classified (principal); N18.6 End stage renal disease; N25.81 Secondary hyperparathyroidism of renal origin; I48.20 Chronic atrial fibrillation, unspecified; I12.0 Hypertensive chronic kidney disease with stage 5 chronic kidney disease or end stage renal disease; I87.8 Other specified disorders of veins; K21.9 Gastro-esophageal reflux disease without esophagitis; E11.9 Type 2 diabetes mellitus without complications; Z79.01 Long term (current) use of anticoagulants; Z79.899 Other long term (current) drug therapy; Z88.8 Allergy status to other drugs, medicaments and biological substances; J44.9 Chronic obstructive pulmonary disease, unspecified; E66.01 Morbid (severe) obesity due to excess calories; M10.9 Gout, unspecified; D63.1 Anemia in chronic kidney disease; E78.5 Hyperlipidemia, unspecified; Z91.19 Patient's noncompliance with other medical treatment and regimen

== ENCOUNTER 2021-01-16 12:42 | Emergency (ER) | payer MEDICARE, MEDICAID ==
[~2021-01-16 12:42] MED LIST changes: +ELIQ2.5T PO; +FAMO1TAB11 PO; +FOLI1TAB11 PO; +LEVO750T13 PO; +METO1TAB87 PO; +TRAM50TA2 PO
[2021-01-16 12:59] VITALS: BP 95/53
[2021-01-16 14:21] LABS: BASO % 0.5 % (0.0-1.0); EOS # 0.1 10^3/uL (0.0-0.5); EOS % 1.1 % (0.0-3.0); HEMATOCRIT 36.7 % (42.0-52.0); HEMOGLOBIN 11.5 g/dl (13.5-17.5); LYMPH # 0.9 10^3/uL (1.5-5.0); LYMPH % 13.9 % (24.0-44.0); MEAN CORPUSCULAR HEMOGLOBIN 31.1 pg (27.0-33.0); MEAN CORPUSCULAR HGB CONC 31.3 g/dl (32.0-36.5); MEAN CORPUSCULAR VOLUME 99.2 fl (80.0-96.0); MONO # 0.9 10^3/uL (0.0-0.8); MONO % 14.1 % (2.0-8.0); NEUTROPHILS # 4.3 10^3/uL (1.5-8.5); NEUTROPHILS % 69.9 % (36.0-66.0); PLATELET COUNT, AUTOMATED 164 10^3/uL (150-450); WHITE BLOOD COUNT 6.1 10^3/uL (4.0-10.0)
[2021-01-16] MEDS ORDERED: TRAM50TA2 PO (20:20)
== END 2021-01-16 16:28 | disposition home or self-care (01) ==
LOC: EDBD 12:42 → M ED 14:51
DX: I87.2 Venous insufficiency (chronic) (peripheral) (principal); I48.91 Unspecified atrial fibrillation; E11.9 Type 2 diabetes mellitus without complications; I10 Essential (primary) hypertension; E78.5 Hyperlipidemia, unspecified; N18.6 End stage renal disease; Z99.2 Dependence on renal dialysis; Z79.01 Long term (current) use of anticoagulants; Z79.899 Other long term (current) drug therapy; Z88.1 Allergy status to other antibiotic agents

== ENCOUNTER 2021-01-16 18:54 | Emergency (ER) | payer MEDICARE, MEDICAID ==
[2021-01-16 19:09] VITALS: BP 96/54
[2021-01-16] MEDS ORDERED: TRAM50TA2 PO (20:20)
[2021-01-16] MEDS ORDERED: traMADol 50 MG TAB (BULK 4 TAB ED) PO ONE (20:25)
== END 2021-01-16 21:00 | disposition home or self-care (01) ==
LOC: M ED 18:54
DX: I87.2 Venous insufficiency (chronic) (peripheral) (principal); I48.91 Unspecified atrial fibrillation; E11.9 Type 2 diabetes mellitus without complications; I10 Essential (primary) hypertension; E78.5 Hyperlipidemia, unspecified; N18.6 End stage renal disease; Z99.2 Dependence on renal dialysis; Z79.01 Long term (current) use of anticoagulants; Z79.899 Other long term (current) drug therapy; Z88.1 Allergy status to other antibiotic agents

== ENCOUNTER 2021-03-03 08:13 | Inpatient (IN) | payer MEDICARE, MEDICAID ==
[~2021-03-03] VITALS: Ht 177.8 cm; Wt 112.1 kg
[~2021-03-03 08:13] MED LIST changes: +LIDO1CRE42 TOP; -LIDO2.5C15 TOP
[2021-03-03] MEDS ORDERED: cefTRIAXone SOD 2 GM in D5W MINI-BAG PLUS 50 ML IV ONE (08:40)
[2021-03-03 09:08] LABS: BASO % 0.2 % (0.0-1.0); EOS # 0.1 10^3/uL (0.0-0.5); EOS % 0.4 % (0.0-3.0); HEMATOCRIT 38.9 % (42.0-52.0); HEMOGLOBIN 11.7 g/dl (13.5-17.5); LYMPH # 0.6 10^3/uL (1.5-5.0); LYMPH % 5.1 % (24.0-44.0); MEAN CORPUSCULAR HEMOGLOBIN 30.6 pg (27.0-33.0); MEAN CORPUSCULAR HGB CONC 30.1 g/dl (32.0-36.5); MEAN CORPUSCULAR VOLUME 101.8 fl (80.0-96.0); MONO # 0.5 10^3/uL (0.0-0.8); MONO % 4.4 % (2.0-8.0); NEUTROPHILS # 10.2 10^3/uL (1.5-8.5); NEUTROPHILS % 89.2 % (36.0-66.0); PLATELET COUNT, AUTOMATED 138 10^3/uL (150-450); RED BLOOD COUNT 3.82 10^6/uL (4.30-6.10); WHITE BLOOD COUNT 11.4 10^3/uL (4.0-10.0)
[2021-03-03 09:23] LABS: INR 1.27; PROTHROMBIN TIME 16.2 SECONDS (12.5-14.3)
[2021-03-03 09:25] LABS: PARTIAL THROMBOPLASTIN TIME 90.3 SECONDS (24.2-38.5)
[2021-03-03 09:33] LABS: ERYTHROCYTE SEDIMENTATION RATE 54 mm/hr (0-20)
[2021-03-03 09:37] LABS: C REACTIVE PROTEIN QUANTITATIV 8.34 MG/DL (0.00-0.30); CALCIUM LEVEL 9.6 MG/DL (8.5-10.1); CREATININE FOR GFR 6.2 MG/DL (0.70-1.30); GLOMERULAR FILTRATION RATE 10.2 (>56); POTASSIUM SERUM 4.6 MEQ/L (3.5-5.1)
[2021-03-03 09:38] LABS: ALBUMIN 3.2 GM/DL (3.2-5.2); BILIRUBIN,DIRECT 0.5 MG/DL (0.0-0.2); TOTAL PROTEIN 7.7 GM/DL (6.4-8.2)
--- NOTE | 2021-03-03 10:43 | REP ---
INDICATION: swelling. COMPARISON: None. TECHNIQUE: Multiple ultrasonographic images of the deep venous structures of the bilateral thigh were obtained from the common femoral vein to the popliteal vein along with Doppler interrogation and color flow Doppler images. FINDINGS: There is no abnormal echogenic material seen within any of the visualized deep venous structures that would suggest acute thrombosis. Coaptation is unremarkable throughout. Doppler interrogation shows an expected response to respiratory variability and augmentation. The color flow images show what appears to be a normal vascular pattern throughout. IMPRESSION: There is no ultrasonographic evidence of deep venous thrombosis involving any of the visualized deep venous structures of the bilateral thigh, as described above. <Electronically signed by Villa Chaparro > 03/03/21 [id number]
[2021-03-03] MEDS ORDERED: ALBUTEROL 90 MCG/ACT 8GM HFA INHALER INH PRN (10:45)
[2021-03-03] MEDS ORDERED: METOPROLOL TART 12.5 MG PER 1/2 TAB PO SCH (10:45)
[2021-03-03] MEDS: traMADol 50 MG TAB PO PRN ×2 (11:00→20:46)
[2021-03-03] MEDS ORDERED: HYDROMORPHONE HCL 0.5 MG/ 0.5 ML SYRINGE (J1170 PER 1) IV ONE (11:15)
--- NOTE | 2021-03-03 11:38 | HPEPDOC ---
[facility] Medical History & Physical Date of Admission March 03, 2021 Date of Service: March 03, 2021 History and Physical CHIEF COMPLAINT: Left leg redness, swelling and pain for the past 3 days HISTORY OF PRESENT ILLNESS: 50-year-old male with past medical history significant for End-stage renal disease on maintenance dialysis Saturday, Saturday, Saturday, type 2 diabetes, hypertension, chronic lymphedema, venous insufficiency, anemia due to end-stage renal failure, obesity, chronic gout due to chronic kidney disease, left lower extremity cellulitis with recent admission for left lower extremity cellulitis at [facility] treated with iv ceftaroline and eventually discharged home. Presents again today with complaints of worsening pain, swelling, redness of the left lower extremity for the past 2-3 days, worse over the past 24 hours without fever but with complains of chills . He has noted increasing and serous drainage without any purulence, but has noted is a "lump" on the left leg which has increased. Patient took tramadol without improvement and presented to the ER for further evaluation. Patient had limitations of act ivities of daily living due to severe pain and increased seepage of white serous material from the left leg despite elevation on pillows at home. In the emergency room patient was found to have worsening erythema, edema of the left lower extremity greater than the right with an indurated and elevated area measuring about 3 cm in diameter on the left lateral side of the leg white count was 11.4. He was afebrile. Sedimentation rate was 54 with CRP at of 8.3. He was given IV ceftriaxone and hospitalist was called to admit the patient for left lower extremity cellulitis in the setting of chronic lymphedema usually managed by advanced physician specialist, Dr. Kelvin Macario. PAST MEDICAL HISTORY: End-stage renal disease on maintenance dialysis Saturday, Saturday, Saturday, type 2 diabetes, hypertension, chronic lymphedema, venous insufficiency, anemia due to end-stage renal failure, obesity, chronic gout due to chronic kidney disease, left lower extremity cellulitis PAST SURGICAL HISTORY: Left wrist Arteriovenous fistula formation SOCIAL HISTORY: Denies smoking, alcohol, recreational drug use FAMILY HISTORY: Mother with heart, lung disease, hypertension, diabetes. Father , hypertension, heart disease, diabetes ALLERGIES: Please see below. REVIEW OF SYSTEMS: 10 point review of systems negative aside from positive findings in HPI HOME MEDICATIONS: Please see below. PHYSICAL EXAMINATION: VITAL SIGNS: See below GENERAL APPEARANCE: Awake, alert, oriented times ransom questions appropriately, no distress, pallor, icterus, jaundice, or use of respiratory accessory muscles HEENT: Extraocular muscles intact. No JVD, no thyromegaly or cervical lymphadenopathy CARDIOVASCULAR: S1, S2, regular rate, rhythm 3+ pitting edema bilateral lower extremities. Chronic venous insufficiency and chronic lymphedema. No carotid bruits noted LUNGS: Air entry is equal bilaterally. No kyphosis or scoliosis Decreased breath sounds. No rales or rhonchi ABDOMEN: Obese, soft, nontender, nondistended, positive bowel sounds 4 quadrants. Abdominal edema. EXTREMITIES: Chronic lymphedema, left lower extremity more erythematous than the right, 3+ edema bilaterally. Chronic venous stasis changes LABORATORY DATA: See below. IMAGING: See below MICROBIOLOGY: Please see below. ASSESSMENT: 50-year-old male with past medical history significant for End-stage renal disease on maintenance dialysis Saturday, Saturday, Saturday, type 2 diabetes, hypertension, chronic lymphedema, venous insufficiency, anemia due to end-stage renal failure, obesity, chronic gout due to chronic kidney disease, left lower extremity cellulitis with recent admission for left lower extremity cellulitis a t [facility] treated with iv ceftaroline and eventually discharged home. Presents again today with complaints of worsening pain, swelling, redness of the left lower extremity for the past 2-3 days, worse over the past 24 hours without fever but with complains of chills . He has noted increasing and serous drainage without any purulence, but has noted is a "lump" on the left leg which has increased. Patient took tramadol without improvement and presented to the ER for further evaluation. Patient had limitations of activities of daily living due to severe pain and increased seepage of white serous material from the left leg despite elevation on pillows at home. In the emergency room patient was found to have worsening erythema, edema of the left lower extremity greater than the right with an indurated and elevated area measuring about 3 cm in diameter on the left lateral side of the leg white count was 11.4. He was afebrile. Sedimentation rate was 54 with CRP at of 8.3. He was given IV ceftriaxone and hospitalist was called to admit the patient for left lower extremity cellulitis in the setting of chronic lymphedema usually managed by advanced physician specialist, Dr. Kelvin Macario. Impression left lower extremity cellulitis chronic lymphedema with /chronic venous insufficiency End-stage renal disease on maintenance dialysis on Saturday, Saturday, Saturday Hypertension Type 2 diabetes Obesity COPD Anemia of chronic disease due to end-stage renal failure Gout secondary to end-stage renal failure Hypercholesterolemia Iron deficiency anemia Chronic atrial fibrillation PLAN: Patient will be admitted as an inpatient for tube midnights for treatment of his left lower extremity cellulitis in the setting of chronic venous insufficiency and chronic lymphedema. Dr. Brandon main advanced physician specialist will be consulted for wound care recommendations via telemetry medicine. Patient will be given intravenous ceftriaxone 2 g IV to be adjusted recently if needed for [address] Trujillo will be consulted regarding maintenance dialysis needs. He'll be kept on his home medications for hypertension with holding parameters in case systolic pressure is less than 100 mmHg, consistent carbohydrate renal diet with fingerstick. before meals at bedtime with sliding scale coverage per [facility] protocol. Patient will be resumed back on his bronchodilators when necessary. us b/l le to rule out dvt. ct tib fib left r/o early abscess which may require incision and drainage. He appears to be rate controlled and will be continued on his home medications as well as his anticoagulation. Anticipated need for inpatient care would be 3-4 days. Vital Signs Vital Signs Date Time Temp Pulse Resp B/P (MAP) Pulse Ox O2 Delivery O2 Flow Rate FiO2 03/03/21 09:31 107/52 (70) 03/03/21 09:28 86 98 03/03/21 08:27 97.9 Laboratory Data Labs 24H Laboratory Tests 2 03/03/21 08:44: Immature Granulocyte % (Auto) 0.7, Neutrophils (%) (Auto) 89.2H, Lymphocytes (%) (Auto) 5.1L, Monocytes (%) (Auto) 4.4, Eosinophils (%) (Auto) 0.4, Basophils (%) (Auto) 0.2, Neutrophils # (Auto) 10.2H, Lymphocytes # (Auto) 0.6L, Monocytes # (Auto) 0.5, Eosinophils # (Auto) 0.1, Basophils # (Auto) 0.0, Nucleated Red Blood Cells % (auto) 0.0, Erythrocyte Sedimentation Rate 54H, Anion Gap 9, Glomerular Filtration Rate 10.2L, Lactic Acid Level 1.7, Calcium Level 9.6, To geoffrey Bilirubin 1.0, Direct Bilirubin 0.5H, Aspartate Amino Transf (AST/SGOT) 19, Alanine Aminotransferase (ALT/SGPT) 36, Alkaline Phosphatase 180H, C-Reactive Protein, Quantitative 8.34H, Total Protein 7.7, Albumin 3.2, Albumin/Globulin Ratio 0.7 03/03/21 09:03: Prothrombin Time 16.2H, Prothromb Time International Ratio 1.27, Activated Partial Thromboplast Time 90.3H CBC/BMP Laboratory Tests 03/03/21 08:44 Microbiology Microbiology 03/03/21 Blood Culture, Received Pending 03/03/21 Blood Culture, Received Pending Home Medications Scheduled Apixaban (Eliquis) 2.5 Mg Tablet, 2.5 MG PO BID Famotidine (Famotidine) 20 Mg Tablet, 20 MG PO BID Folic Acid (Folic Acid) 1 Mg Tablet, 1 MG PO DAILY Metoprolol Tartrate (Metoprolol Tartrate) 25 Mg Tablet, 12.5 MG PO BID Pravastatin Sodium (Pravastatin Sodium) 80 Mg Tablet, 80 MG PO DAILY Scheduled PRN Albuterol Sulfate (Ventolin Hfa) 18 Gm Hfa.aer.ad, 2 PUFF INH Q6H PRN for SHORTNESS OF BREATH Hydroxyzine HCl (Hydroxyzine HCl) 25 Mg Tablet, 25 MG PO Q12H PRN for ITCHING Tramadol HCl (Tramadol HCl) 50 Mg Tablet, 50 MG PO Q8H PRN for MILD/MODERATE PAIN (PS 1-7) Tramadol HCl (Tramadol HCl) 50 Mg Tablet, 1 TAB PO TIDP PRN for pain Miscellaneous Medications [Patient Comment] MED LIST OBTAINED FROM PCP OFFICE Allergies Coded Allergies: vancomycin (Verified Adverse Reaction, Mild, ITCHING, 11/25/19) A-FIB/CHADSVASC A-FIB History Current/History of A-Fib/PAF?: No Current PO Anticoag Therapy: Yes Age/Risk Factor Scoring CHADSVASC: CHADSVASC Response (Comments) Value Age Risk Factor Age < 65 years old 0 Gender Risk Factor Male 0 Hx of CHF No 0 Hx of HTN Yes 1 Hx of Stroke/TIA/or VTE No 0 Hx of Diabetes Yes 1 Hx of Vascular Disease Yes 1 Total 3 Treatment Treatment ordered: Apixaban RAY GAY MD March 03, 2021 10:40
[2021-03-03] MEDS ORDERED: CARV12.5 PO (12:00)
[2021-03-03] MEDS ORDERED: GABA-1171 PO (12:00)
[2021-03-03] MEDS ORDERED: DILT120C89 PO (12:00)
[2021-03-03] MEDS ORDERED: VITA-158 PO (12:00)
[2021-03-03] MEDS ORDERED: LIDO1CRE42 TOP (12:00)
[2021-03-03] MEDS ORDERED: VELP5CHW PO (12:00)
[2021-03-03] MEDS ORDERED: HYDR-4468 PO (12:00)
[2021-03-03] MEDS ORDERED: TRAM50TA2 PO (12:00)
[2021-03-03] MEDS: hydrOXYzine 25 MG TAB PO PRN (12:05)
[2021-03-03] MEDS ORDERED: APIXABAN 2.5 MG TAB (ELIQUIS) PO SCH (12:15)
[2021-03-03] MEDS ORDERED: FOLIC ACID 1 MG TAB PO SCH (12:15)
--- NOTE | 2021-03-03 13:17 | REP ---
INDICATION: left leg edema r/o abscess. COMPARISON: 01/06/2021. TECHNIQUE: Axial CT imaging left lower leg performed with sagittal and coronal reconstruction images. FINDINGS: There again sclerotic and cystic changes in the inferior aspect of the left talus. There is no fracture or dislocation. No osseous destruction is visualized. The cortex of the tibia and fibula is intact, with no evidence of significant periosteal reaction. There are diffuse vascular calcifications noted. Significant diffuse soft tissue edema is present especially superficially. There is no definite focal fluid collection or abscess, however, evaluation for abscess is limited without IV contrast. Findings appear unchanged compared to the prior study. IMPRESSION: Significant diffuse soft tissue edema with no definite focal abscess. No change since prior study. <Electronically signed by Robert Martinez > 03/03/21 [id number]
[2021-03-03 14:40] VITALS: BP 104/58
--- NOTE | 2021-03-03 17:37 | CR ---
NEPHROLOGY CONSULTATION DATE: 03/03/2021 REQUESTING PHYSICIAN: Trish Patricia M.D. CONSULTING PHYSICIAN: Melisa Trujillo M.D. REASON FOR CONSULTATION: Left leg cellulitis in this gentleman with end-stage renal disease. HISTORY OF PRESENT ILLNESS: Mr. Paulson is a 50-year-old gentleman with multiple chronic medical problems including a history of end-stage renal disease, type 2 diabetes, hypertension, systolic and diastolic congestive heart failure, and chronic lymphatic edema of the bilateral lower extremities along with venous insufficiency. He has chronic noncompliance with dietary and fluid restrictions and gains excessive amounts of weight between dialysis treatments. Lately he has wounds on his legs and is being followed by the wound clinic. He was noticed to have redness of his entire left leg below the knee. He was sent to the Emergency Room after dialysis. The patient is being admitted due to cellulitis of his left lower extremity. A CAT scan of his leg was done which did not show any abscess. PAST MEDICAL AND SURGICAL HISTORY: The patient's past medical and surgical history is significant for: 1. Longstanding history of type 2 diabetes. 2. Hypertension. 3. Chronic lymphatic edema and venous insufficiency of both lower extremities below the knees. 4. History of chronic systolic congestive heart failure with ejection fraction of about 20%. 5. History of hyperparathyroidism. 6. History of gout. 7. History of obesity. 8. History of noncompliance with dietary and fluid restrictions. PAST SURGICAL HISTORY: The patient's past surgical history is significant for a left arm AV fistula creation. FAMILY HISTORY: Mother has heart and lung problems along with hypertension and diabetes. Father is with hypertension, diabetes and heart problems. PERSONAL AND SOCIAL HISTORY: The patient denies any alcohol, drug or recreational drug use. He does not smoke. MEDICATIONS: Home medications include: 1. Eliquis 2.5 mg twice daily. 2. Famotidine 20 mg twice daily. 3. Folic Acid one mg daily. 4. Metoprolol 25 mg half a tablet twice daily. 5. Furosemide 80 mg daily. 6. Albuterol Inhaler as needed for difficulty breathing. 7. Tramadol 50 mg p.r.n. for pain. ALLERGIES: The patient has allergy to Vancomycin. REVIEW OF SYSTEMS: Constitutional: The patient has not been feeling well for the last few days. He reports worsening pain in his left lower extremity. He denies any high grade fever or chills. Ears, Nose and Throat are unremarkable. Cardiovascular system is significant for chronic systolic congestive heart failure and decompensated volume status with noncompliance with dietary and fluid restrictions. He gains excessive amounts of weight between dialysis treatments and has chronic lower extremity and scrotal edema. Respiratory system is negative for cough or hemoptysis. GI system is negative for vomiting or diarrhea. Genitourinary system is significant for scrotal edema. He denies any dysuria or hematuria. Musculoskeletal system is as per history of present illness. Endocrine system is significant for type 2 diabetes and secondary hyperparathyroidism. Hematological system is significant for chronic anticoagulation and anemia. Neurologic system is negative for seizures or strokes. Psychosocial system is significant for a poor compliance with medical care. PHYSICAL EXAMINATION: GENERAL APPEARANCE: The patient is in mild to moderate discomfort due to pain in his left leg. He denies any respiratory problems. VITAL SIGNS: Temperature is 97.7 degrees Fahrenheit, heart rate 82 per minute, and respiratory rate 20 per minute, blood pressure 104/58 mm of mercury and oxygen saturation is 97% on room air. HEENT: His head is atraumatic. NECK: Supple and JVD not abnormally elevated. HEART: Irregular in rhythm. LUNGS: Clear to auscultation. ABDOMEN: Obese, soft and nontender and bowel sounds are normal. EXTREMITIES: Without any cyanosis or clubbing. Left arm AV fistula is patent. He has bilateral chronic stasis and lymphatic edema on the lower extremities below the knees. Both legs have mild superficial ulcers. Left leg has significant erythema on the ankle area and up to the mid calf area. He has some ulcers on the left calf. NEUROLOGICAL: He is at his baseline mentation without any focal deficits. LABORATORY DATA: WBC count is 11.4, hemoglobin 11.7 and hematocrit 38.9, platelet count 138. Sodium 135, potassium 4.6, CO2 27, BUN 47 and creatinine 6.2, glucose 92 and lactic acid 1.7. Calcium is 9.6 and C-reactive protein is 8.34. Total protein is 7.7 and albumin is 3.2. PROBLEMS: 1. End-stage renal disease - The patient was dialyzed today and his volume status is well compensated. He will not need another dialysis until Saturday. 2. Cellulitis left leg this is chronic stasis and now he has superimposed cellulitis. He is being started on Ceftriaxone 2 grams every 24 hours. The patient has an allergy to Vancomycin. Cultures should be taken from the wound in case he has MRSA, then we can treat him with Zyvox. 3. Anemia his anemia is mild and stable and he does not need any urgent intervention. 4. Chronic systolic congestive heart failure and bilateral lower extremity edema - The patient has quite complicated medical problems, however he is also very noncompliant with dietary and fluid restrictions. He gains between 5 and 7 kg between dialysis treatments. He has decreased left ventricular ejection fraction and lymphatic and venous edema. At this point we will try our efforts to maintain his volume status as good as possible. 5. Atrial fibrillation he remains on chronic beta lisbeth therapy and anticoagulation with Eliquis. Thank you for involving me in the care of Mr. Paulson. Our Nephrology Service will follow him along with you. CAMMY
[2021-03-03] MEDS: APIXABAN 2.5 MG TAB (ELIQUIS) PO SCH (20:46)
[2021-03-03 22:00] VITALS: BP 105/57
[2021-03-03] MEDS ORDERED: GLUCAGON INJ 1MG VIAL SC PRN (23:15)
[2021-03-03] MEDS ORDERED: DEXTROSE 50% 50 ML SYRINGE IV PRN (23:15)
[2021-03-03] MEDS ORDERED: GLUCOSE 4GM CHEW TABLET PO PRN (23:15)
[2021-03-04] MEDS: HumaLOG INSULIN (NovoLOG) PER UNIT SC SCH ×5 (00:05→22:02)
[2021-03-04] MEDS ORDERED: traMADol 50 MG TAB PO PRN (02:45)
[2021-03-04 06:00] VITALS: BP 112/56
[2021-03-04 06:22] LABS: BASO % 0.2 % (0.0-1.0); EOS # 0.1 10^3/uL (0.0-0.5); EOS % 0.9 % (0.0-3.0); HEMATOCRIT 34.2 % (42.0-52.0); HEMOGLOBIN 10.2 g/dl (13.5-17.5); LYMPH # 0.6 10^3/uL (1.5-5.0); LYMPH % 7.6 % (24.0-44.0); MEAN CORPUSCULAR HEMOGLOBIN 30.9 pg (27.0-33.0); MEAN CORPUSCULAR HGB CONC 29.8 g/dl (32.0-36.5); MEAN CORPUSCULAR VOLUME 103.6 fl (80.0-96.0); MONO # 0.8 10^3/uL (0.0-0.8); NEUTROPHILS # 6.5 10^3/uL (1.5-8.5); NEUTROPHILS % 80.4 % (36.0-66.0); PLATELET COUNT, AUTOMATED 112 10^3/uL (150-450); WHITE BLOOD COUNT 8.1 10^3/uL (4.0-10.0)
[2021-03-04 07:03] LABS: C REACTIVE PROTEIN QUANTITATIV 29.9 MG/DL (0.00-0.30); CALCIUM LEVEL 10.1 MG/DL (8.5-10.1); CREATININE FOR GFR 8.54 MG/DL (0.70-1.30); POTASSIUM SERUM 5.6 MEQ/L (3.5-5.1)
[2021-03-04] MEDS: FOLIC ACID 1 MG TAB PO SCH (08:10)
[2021-03-04] MEDS: PRAVASTATIN 20 MG TAB PO SCH (08:11)
[2021-03-04] MEDS: APIXABAN 2.5 MG TAB (ELIQUIS) PO SCH ×2 (08:11→22:09)
[2021-03-04] MEDS ORDERED: FLUBLOK(EGG FREE)(QUAD)INFLUENZA VACC 0.5ML SYRINGE 18YRS & OLDER IM ONE (09:00)
--- NOTE | 2021-03-04 09:25 | ECGEPIP ---
[facility] - ED Test Date: 2021-03-03 Pat Name: RAOUL MOREJON Department: Room: - Gender: Male Mail Processing Clerk: NADER : 1970 Requested By: Stefany Malone Order Number: [id number] Reading MD: Stefany Malone Measurements Intervals [place] Rate: 82 P: [place]: QRS: -29 QRSD: 80 T: 9 QT: 360 QTc: 420 Interpretive Statements Atrial fibrillation Low voltage QRS Septal infarct , age undetermined NSTTW abnormalities decreased rate 01/06/21 Electronically Signed on 03-04-2021 9:25:10 EDT by Stefany Malone
[2021-03-04] MEDS ORDERED: CEFTAROLINE FOSAMIL 600 MG in D5W MINI-BAG PLUS 50 ML IV SCH (09:30)
[2021-03-04] MEDS: MIDODRINE 5 MG TAB PO SCH ×4 (10:00→17:08)
[2021-03-04] MEDS ORDERED: NALOXONE INJ 0.4MG/1ML VIAL (J2310 PER 1MG) IV PRN (10:05)
[2021-03-04] MEDS ORDERED: HYDROMORPHONE HCL 0.5 MG/ 0.5 ML SYRINGE (J1170 PER 1) IV ONE (10:15)
[2021-03-04] MEDS: PERCOCET 5MG/325MG TAB PO ONE ×2 (10:17→10:23)
[2021-03-04] MEDS: LINEZOLID 600 MG in IV 1 EA IV SCH ×2 (10:18→22:10)
[2021-03-04] MEDS ORDERED: cefTRIAXone SOD 2 GM in D5W MINI-BAG PLUS 50 ML IV SCH (11:00)
[2021-03-04] MEDS: SUCROFERRIC OXYHYDROXIDE 500MG CHEW TAB (VELPHORO) PO SCH ×3 (12:30→17:16)
[2021-03-04] MEDS: ASCORBIC ACID 500 MG TAB PO SCH (13:23)
[2021-03-04] MEDS: FAMOTIDINE 20 MG TAB PO SCH ×2 (13:23→22:10)
[2021-03-04] MEDS: CARVedilol 12.5 MG TAB PO SCH ×2 (13:24→22:08)
[2021-03-04 14:00] VITALS: BP 115/74
--- NOTE | 2021-03-04 15:05 | IPN ---
PROGRESS NOTE DATE: 03/04/2021 SUBJECTIVE: Patient complaints of 10/10 pain with his chronic lower extremity edema, worse on the left where he has a cellulitis. No fever or chills overnight. The patient is unable to ambulate due to severe lymphedema and severe pain in the left lower extremity. He wanted to sign out against medical advice due to severe pain. "You're not doing anything for me. I want tubes put in and I want you to cut it off." After speaking with the patient thoroughly, as well as his crm coordinator, the patient is agreeable to stay for further treatment. PHYSICAL EXAMINATION: Temperature 98.5, pulse 102 sinus, respiratory rate 18, blood pressure 112/56, 96% on room air. GENERAL: Patient is awake, alert, oriented to person, place and time, answering questions appropriately. LUNGS: Clear to auscultation. No wheezing, rales or rhonchi. HEART: S1, S2. Sinus rhythm. ABDOMEN: Soft, nontender, nondistended. Obese abdomen. EXTREMITIES: Chronic lymphedema 3+. Left lower extremity is oozing serosanguinous material with more erythema than the right. LABORATORY DATA: White count 8, hemoglobin 10, hematocrit 34, platelet count 112. Sodium 134, potassium 5.6, chloride 99, bicarbonate 24, BUN 67, creatinine 8.54, glucose 91. C-reactive protein 29.9. ASSESSMENT AND PLAN: This is a 50-year-old with morbid obesity, end-stage renal disease on dialysis Saturday, Saturday, Saturday, diabetes, hypertension, chronic lower extremity lymphedema, venous insufficiency, anemia due to end-stage renal failure, gout due to chronic kidney disease, recent treatment for left lower extremity cellulitis with intravenous (IV) ceftaroline, presents with worsening edema, redness and pain in the left lower extremity greater than the right. Patient is admitted for the following issues. 1. Left lower extremity cellulitis in the setting of chronic lymphedema and chronic venous insufficiency. 2. End-stage renal disease on maintenance dialysis Saturday, Saturday and Saturday. 3. Hypertension, controlled. 4. Type 2 diabetes. 5. Obesity. 6. Chronic obstructive pulmonary disease (COPD), compensated. 7. Anemia of chronic disease due to end-stage renal failure. No acute indication for red blood cell (RBC) transfusion. 8. Gout due to end-stage renal disease. 9. Hypercholesterolemia. 10. Iron deficiency anemia. 11. Chronic atrial fibrillation. Patient is on chronic Eliquis. PLAN: Patient is on IV ceftriaxone. Zyvox added for methicillin-resistant Staphylococcus aureus (MRSA) infection coverage. He is started on Percocet one tablet every 6 hours routinely. IV Dilaudid given for breakthrough pain. General surgery, Dr. Perez, has been consulted for lymphedema management. Dr. Macario consulted to arrange for Telemedicine. He is on insulin sliding scale per [facility] protocol as well as hyperglycemic protocol. Patient is on Coreg for rate control and diltiazem 120 mg. MTDD
[2021-03-04] MEDS: PERCOCET 5MG/325MG TAB PO SCH ×2 (17:12→23:02)
[2021-03-04] MEDS ORDERED: DARBEPOETIN 200MCG/0.4ML *DIALYSIS* SYRINGE (J0882 PER 1MCG) IV SCH (20:45)
[2021-03-04 22:00] VITALS: BP 115/59
[2021-03-04] MEDS: HYDROCORTISONE 10 MG TAB PO SCH (22:09)
[2021-03-04] MEDS: hydrOXYzine 25 MG TAB PO PRN (22:10)
[2021-03-04] MEDS: ACETAMINOPHEN TAB 650MG DOSE (2X325MG) PO PRN (22:10)
--- NOTE | 2021-03-04 23:49 | IPN ---
NEPHROLOGY PROGRESS NOTE DATE: 03/04/2021 SUBJECTIVE: The patient was seen and examined at the bedside today morning. The patient was admitted yesterday. He was afebrile at this time, however he reports severe pain in the bilateral lower extremities. Left is worse than right. Tramadol oral is not helping him at this time. He also lower extremity edema. He continues to be on IV antibiotics at this time. OBJECTIVE: VITAL SIGNS: Temperature is 98.4 degrees Fahrenheit, blood pressure 115/74, pulse is 100, respiratory rate of 18, saturating 96% on room air. INTAKE AND OUTPUT: There is no urine output recorded. Weight in the bed scale is 120.7 kg. PHYSICAL EXAMINATION: GENERAL APPEARANCE: The patient is awake, alert, oriented x3, laying in bed moderately obese. HEAD AND NECK: Extraocular muscles intact. Pupils are equally round and reactive to light. Mucous membranes are moist. Neck is supple. There is mildly elevated jugular venous distention. CARDIOVASCULAR: S1, S2, regular rate. EXTREMITIES: Significant lymphedema of the bilateral lower extremities was noted. RESPIRATORY: Chest is clear to auscultation bilaterally. Bilaterally currently no rales or rhonchi. ABDOMEN: Soft, positive bowel sounds, nontender, no organomegaly. MUSCULOSKELETAL: Significant lymphedema of the bilateral lower extremities was noted. Left is worse than right. The patient has erythema and severe tenderness of the left lower extremity. He has swelling of his feet starting from his toes going all the way up to his thighs. DOCTOR OF NURSE ANESTHESIA: No focal deficits. Power is 5/5 in the bilateral upper extremities. AV ACCESS: The patient has a left forearm AV fistula. LAB REVIEW: CBC showed a white blood cell count of 8.1, hemoglobin 10.2, platelet count 112. BMP showed sodium of 134, potassium 5.6, chloride 99, bicarbonate 24, BUN 67, creatinine is 8.5, calcium 10.1. C-reactive protein is 29.9. Microbiology human rhinovirus enterovirus is positive. COVID-19 is negative. IMAGING: A CAT scan of the left leg was done which showed significant diffuse soft tissue edema with no definite focal abscess. CURRENT INPATIENT MEDICATIONS: The patient's medications were all reviewed by myself. IV Ceftaroline has been stopped. The patient is currently on IV Zyvox. His Tramadol has been stopped. He has been given IV Dilaudid, and Percocet has been started, one tablet p.o. q. 6 hourly. ASSESSMENT AND PLAN: 1. End-stage renal disease - The patient's regular dialysis days are Saturday, Saturday, Saturday. He was dialyzed yesterday. I would give him an extra session of hemodialysis to improve his volume status and hyperkalemia. 2. Hyperkalemia - The patient will be dialyzed with a 2K bath tomorrow morning. 3. Cellulitis of the left lower extremity and chronic venous stasis and lymphedema - The patient is currently on IV Zyvox. The pain is being optimized with IV and oral opioids. 4. Ompqa-[id number] decompensated systolic congestive heart failure - The patient is significantly volume overloaded. He will get an extra session of hemodialysis today. 5. Atrial fibrillation his heart rate is controlled with Diltiazem, and he is anticoagulated with Eliquis. 6. Anemia and end-stage renal disease - hemoglobin level is 10.2 which is optimal at this time. He has been started on Aranesp with dialysis. 7. Hypertension - blood pressure is controlled with a current dose of Coreg and Diltiazem. 8. Chronic kidney disease, mineral bone disease - continue current of Velphoro.
[2021-03-05] MEDS ORDERED: ONDANSETRON 4 MG ORAL DISINTEGRATING TAB SL SCH (00:15)
[2021-03-05] MEDS: ONDANSETRON 4 MG ORAL DISINTEGRATING TAB SL PRN ×2 (00:35→14:45)
[2021-03-05] MEDS: CALCIUM CARBONATE 500 MG CHEW U/D PO PRN ×2 (00:36→15:58)
[2021-03-05 06:00] VITALS: BP 131/60
[2021-03-05] MEDS ORDERED: LIDOCAINE 1% SDV 5ML VIAL SC PRN (06:00)
[2021-03-05 06:27] LABS: BASO % 0.3 % (0.0-1.0); EOS # 0.1 10^3/uL (0.0-0.5); EOS % 1.1 % (0.0-3.0); HEMATOCRIT 32.2 % (42.0-52.0); HEMOGLOBIN 9.7 g/dl (13.5-17.5); LYMPH # 0.4 10^3/uL (1.5-5.0); LYMPH % 6.9 % (24.0-44.0); MEAN CORPUSCULAR HEMOGLOBIN 31.2 pg (27.0-33.0); MEAN CORPUSCULAR HGB CONC 30.1 g/dl (32.0-36.5); MEAN CORPUSCULAR VOLUME 103.5 fl (80.0-96.0); MONO # 0.7 10^3/uL (0.0-0.8); MONO % 11.6 % (2.0-8.0); NEUTROPHILS % 79.6 % (36.0-66.0); PLATELET COUNT, AUTOMATED 116 10^3/uL (150-450); RED BLOOD COUNT 3.11 10^6/uL (4.30-6.10); WHITE BLOOD COUNT 6.2 10^3/uL (4.0-10.0)
[2021-03-05] MEDS: PERCOCET 5MG/325MG TAB PO SCH (06:31)
[2021-03-05 07:01] LABS: C REACTIVE PROTEIN QUANTITATIV 33.4 MG/DL (0.00-0.30); CALCIUM LEVEL 9.5 MG/DL (8.5-10.1); CREATININE FOR GFR 10.6 MG/DL (0.70-1.30); GLOMERULAR FILTRATION RATE 5.5 (>56); POTASSIUM SERUM 6.4 MEQ/L (3.5-5.1)
[2021-03-05] MEDS: HumaLOG INSULIN (NovoLOG) PER UNIT SC SCH ×4 (07:30→21:00)
[2021-03-05 07:45] LABS: ERYTHROCYTE SEDIMENTATION RATE 106 mm/hr (0-20)
[2021-03-05] MEDS: FAMOTIDINE 20 MG TAB PO SCH ×2 (07:49→21:11)
[2021-03-05] MEDS: APIXABAN 2.5 MG TAB (ELIQUIS) PO SCH ×2 (07:50→21:10)
[2021-03-05] MEDS: ASCORBIC ACID 500 MG TAB PO SCH (07:50)
[2021-03-05] MEDS: FOLIC ACID 1 MG TAB PO SCH (07:50)
[2021-03-05] MEDS: PRAVASTATIN 20 MG TAB PO SCH (07:50)
[2021-03-05] MEDS: MIDODRINE 5 MG TAB PO SCH ×3 (07:50→16:48)
[2021-03-05] MEDS: CARVedilol 12.5 MG TAB PO SCH (07:51)
[2021-03-05] MEDS: SUCROFERRIC OXYHYDROXIDE 500MG CHEW TAB (VELPHORO) PO SCH ×3 (07:51→17:00)
[2021-03-05] MEDS ORDERED: PILL CUTTER 1 EACH XX PRN (09:50)
[2021-03-05] MEDS ORDERED: HYDROmorphone 2 MG TAB PO ONE (10:00)
[2021-03-05 13:00] VITALS: BP 116/74
[2021-03-05] MEDS: HYDROmorphone 2 MG TAB PO SCH ×2 (13:14→17:21)
[2021-03-05] MEDS: LINEZOLID 600 MG in IV 1 EA IV SCH ×2 (13:16→21:12)
[2021-03-05 14:00] VITALS: BP 116/74
[2021-03-05] MEDS: hydrOXYzine 25 MG TAB PO PRN (14:45)
[2021-03-05] MEDS: ACETAMINOPHEN TAB 650MG DOSE (2X325MG) PO PRN (14:46)
--- NOTE | 2021-03-05 14:48 | CR ---
CONSULTATION DATE: 03/05/2021 REASON FOR CONSULTATION: 1. Cellulitis. 2. Open wound. 3. Venous stasis ulcer on the left leg. BRIEF HISTORY OF PRESENT ILLNESS: The patient is a 50-year-old male with multiple chronic medical issues with chronic lymphedema issues with venous stasis issues as well and significant problems with noncompliance, excessive fluid weight gain between dialysis treatments. And he had significant cellulitis when he presented to the Emergency Room. Since that time though the cellulitis/inflammatory changes have not improved. I was asked to see him for additional recommendations. His white count was 11.4 on admission. This morning it is 6.2. PAST MEDICAL HISTORY: The patient's past medical history is significant for: 1. History of chronic lymphedema. 2. History of end-stage renal disease on dialysis. 3. History of diabetes mellitus. 4. Hypertension. 5. Anemia. 6. Obesity. 7. Chronic gout. 8. Lower extremity cellulitis. MEDICATIONS: 1. Eliquis. 2. Famotidine. 3. Folic Acid. 4. Metoprolol. 5. Pravastatin. 6. Albuterol. 7. Hydroxyzine. 8. Tramadol. PHYSICAL EXAMINATION: GENERAL APPEARANCE: A 50-year-old male who looks much older than stated age. HEENT: Unremarkable. LUNGS: Clear anteriorly, diminished posteriorly with a few crackles at the bases. HEART: Regular. Multiple irregular beats. ABDOMEN: Soft, nontender. Umbilical hernia is appreciated, easily reducible. EXTREMITIES: Lower extremities reveal significant chronic venous stasis disease with lymphedema issues that have been chronic. And he has an open ulcer on his left lateral leg which I removed the dressing partially. There was some clot underneath the dressing that started drainage very quickly and started bleeding from the site. It did not appear to be arterial bleeding. It appeared to venous stasis issues as his major problem. IMPRESSION AND PLAN: 1. The patient has a venous stasis ulcer, and I would recommend that he be evaluated by Vascular for venous insufficiency with possible need for saphenous vein ligation. At this point this may be his next treatment. Overall it may be that contributing to this obviously is his anticoagulation. 2. His second issue is that he is significantly fluid overloaded at this time, also contributing to his current situation. In any case until those issues are improved/resolved, he will need to keep his legs elevated as much as possible. Unfortunately as I stated previously, I think he will need a vascular evaluation for venous insufficiency and saphenous valvular incompetence. Otherwise from a general surgery standpoint, local care is warranted with leg elevation and continued treatment with antibiotics. I am not impressed that there is any significant cellulitis left over and I anticipate the majority of his erythema that people are noticing at this time is reactive erythema secondary to his edema. Thank you for this consult.
--- NOTE | 2021-03-05 15:05 | IPN ---
PROGRESS NOTE DATE: 03/05/2021 SUBJECTIVE: According to nursing, patient had significant bleeding in the left lower extremity when he was moved around. General surgery requested vascular surgery to do vein ablation. When patient was seen in dialysis today, bleeding had stopped. He is on anticoagulants due to history of atrial fibrillation in the past. No fever or chills. Pain is still rated as 7/10, was on Percocet, one tablet every 6 hours, received intravenous (IV) Dilaudid yesterday with good control of pain. Patient is agreeable to seeing a psychiatrist for depression today. Dr. Bui has been consulted. He is receiving dialysis as scheduled. PHYSICAL EXAMINATION: VITAL SIGNS: Temperature 97.5, pulse 74, respiratory rate 21, blood pressure 112/57, 93% on room air. GENERAL: Patient is awake, alert, oriented, answering questions appropriately. No pallor, icterus, jaundice or use of respiratory accessory muscles. HEENT: No jugular venous distention (JVD), thyromegaly, cervical lymphadenopathy, carotid bruit or stridor. LUNGS: Diminished. No wheezing, rales or rhonchi. HEART: S1, S2. Irregularly irregular. ABDOMEN: Obese. Soft, nontender, nondistended. Positive bowel sounds. EXTREMITIES: Chronic lymphedema 3+. Patient has left lower extremity serosanguineous draining with open lesions with bloody discharge, but not oozing. LABORATORY DATA: CBC, metabolic panel have been reviewed, notable for potassium 6.4, creatinine of 10. Currently undergoing dialysis. C-reactive protein has increased to 33.4. Currently on ceftriaxone and intravenous vancomycin renally dosed after dialysis. ASSESSMENT: This is a 50-year-old male with history of end-stage renal disease on maintenance dialysis, chronic lymphedema, follows with Dr. Macario as outpatient, morbid obesity, diabetes, hypertension, venous insufficiency, anemia due to renal failure, gout due to renal failure, recently treated for left lower extremity cellulitis with IV ceftaroline, who presents for a second admission for the same issue with worsening edema, redness, pain of the left lower extremity. IMPRESSION: 1. Left lower extremity cellulitis in the setting of chronic lymphedema and chronic venous insufficiency. 2. End-stage renal disease on maintenance dialysis Saturday, Saturday, Saturday. 3. Hypertension, controlled. 4. Type 2 diabetes. 5. Obesity. 6. Chronic obstructive pulmonary disease (COPD), compensated. 7. Anemia of chronic disease. 8. Gout due to renal failure. 9. Hypercholesterolemia. 10. Iron deficiency anemia. 11. Chronic atrial fibrillation on Eliquis. 12. Depression. PLAN: Patient is currently on Zyvox intravenously and ceftriaxone with persistent elevation in C-reactive protein and sedimentation rate without fever, but normal white count. General surgery has been consulted for help in management of chronic lymphedema, but had significant bleeding yesterday with recommendations for vascular surgery to evaluate the patient for ablation. Will attempt to see if vascular surgery is available. Bleeding has stopped currently. He is rate controlled with is atrial fibrillation on Cardizem and Coreg. Eliquis for anticoagulation. He is on hyperglycemic protocol, consistent carbohydrate diet with controlled type 2 diabetes. Blood pressure is well-maintained and still requiring midodrine. Patient has been increasingly depressed due to chronic illness and chronic pain. Psychiatry has been consulted for help in management.
[2021-03-05] MEDS: cefTRIAXone SOD 1 GM in D5W MINI-BAG PLUS 50 ML IV SCH (15:49)
[2021-03-05] MEDS ORDERED: METOCLOPRAMIDE INJ 10MG/2ML VIAL (J2765 PER 1) IV SCH (16:00)
[2021-03-05] MEDS ORDERED: HYDROMORPHONE HCL 0.5 MG/ 0.5 ML SYRINGE (J1170 PER 1) IV PRN ×2 (16:00)
[2021-03-05] MEDS: PROMETHAZINE INJ 25 MG/ML VIAL (J2550) IV SCH ×2 (16:49→22:34)
[2021-03-05] MEDS: ONDANSETRON 4MG/2ML VIAL IV SCH (17:20)
[2021-03-05] MEDS: HYDROCORTISONE 10 MG TAB PO SCH (21:11)
--- NOTE | 2021-03-05 21:12 | IPN ---
PROGRESS NOTE DATE: 03/05/2021 SUBJECTIVE: Patient was seen and examined at the bedside today morning at hemodialysis, today is Saturday, however because of his worsening hyperkalemia and fluid overload and lymphedema of lower extremities, I arranged extra session of hemodialysis for him today. He reports (cuts out) is slightly better optimized with the higher dose of opioids. He continues to be on I.V. antibiotics for left leg cellulitis. OBJECTIVE: VITAL SIGNS: Temperature 96.9 degrees Fahrenheit, blood pressure 116/74, pulse 88, respiratory rate 17, saturating 97% on room air. INTAKE/OUTPUT: (cuts out) No urine output recorded. Weight in the bed scale is not available. PHYSICAL EXAMINATION: GENERAL: Patient is awake, alert and oriented x3, obese body habitus, lying in bed. HEAD/NECK: Extraocular muscles intact. Pupils equally round and reactive to light. Mucous membranes are moist. Neck is supple, mildly elevated JVD. CVS: S1, S2, regular rate. 3+ edema of the bilateral lower extremities. RESPIRATORY: Chest is clear to auscultation bilaterally. Bilateral equal air entry. ABDOMEN: Obese, (cuts out) of the abdominal wall. MUSCULOSKELETAL: He has 3+ edema of the bilateral lower extremities. Cellulitis of the left leg. Left leg is severely tender and right leg is moderately tender. He has small ulcerations on the lower extremities as well. (cuts out) getting slightly better. SUPERVISOR SOLDERING: No focal deficit. Power is 5/5 in bilateral upper extremities. AV ACCESS: He has a left forearm AV fistula, which is being used for dialysis. LABORATORY REVIEW: CBC showed WBC 6.2, hemoglobin 9.7, platelets (cuts out). BMP showed sodium 133, potassium 6.4, chloride 99, bicarb 20, BUN 96, creatinine 10.6. C-reactive protein 33.4, which is higher than yesterday. CURRENT INPATIENT MEDICATIONS: Patient's medications were all reviewed by myself. I have started the patient on Ceftriaxone. He continues to be on I.V. Zyvox as well. He has been started on oral (cuts out). Percocet has been stopped. ASSESSMENT AND PLAN: 1. End-stage renal disease: Patient's regular dialysis days are Saturday, Saturday, Saturday, however, he is being dialyzed off schedule (cuts out). Ultrafiltration goal will be 3 liters as tolerated by his blood pressure. 2. Hyperkalemia: Patient's diet has been changed to renal diet. He is being dialyzed with a 2K bath. Potassium should get better. 3. Cellulitis of the left leg: Patient is on I.V. Zyvox. He is allergic to Vancomycin. I have added Ceftriaxone for (cuts out). 4. Acute on chronic decompensated systolic congestive heart failure: Patient is volume overloaded. As mentioned above, he is being dialyzed today and he will be dialyzed again according to his regular schedule tomorrow as well. 5. Atrial fibrillation: Heart rate is controlled with (cuts out). 6. Anemia and end-stage renal disease: Patient is getting Aranesp with dialysis. 7. Hypertension: He is currently on Coreg at (cuts out) antihypertensives, so that Coreg does not affect his lymphedema. 8. Chronic kidney disease/mineral bone disease: Continue current dose of Velphoro.
[2021-03-06] MEDS: ONDANSETRON 4MG/2ML VIAL IV SCH ×4 (00:16→17:52)
[2021-03-06] MEDS: HYDROmorphone 2 MG TAB PO SCH ×4 (00:16→17:51)
[2021-03-06] MEDS: PROMETHAZINE INJ 25 MG/ML VIAL (J2550) IV SCH ×2 (04:40→10:30)
[2021-03-06 05:51] LABS: BASO % 0.3 % (0.0-1.0); EOS # 0.1 10^3/uL (0.0-0.5); HEMATOCRIT 32.3 % (42.0-52.0); HEMOGLOBIN 9.8 g/dl (13.5-17.5); LYMPH # 0.4 10^3/uL (1.5-5.0); LYMPH % 13.9 % (24.0-44.0); MEAN CORPUSCULAR HEMOGLOBIN 31.1 pg (27.0-33.0); MEAN CORPUSCULAR HGB CONC 30.3 g/dl (32.0-36.5); MEAN CORPUSCULAR VOLUME 102.5 fl (80.0-96.0); MONO # 0.9 10^3/uL (0.0-0.8); MONO % 30.7 % (2.0-8.0); NEUTROPHILS # 1.6 10^3/uL (1.5-8.5); NEUTROPHILS % 52.4 % (36.0-66.0); PLATELET COUNT, AUTOMATED 122 10^3/uL (150-450); RED BLOOD COUNT 3.15 10^6/uL (4.30-6.10)
[2021-03-06 06:00] VITALS: BP 130/60
[2021-03-06] MEDS ORDERED: LIDOCAINE 1% SDV 5ML VIAL SC PRN (06:00)
[2021-03-06] MEDS: ASCORBIC ACID 500 MG TAB PO SCH (06:05)
[2021-03-06] MEDS: APIXABAN 2.5 MG TAB (ELIQUIS) PO SCH ×2 (06:05→21:17)
[2021-03-06] MEDS: FAMOTIDINE 20 MG TAB PO SCH ×2 (06:05→21:16)
[2021-03-06] MEDS: MIDODRINE 5 MG TAB PO SCH ×3 (06:06→16:08)
[2021-03-06] MEDS: FOLIC ACID 1 MG TAB PO SCH (06:07)
[2021-03-06] MEDS: PRAVASTATIN 20 MG TAB PO SCH (06:07)
[2021-03-06 06:23] LABS: C REACTIVE PROTEIN QUANTITATIV 21.5 MG/DL (0.00-0.30); CALCIUM LEVEL 9.9 MG/DL (8.5-10.1); CREATININE FOR GFR 7.95 MG/DL (0.70-1.30); GLOMERULAR FILTRATION RATE 7.6 (>56)
[2021-03-06 06:33] LABS: ERYTHROCYTE SEDIMENTATION RATE 124 mm/hr (0-20)
[2021-03-06] MEDS: SUCROFERRIC OXYHYDROXIDE 500MG CHEW TAB (VELPHORO) PO SCH ×3 (07:22→17:51)
[2021-03-06] MEDS: HumaLOG INSULIN (NovoLOG) PER UNIT SC SCH ×4 (07:22→21:00)
[2021-03-06 08:13] LABS: PHOSPHORUS LEVEL 8.3 MG/DL (2.5-4.9)
[2021-03-06] MEDS ORDERED: METOPROLOL SUCC (TopROL XL) 50MG **XL** TAB PO SCH (09:00)
--- NOTE | 2021-03-06 09:07 | IPNPDOC ---
Text Note Date of Service The patient was seen on 03/06/21. NOTE General Surgery Dr Perez The patient is a 50-year-old male with multiple chronic medical issues with chronic lymphedema issues with venous stasis issues as well and significant problems with noncompliance, excessive fluid weight gain between dialysis treatments, admitted with cellulitis and venous stasis ulcer of the left lower extremity. Afebrile. VSS Chronic venous stasis changes lower extremities with ulcer of the left lateral leg area. Assessment/plan Chronic venous stasis bilateral lower extremities with venous stasis ulcer left lower extremity. The patient was reviewed and examined as per Dr. Perez. Vascular evaluation for chronic venous insufficiency and possible consideration of saphenous vein ligation in the left lower extremity was suggested. Can request lower extremity venous ultrasound with VVI study to assess for reflux and if the patient would be a candidate for ablation of the greater saphenous vein. Since vascular surgery is not available until 03/20/21, could possibly consider consultation with interventional radiology for this procedure. VS,Fishbone, I+O VS, Fishbone, I+O Laboratory Tests 03/06/21 05:40 Vital Signs Date Time Temp Pulse Resp B/P (MAP) Pulse Ox O2 Delivery O2 Flow Rate FiO2 03/06/21 08:04 80 120/57 03/06/21 06:34 17 92 Room Air 03/06/21 06:00 98.2 I&O- Last 24 Hours up to 6 AM 03/06/21 05:59 Intake Total 1060 ml Output Total 3000 ml Balance -1940 ml Sanjana Fabian March 06, 2021 09:07
--- NOTE | 2021-03-06 12:57 | IPN ---
PROGRESS NOTE DATE: 03/06/2021 SUBJECTIVE: Patient had bleeding at the left lower extremity after being moved and examined by general surgeon. It was oozing for some time with recommendations for vein ablation. Vascular Surgery is not available. Therefore Interventional Radiology has been consulted and will take a look at the venous studies and try to see if venous ablation is possible at this time. The patient has not had any recurrent bleeding. He complains of 8/10 pain in the left lower extremity. He has had no fevers or chills. He has had no improvement with Percocet or Oxycodone and currently doing better on IV Dilaudid for breakthrough pain as well as by mouth Dilaudid one tablet every 6 hours. He has no complaints of diarrhea, nausea or vomiting. He is currently in dialysis, appears to be stable with no complaints aside from the pain. OBJECTIVE: VITAL SIGNS: Temperature 98.2, pulse 80, respiratory rate 18, blood pressure 120/57, 92% on room air. GENERAL: Generally awake, alert and oriented, answering questions appropriately. HEENT: No JVD or thyromegaly. Moist mucous membranes. LUNGS: Diminished. There is no wheezing or rales. HEART: S1, S2. No murmurs, rubs or gallops. Irregularly irregular. ABDOMEN: Obese, soft, nontender, nondistended. Positive bowel sounds. EXTREMITIES: Chronic lymphedema with some areas of scabbing and open lesions on the left lateral and posterior aspect of the extremity. Serous drainage is noted with open lesions. LABORATORY DATA: CBC, metabolic panel have been reviewed. Respiratory panel positive for human rhinovirus and enterovirus. Blood cultures are negative. Currently on Zyvox and Ceftriaxone day number four. ACTIVE ACUTE ISSUES ARE FOLLOWS: 1. Left lower extremity cellulitis in the setting of chronic lymphedema, chronic venous insufficiency with recent bleeding due to chronic Eliquis use for atrial fibrillation. The patient is being evaluated by Interventional Radiology. Venous studies to see if ablation would be of any benefit. CT extremities showed no abscess. Venous Dopplers were negative for DVT. Continue with supportive care with antibiotics to complete a seven-day course, renally dosed if needed. 2. Bleeding of the left lower extremity in the setting of chronic venous insufficiency, chronic lymphedema and chronic Apixaban. Interventional Radiologist Dr. Beth Andrade will review the venous studies and determine if it requires inpatient ablation. Otherwise, outpatient follow up in her office if stable. General Surgery has been consulted and recommends vein ablation if possible as an inpatient. 3. End-stage renal disease on maintenance dialysis. Male Infertility Specialist has been consulted for dialysis needs. 4. Chronic atrial fibrillation, rate controlled on Eliquis. He had episodes of bleeding of the left lower extremity. That has subsided without intervention. 5. Gout due to renal failure, chronic. 6. Anemia of chronic disease. No acute indication for RBC transfusion. 7. Hypercholesterolemia, chronic. 8. Type-2 diabetes on Insulin sliding scale, consistent carbohydrate diet and hypoglycemic protocol. 9. Obesity complicating care. BMI of 38.2.
[2021-03-06] MEDS: LINEZOLID 600 MG in IV 1 EA IV SCH ×2 (13:29→21:13)
[2021-03-06 14:00] VITALS: BP 110/59
--- NOTE | 2021-03-06 15:45 | IPN ---
PROGRESS NOTE DATE: 03/06/2021 SUBJECTIVE: Patient was seen and examined at the bedside today morning during hemodialysis procedure. He got extra session of dialysis yesterday as well, 3 liters of fluid was removed. He reports left leg pain is getting better. He continues to be on IV antibiotics. OBJECTIVE: Vital signs: Temperature is 98.2 degrees Fahrenheit, blood pressure 120/57, pulse is 88, respiratory rate of 17, saturating 92% on room air. Intake and output: Urine output is not recorded. Ultrafiltration with hemodialysis with 3 liters. Weight in the bed scale is not available. PHYSICAL EXAMINATION: General: Patient is awake, alert, oriented times three, obese body habitus, laying in bed, getting hemodialysis done. Head and neck exam: Extraocular muscles intact. Pupils equally round and reactive to light. Mucous membranes are moist. Neck is supple. There is no jugular venous distension (JVD). Cardiovascular: S1, S2, regular rate. Significant edema of the bilateral lower extremities with chronic lymphedema. Respiratory: Chest is clear to auscultation bilaterally. Bilateral equal air entry. No rales or rhonchi. Abdomen: Soft, positive bowel sounds, nontender, no organomegaly. Musculoskeletal: Patient has significant lymphedema of the bilateral lower extremities starting from toes all the way to his thighs. Skin: Patient has multiple ulcerations of bilateral lower extremities. He has erythema and tenderness of the left extremity starting from his foot all the way to his thigh and mid groin. Central nervous system (DIVORCE ATTORNEY): No focal deficit. Power is 5/5 in bilateral upper extremities. LABORATORY REVIEW: CBC showed WBC of 3, hemoglobin 9.8, platelets are 122. BMP showed sodium 134, potassium 5, chloride 99, bicarbonate 25, BUN 67, creatinine is 7.9, phosphorous 8.3, C-reactive protein is 21.5. CURRENT INPATIENT MEDICATIONS: Patient's medications were all reviewed by myself. He continues to be on IV ceftriaxone and Zyvox. Coreg has been stopped and he has been started on metoprolol 50 mg by mouth daily. He also continues to be on midodrine. No other significant change in the medications today as compared with yesterday. ASSESSMENT AND PLAN: 1. End-stage renal disease. Patient got extra session of dialysis yesterday. He is being dialyzed again today, I will remove at least 3 liters of fluid. 2. Hyperkalemia. It has resolved. He is being dialyzed with a 2K bath. 3. Cellulitis of the left leg. He continues to be on IV Zyvox. Ceftriaxone was added yesterday. Leukocytosis is getting better. 4. Acute on chronic decompensated systolic congestive heart failure. As mentioned above, patient is getting extra session of dialysis and ultrafiltration. Edema is slowly getting better. 5. Atrial fibrillation. Heart rate is controlled with metoprolol and diltiazem. He is anticoagulated with Eliquis. 6. Hypertension. Coreg was stopped because of persistent lower extremity edema. He is currently on metoprolol and Cardizem. 7. Hyperphosphatemia and mineral bone disease. Phosphorous level is very high. He is probably noncompliant with binders as outpatient. Continue current dose of Velphoro. 8. Anemia in end-stage renal disease. He has been started on Aranesp, one dose was given with dialysis.
[2021-03-06] MEDS ORDERED: BISACODYL 10 MG SUPP PR PRN (16:05)
[2021-03-06] MEDS: cefTRIAXone SOD 1 GM in D5W MINI-BAG PLUS 50 ML IV SCH (16:08)
[2021-03-06] MEDS: GABAPENTIN 100 MG CAP PO SCH (16:08)
[2021-03-06] MEDS: MIRALAX *UNIT DOSE* 17GM PACKET PO SCH (21:00)
[2021-03-06] MEDS: HYDROCORTISONE 10 MG TAB PO SCH (21:16)
[2021-03-06] MEDS: SENOKOT S TAB PO SCH (21:17)
[2021-03-06] MEDS: ACETAMINOPHEN TAB 650MG DOSE (2X325MG) PO PRN (21:18)
[2021-03-06 22:00] VITALS: BP 136/64
[2021-03-07] MEDS: ONDANSETRON 4MG/2ML VIAL IV SCH ×5 (00:01→21:43)
[2021-03-07] MEDS: HYDROmorphone 2 MG TAB PO SCH ×4 (00:02→18:23)
[2021-03-07 06:00] VITALS: BP 142/69
[2021-03-07 06:14] LABS: BASO % 0.7 % (0.0-1.0); EOS # 0.1 10^3/uL (0.0-0.5); EOS % 4.3 % (0.0-3.0); HEMATOCRIT 34.5 % (42.0-52.0); HEMOGLOBIN 10.4 g/dl (13.5-17.5); LYMPH # 0.7 10^3/uL (1.5-5.0); LYMPH % 21.9 % (24.0-44.0); MEAN CORPUSCULAR HGB CONC 30.1 g/dl (32.0-36.5); MONO # 0.9 10^3/uL (0.0-0.8); MONO % 29.9 % (2.0-8.0); NEUTROPHILS # 1.3 10^3/uL (1.5-8.5); NEUTROPHILS % 42.2 % (36.0-66.0); PLATELET COUNT, AUTOMATED 135 10^3/uL (150-450); RED BLOOD COUNT 3.35 10^6/uL (4.30-6.10)
[2021-03-07 06:33] LABS: C REACTIVE PROTEIN QUANTITATIV 11.8 MG/DL (0.00-0.30); CALCIUM LEVEL 9.3 MG/DL (8.5-10.1); CREATININE FOR GFR 7.15 MG/DL (0.70-1.30); GLOMERULAR FILTRATION RATE 8.6 (>56); POTASSIUM SERUM 5.1 MEQ/L (3.5-5.1)
[2021-03-07 07:29] LABS: ERYTHROCYTE SEDIMENTATION RATE 87 mm/hr (0-20)
[2021-03-07] MEDS: HumaLOG INSULIN (NovoLOG) PER UNIT SC SCH ×4 (07:30→21:00)
[2021-03-07] MEDS: MIDODRINE 5 MG TAB PO SCH ×3 (08:00→16:33)
[2021-03-07] MEDS: SUCROFERRIC OXYHYDROXIDE 500MG CHEW TAB (VELPHORO) PO SCH ×3 (08:00→17:15)
[2021-03-07] MEDS: MIRALAX *UNIT DOSE* 17GM PACKET PO SCH ×2 (09:00→21:00)
--- NOTE | 2021-03-07 10:02 | REP ---
INDICATION: WITH VVI STUDY to asses for reflux. dx BL venous stasis COMPARISON: None. TECHNIQUE: Martinez scale and color Doppler evaluation using linear high frequency transducer to assess for reflux disease. FINDINGS: There is evidence for mild reflux at the bilateral common femoral veins (right-5.3 seconds; left-3.7 seconds) with pulsatile flow suggesting underlying cardiac disease. There is no evidence for reflux disease through the bilateral superficial venous structures including accessory greater saphenous veins, greater saphenous veins, and lesser saphenous veins. IMPRESSION: 1. Mild reflux and pulsatile flow through the bilateral common femoral veins. 2. No further reflux disease noted. <Electronically signed by Saran Orozco > 03/07/21 0936
[2021-03-07] MEDS: SENOKOT S TAB PO SCH ×2 (10:24→21:00)
[2021-03-07] MEDS: PRAVASTATIN 20 MG TAB PO SCH (10:24)
[2021-03-07] MEDS: FOLIC ACID 1 MG TAB PO SCH (10:24)
[2021-03-07] MEDS: ASCORBIC ACID 500 MG TAB PO SCH (10:25)
[2021-03-07] MEDS: METOPROLOL SUCC *XL* 25MG TAB (TopROL *XL*) PO SCH (10:25)
[2021-03-07] MEDS: FAMOTIDINE 20 MG TAB PO SCH ×2 (10:25→21:00)
[2021-03-07] MEDS: LINEZOLID 600 MG in IV 1 EA IV SCH (10:26)
[2021-03-07] MEDS: APIXABAN 2.5 MG TAB (ELIQUIS) PO SCH ×2 (10:27→21:00)
--- NOTE | 2021-03-07 10:35 | IPN ---
PROGRESS NOTE DATE: 03/07/2021 SUBJECTIVE: Patient was seen and examined at the bedside today morning. He was dialyzed yesterday. He tolerated the hemodialysis procedure well. He reports the lower extremity pain is getting better. He continues to be on IV antibiotics. C-reactive protein is also gradually improving. OBJECTIVE: VITAL SIGNS: Temperature is 98 degrees Fahrenheit, blood pressure is 142/69, pulse is 55, respiratory rate is 18, saturating 96% on room air. INTAKE AND OUTPUT: Ultra filtration with hemodialysis was 2 liters. Weight on the bed scale is not available. GENERAL APPEARANCE: Patient is awake, alert and oriented x3 laying in bed, obese body habitus. HEAD AND NECK: Extraocular muscles intact. Pupils equally round and reactive to light. Mucous membranes are moist. Neck is supple. There is no JVD. CARDIOVASCULAR: S1 and S2, regular rate. Chronic lymphedema and chronic venous stasis changes of bilateral lower extremities were noted. RESPIRATORY: Chest is clear to auscultation bilaterally. Bilateral equal air entry. No rales or rhonchi. ABDOMEN: Soft, obese, positive bowel sounds. Nontender. MUSCULOSKELETAL: Patient has chronic lymphedema starting from his toes all the way up to his thighs. Left leg cellulitis and tenderness is noted, however is clinically getting better today as compared with yesterday. CLINIC ADMINISTRATOR: No focal deficit. Power is 5/5 in bilateral upper extremities. LABORATORY DATA: CBC showed a WBC of 3, hemoglobin of 10.4, platelets are 135,000. BMP showed a sodium of 135, potassium is 5.1, chloride 99, bicarbonate 24, BUN 57, creatinine is 7.1. Calcium is 9.3. C-reactive protein is 11.8 now. IMAGING: Doppler of the lower extremities was done which showed mild reflux and pulsatile flow through the bilateral common femoral veins. No further reflux disease is noted. CURRENT INPATIENT MEDICATIONS; The patient's medications were all reviewed by myself. He continues to be on Zyvox and Ceftriaxone IV. No other significant change in the medications today. ASSESSMENT AND PLAN: 1. Endstage renal disease. Patient was dialyzed yesterday. Next hemodialysis will be done tomorrow morning. Volume status is getting better. 2. Cellulitis of the left leg. Continue IV Zyvox and Ceftriaxone. C-reactive protein is getting better. 3. Acute and chronic decompensated systolic congestive heart failure. Patient got dialyzed back to back for two days. He still has lymphedema in the legs but otherwise volume status is getting better. 4. Atrial fibrillation. Heart rate is controlled with metoprolol and Diltiazem. Okay to continue Eliquis. 5. Hypertension. Patient continues to be on metoprolol and Cardizem. He is getting bradycardic. I am going to decrease the metoprolol dose.
--- NOTE | 2021-03-07 11:35 | MHCRPDOC ---
[facility] Consultation Consultation DATE OF CONSULTATION: 03/07/21 CONSULTATION REQUESTED BY: REASON FOR CONSULTATION: 50-year-old single male admitted due to ESRD and cellulitis along with the long history of the CHF, hypertension, and atrial fibrillation. Psychiatric consult was called due to significant depression secondary to his worsening physical condition. RELEVANT HISTORY: Has no previous psychiatric history but reports that he has been feeling frustrated, irritable and at times feeling hopeless and helpless but denies any suicidal thoughts. PAST PSYCHIATRIC HISTORY: No previous psychiatric treatment PAST MEDICAL HISTORY: As documented in his medical chart FAMILY HISTORY: Mother: Alive Father: of a heart teacher Siblings: Has 5 siblings Children: None Patient reports that he has no close contact with any of his family and his q uite socially isolated. PERSONAL AND SOCIAL HISTORY: The patient was born and raised in [place]. 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 SUBSTANCE ABUSE HISTORY: Smoking: None ETOH: Denies regular drinking Illicit Drugs: None Patient denies any substance abuse issues LEGAL HISTORY: . None MENTAL STATUS EXAMINATION: Patient is a 50-year old male, who is in bed in no acute distress and cooperative and in good control. Speech is rational, relevant, but not spontaneous and not productive. Language skills are fair. Thought processes including: Feeling lonely, isolated, but denies any psychotic symptoms and denies any suicidal thoughts and his thoughts are organized but very low tone of speech and not very productive. Thought content: . No psychotic symptoms and no hallucinations. Patient does admit sometimes he feels quite hopeless and wonders why the god making him go through this. Abstract reasoning, and computation: Fair. Description of associations: Organized. Description of abnormal or psychotic thoughts: None. Judgment: Fair. Insight: Good. Orientation to [, oriented. Recent and remote memory: No gross impairment. Attention span and concentration: Fair. Language: . Fund of knowledge: Average. Mood: Feeling hopeless and helpless at times, irritable at times, especially with his neighbors, but denies any suicidal thoughts. His energy is low and his appetite is low and his concentration is poor at times. Affect: Moderately blunted but is appropriate, able to smile a little but overall restricted range of emotion. DIAGNOSIS: 1. . Adjustment disorder with depressed mood PLAN: 1. , I'm not terribly convinced that antidepressant medicine will make a big difference. Patient is skeptical whether antidepressant medicine will work. However, his depression is moderately severe and trial of small dose of SSRI such as Zoloft 25mg or Prozac 10 mg with careful titration is recommended. Patient was offered outpatient follow-up at [facility], but he is declining at this time. 2. Will follow. Vital Signs Vital Signs Date Time Temp Pulse Resp B/P (MAP) Pulse Ox O2 Delivery O2 Flow Rate FiO2 03/07/21 10:25 75 140/67 03/07/21 06:43 17 03/07/21 06:00 98.0 96 Room Air Laboratory Data 24H Labs Laboratory Tests 2 03/06/21 13:11: Bedside Glucose (Misc Panel) 76 03/06/21 16:21: Bedside Glucose (Misc Panel) 105 03/06/21 21:19: Bedside Glucose (Misc Panel) 99 03/07/21 05:33: Immature Granulocyte % (Auto) 1.0, Neutrophils (%) (Auto) 42.2, Lymphocytes (%) (Auto) 21.9L, Monocytes (%) (Auto) 29.9H, Eosinophils (%) (Auto) 4.3H, Basophils (%) (Auto) 0.7, Neutrophils # (Auto) 1.3L, Lymphocytes # (Auto) 0.7L, Monocytes # (Auto) 0.9H, Eosinophils # (Auto) 0.1, Basophils # (Auto) 0.0, Nucleated Red Blood Cells % (auto) 0.0, Erythrocyte Sedimentation Rate 87H, Anion Gap 12, Glomerular Filtration Rate 8.6L, Calcium Level 9.3, C-Reactive Protein, Jose D ntitative 11.80H Home Medications Current Medications Current Medications Medications (Trade) Dose Ordered Sig/Ayden Route PRN Reason Start Time Stop Time Status Last Admin Dose Admin Acetaminophen (Tylenol Tab) 650 mg Q4HP PRN PO PAIN OR FEVER 03/04/21 01:55 03/06/21 21:18 Albuterol Sulfate (Proventil, Ventolin Hfa) 2 puff Q2HP PRN INH SHORTNESS OF BREATH 03/03/21 10:45 Apixaban (Eliquis) 2.5 mg BID PO 03/03/21 12:15 Cancel Apixaban (Eliquis) 2.5 mg BID PO 03/03/21 21:00 03/07/21 10:27 Ascorbic Acid (Vitamin C) 500 mg DAILY PO 03/04/21 09:00 03/07/21 10:25 Bisacodyl (Dulcolax Suppository) 10 mg BIDP PRN [place] CONSTIPATION 03/06/21 16:05 Calcium Carbonate (Tums) 1,000 mg Q4HP PRN PO HEARTBURN 03/05/21 00:15 03/05/21 15:58 Carvedilol (COReg) 12.5 mg BID PO 03/04/21 09:00 03/05/21 19:38 DC 03/05/21 07:51 Ceftaroline Fosamil 600 mg/ Dextrose 50 ml @ 50 mls/hr Q12H IV 03/04/21 09:30 03/04/21 09:34 DC Ceftriaxone Sodium 1 gm/ Dextrose 50 ml @ 100 mls/hr Q24H IV 03/05/21 11:00 03/12/21 10:59 03/06/21 16:08 Ceftriaxone Sodium 2 gm/ Dextrose 50 ml @ 100 mls/hr Q24H IV 03/04/21 11:00 03/04/21 09:27 DC Darbepoetin Jomar (Aranesp (Dialysis Use)) 200 mcg HD IV 03/04/21 20:45 03/05/21 10:08 Dextrose (Dextrose 50%) 25 ml ASDIRECTED PRN IV SEE LABEL COMMENTS 03/03/21 23:15 Diltiazem HCl (Cardizem Cd) 120 mg QHS PO 03/04/21 21:00 03/06/21 21:16 Famotidine (Pepcid) 20 mg BID PO 03/04/21 09:00 03/07/21 10:25 Folic Acid (Folic Acid) 1 mg DAILY PO 03/03/21 12:15 Cancel Folic Acid (Folic Acid) 1 mg DAILY PO 03/04/21 09:00 03/07/21 10:24 Gabapentin (Neurontin) 100 mg MoWeFr@1600 PO 03/06/21 16:00 03/06/21 16:08 Glucagon (Glucagon) 1 mg ASDIRECTED PRN SC SEE LABEL COMMENTS 03/03/21 23:15 Glucose (Glucose) 16 GM ASDIRECTED PRN PO SEE LABEL COMMENTS 03/03/21 23:15 Heparin Sodium (Heparin) Please refer to ... ASDIRECTED XX 03/05/21 06:00 03/06/21 05:59 DC Heparin Sodium (Heparin) Please refer to ... ASDIRECTED XX 03/06/21 06:00 03/07/21 05:59 DC Home Med (Med Rec Complete!) ASDIRECTED XX 03/03/21 12:05 03/03/21 12:03 DC Hydrocortisone (Cortef) 10 mg QHS PO 03/04/21 21:00 03/06/21 21:16 Hydromorphone HCl (Dilaudid) 0.2 mg Q3HP PRN IV MILD PAIN (PS 1-4) 03/05/21 16:00 Hydromorphone HCl (Dilaudid) 0.4 mg Q3HP PRN IV MODERATE PAIN (PS 5-7) 03/05/21 16:00 03/06/21 10:39 Hydromorphone HCl (Dilaudid) 1 mg Q6H PO 03/05/21 12:00 03/07/21 06:13 Hydroxyzine HCl (Atarax) 25 mg Q12HP PRN PO PRURITUS 03/03/21 10:45 03/05/21 14:45 Insulin Human Lispro (HumaLOG INSULIN) SEE PROTOCOL TABLE AC SC 03/04/21 07:30 Insulin Human Lispro (HumaLOG INSULIN) SEE PROTOCOL TABLE QHS SC 03/03/21 21:00 Lidocaine HCl (Lidocaine 1% Sdv) 0.5 ml ASDIRECTED PRN SC SEE LABEL COMMENTS 03/05/21 06:00 03/05/21 10:09 DC Lidocaine HCl (Lidocaine 1% Sdv) 0.5 ml ASDIRECTED PRN SC SEE LABEL COMMENTS 03/06/21 06:00 03/06/21 22:29 DC Linezolid 600 mg/ IV Miscellaneous Supplies 300 ml @ 150 mls/hr Q12H IV 03/04/21 10:00 03/07/21 10:26 Metoclopramide HCl (REGLAN INJection) 10 mg Q6H IV 03/05/21 16:00 03/05/21 16:08 DC Metoprolol Succinate (TopROL XL) 25 mg QAM PO 03/07/21 09:00 03/07/21 10:25 Metoprolol Succinate (TopROL XL) 50 mg QAM PO 03/06/21 09:00 03/07/21 10:14 DC 03/06/21 08:04 Metoprolol Tartrate (Lopressor) 12.5 mg BID PO 03/03/21 10:45 03/03/21 12:18 DC Midodrine (Proamatine) 10 mg 08,12,16 PO 03/04/21 10:00 03/06/21 16:08 Naloxone HCl (Narcan) 0.1 mg Q5MP PRN IV RESP. RATE < 10 03/04/21 10:05 Ondansetron HCl (ZOFRAN INJection) 4 mg Q6H IV 03/05/21 18:00 03/07/21 06:13 Ondansetron HCl (Zofran Odt) 4 mg Q6H SL 03/05/21 00:15 03/05/21 00:23 DC Ondansetron HCl (Zofran Odt) 4 mg Q6HP PRN SL NAUSEA 03/05/21 00:25 03/05/21 16:00 DC 03/05/21 14:45 Oxycodone/ Acetaminophen (Percocet 5mg/ 325mg Tablet) 1 tab Q6H PO 03/04/21 18:00 03/05/21 09:39 DC 03/05/21 06:31 Polyethylene Glycol (Miralax) 1 pkt BID PO 03/06/21 21:00 Pravastatin Sodium (Pravachol) 80 mg DAILY PO 03/04/21 09:00 03/07/21 10:24 Promethazine HCl (PHENERGAN INJection) 12.5 mg Q6H IV 03/05/21 16:30 03/06/21 16:06 DC 03/06/21 04:40 Senna/Docusate Sodium (Senokot S) 2 tab BID PO 03/06/21 21:00 03/07/21 10:24 Sucroferric Oxyhydroxide (Velphoro) 1,500 mg WM PO 03/04/21 12:30 Tramadol HCl (Ultram) 50 mg Q6HP PRN PO MODERATE PAIN (PS 5-7) 03/04/21 02:45 03/04/21 09:59 DC 03/04/21 02:49 Tramadol HCl (Ultram) 50 mg Q8HP PRN PO MODERATE PAIN (PS 5-7) 03/03/21 10:45 03/04/21 01:58 DC 03/03/21 20:46 Scheduled Apixaban (Eliquis) 2.5 Mg Tablet, 2.5 MG PO BID, (Reported) Ascorbic Acid (Vitamin C) 500 Mg Tablet, 500 MG PO DAILY, (Reported) Carvedilol (Carvedilol) 12.5 Mg Tablet, 12.5 MG PO BID, (Reported) Famotidine (Famotidine) 20 Mg Tablet, 20 MG PO BID, (Reported) Folic Acid (Folic Acid) 1 Mg Tablet, 1 MG PO DAILY, (Reported) Gabapentin (Gabapentin) 100 Mg Capsule, 100 MG PO 3XW, (Reported) TAKE AFTER DIALYSIS Hydrocortisone (Hydrocortisone) 10 Mg Tablet, 10 MG PO QHS, (Reported) Lidocaine/Prilocaine (Lidocaine-Prilocaine Cream) 2.5%/2.5% Cream..g., 1 DOSE TOP 3XW, (Reported) APPLY TO ACCESS SITE PRIOR TO DIALYSIS Pravastatin Sodium (Pravastatin Sodium) 80 Mg Tablet, 80 MG PO DAILY, (Reported) Sucroferric Oxyhydroxide (Velphoro) 500 Mg Tab.chew, 1,500 MG PO WM, (Reported) dilTIAZem HCl (Diltiazem 24Hr Cd) 120 Mg Cap.er.24h, 120 MG PO QHS, (Reported) Scheduled PRN Albuterol Sulfate (Ventolin Hfa) 18 Gm Hfa.aer.ad, 2 PUFF INH Q6H PRN for SHORTNESS OF BREATH, (Reported) Hydroxyzine HCl (Hydroxyzine HCl) 25 Mg Tablet, 25 MG PO Q12H PRN for ITCHING, (Reported) Tramadol HCl (Tramadol HCl) 50 Mg Tablet, 50 MG PO TID PRN for PAIN, (Reported) Miscellaneous Medications [Patient Comment] , (Reported) MED LIST OBTAINED FROM PCP OFFICE Allergies Coded Allergies: vancomycin (Verified Adverse Reaction, Mild, ITCHING, 11/25/19) ITA BENAVIDES M.D. March 07, 2021 11:35
[2021-03-07] MEDS: cefTRIAXone SOD 1 GM in D5W MINI-BAG PLUS 50 ML IV SCH (13:16)
--- NOTE | 2021-03-07 13:55 | CR ---
ADVANCED WOUND CARE CONSULTATION VIA TELEMEDICINE DATE: 03/07/2021 CONSULTX REQUESTED BY: Trish Patricia M.D. REASON FOR CONSULTATION: Wound care suggestions. HISTORY OF PRESENT ILLNESS: Wound care telemedicine provides a visual assessment of a wound without the benefit of a physical examination. It can assist with establishing a diagnosis and etiology. This allows for initial treatment plan. As wounds often change, it maybe necessary to modify the original care. Our recommendation is periodic wound reassessment to monitor treatment. Failure to comply may result in non-healing of the wound, possible complications and/or a poor outcome. The recommendations given will serve as treatment options. As I will not be following this patient, this care plan will require the attending physician to give and sign the orders. Upon discharge, outpatient follow-up can be scheduled at our wound care center. Patient identified and verbal consent obtained. This is a 50-year-old noncompliant male on dialysis with known bilateral lower extremity lymphedema, associated with venous stasis disease. Patient was admitted for cellulitis of the left lower extremity, although both legs by history were involved. On admission, his white count was 11.4 and he was afebrile. He has been on two antibiotics without a wound culture; Rocephin and Linezolid. Repeat white count at this time is within normal limits at 3.0 and the patient has remained afebrile. PHYSICAL EXAMINATION: The left lower extremity has decompressed as the patient has been on bed rest for the majority of his hospital course, which has been five days. On the lateral superior aspect, there is a wound measuring 6.0 cm x 7.0 cm with a wound depth of 0.1 cm. This wound base shows a 100% granulation tissue without deep structures. Drainage is minimal, serosanguineous and without odor. Wound edges are attached and the periwound shows dry skin without erythema, maceration or ischemia. On the right posterior calf area, there is a wound measuring 2.5 cm x 2.0 cm and a satellite wound measuring 1.0 cm x 1.0 cm. Both these wound bases show granulation tissue, again with fixed wound margins, minimal serosanguineous drainage and no evidence of ischemic changes involving the periwound. Right lower extremity shows decompression as evidenced by decrease in size and wrinkling of the skin. At this point, antibiotic therapy can be discontinued as the patient is afebrile and has a normal white count. TREATMENT: Aquaphor for dry skin. OptiLocks for any exposed areas which can be secured with a Kerlix and/or Fouzia and bilateral Tubigrip stockings are recommended. When the patient is discharged if he wishes to follow-up at our wound clinic, he can be seen. CAMMY
[2021-03-07 14:00] VITALS: BP 149/80
--- NOTE | 2021-03-07 19:53 | IPNPDOC ---
Date Seen The patient was seen on 03/07/21. Progress Note SUBJECTIVE: Per Dr. Andrade, no vascular inpatient procedures needed inpatient. Has not tried to ambulate or apply wt on legs in several days, encouraging to try again today. Cellulitis resolved at this time. Will see if bleeding reoccurs with ambulation on next PT evaluation. Discussion is directed toward d/c at this time. Decreased lower ext edema. Pain and inflammatory markers improving with current IV abx. OBJECTIVE: PHYSICAL EXAM: VITAL SIGNS: Please see below GENERAL: AAOx 3, NAD, resting in bed HEENT: No JVD or thyromegaly. Moist mucous membranes. LUNGS: Diminished. There is no wheezing or rales. HEART: S1, S2. No murmurs, rubs or gallops. Irregularly irregular. ABDOMEN: Obese, soft, nontender, nondistended. Positive bowel sounds. EXTREMITIES: Chronic lymphedema with some areas of scabbing and open lesions on the left lateral and posterior aspect of the extremity, not bleeding and not draining today. Cellulitis appears resolved or near resolution of the LLE NEURO: No focal deficits LABORATORY DATA: Please see below IMAGING: Vascular US 03/07: 1. Mild reflux and pulsatile flow through the bilateral common femoral veins. 2. No further reflux disease noted. CT LLE 03/03: Significant diffuse soft tissue edema with no definite focal abscess. No change since prior study. ASSESSMENT/PLAN: Left lower extremity cellulitis in the setting of chronic lymphedema, chronic venous insufficiency with recent bleeding due to chronic Eliquis -Afebrile, WBC wnl -No bleeding for several days, improving inflammatory markers and pain -Cellulitis appears to be near completely resolved -Called Dr. Andrade who recommended o/p follow up, no further inpatient treatment/intervention -Venous studies above. -F/u inflammatory markers in AM, ceftriaxone (day 3/7) Bleeding of the left lower extremity in the setting of chronic venous ulcer, c hronic lymphedema and chronic Apixaban -PT to see if bleeding occurs with ambulation again- at baseline patient lives at home without bleeding that occurs -Venous studies done but o/p folllow up is likely what is needed, no inpatient ablation. -General surgery has assessed, f/u their ntoe -If bleeding occurs with ambulation, further discuss again with Dr. Andrade. -REmains on eliquis Chronic lymphedema likely 2/2 to chronic lower ext swelling, fluid overload state -Improved slightly with [id number] -C/w HD, close f/u Unsteadiness 2/2 to pain, deconditioning -F/u PT/OT eval End-stage renal disease on HD -Nephrology consulted Chronic atrial fibrillation -Rate controlled, on eliquis rate controlled on Eliquis. 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 -CBC stable - No acute indication for RBC transfusion. Hypercholesterolemia, chronic -Stable Type-2 diabetes -On Insulin sliding scale, consistent carbohydrate diet and hypoglycemic alexa col. DVT px -Eliquis DISPOSITION: resume PT/OT, goal is home likely with services. VS, I&O, 24H, Fishbone Vital Signs/I&O Vital Signs Date Time Temp Pulse Resp B/P (MAP) Pulse Ox O2 Delivery O2 Flow Rate FiO2 03/07/21 18:53 16 03/07/21 14:00 98.5 69 149/80 (103) 94 Room Air I&O- Last 24 Hours up to 6 AM 03/07/21 06:00 Intake Total 1250 ml Output Total 2000 ml Balance -750 ml Laboratory Data 24H LABS Laboratory Tests 2 03/06/21 21:19: Bedside Glucose (Misc Panel) 99 03/07/21 05:33: Immature Granulocyte % (Auto) 1.0, Neutrophils (%) (Auto) 42.2, Lymphocytes (%) (Auto) 21.9L, Monocytes (%) (Auto) 29.9H, Eosinophils (%) (Auto) 4.3H, Basophils (%) (Auto) 0.7, Neutrophils # (Auto) 1.3L, Lymphocytes # (Auto) 0.7L, Monocytes # (Auto) 0.9H, Eosinophils # (Auto) 0.1, Basophils # (Auto) 0.0, Nucleated Red B lood Cells % (auto) 0.0, Erythrocyte Sedimentation Rate 87H, Anion Gap 12, Glomerular Filtration Rate 8.6L, Calcium Level 9.3, C-Reactive Protein, Quantitative 11.80H 03/07/21 11:47: Bedside Glucose (Misc Panel) 89 03/07/21 16:37: Bedside Glucose (Misc Panel) 75 CBC/BMP Laboratory Tests 03/07/21 05:33 Microbiology Microbiology 03/03/21 Respiratory Virus Panel (PCR) (DEEP) - Final, Complete Human Rhinovirus/Enterovirus 03/03/21 Blood Culture - Preliminary, Resulted No Growth after 72 hours. All specime... 03/03/21 Blood Culture - Preliminary, Resulted No Growth after 72 hours. All specime... Mary Alice Cedillo MD March 07, 2021 19:53
[2021-03-07] MEDS ORDERED: traMADol 50 MG TAB PO PRN (20:05)
[2021-03-07] MEDS ORDERED: MORPHINE 2 MG/ML 1ML VIAL (J2270) IV PRN (20:05)
[2021-03-07] MEDS: HYDROCORTISONE 10 MG TAB PO SCH (21:00)
[2021-03-07] MEDS: LINEZOLID 600MG TABLET (ZYVOX) PO SCH (21:00)
[2021-03-07 22:00] VITALS: BP 144/78
[2021-03-08 06:00] VITALS: BP 143/67
[2021-03-08 06:03] LABS: BASO % 0.6 % (0.0-1.0); EOS # 0.2 10^3/uL (0.0-0.5); EOS % 5.3 % (0.0-3.0); HEMATOCRIT 34.4 % (42.0-52.0); HEMOGLOBIN 10.7 g/dl (13.5-17.5); LYMPH # 0.7 10^3/uL (1.5-5.0); LYMPH % 20.3 % (24.0-44.0); MEAN CORPUSCULAR HEMOGLOBIN 31.7 pg (27.0-33.0); MEAN CORPUSCULAR HGB CONC 31.1 g/dl (32.0-36.5); MEAN CORPUSCULAR VOLUME 101.8 fl (80.0-96.0); MONO # 0.5 10^3/uL (0.0-0.8); MONO % 15.3 % (2.0-8.0); NEUTROPHILS % 57.6 % (36.0-66.0); PLATELET COUNT, AUTOMATED 137 10^3/uL (150-450); RED BLOOD COUNT 3.38 10^6/uL (4.30-6.10); WHITE BLOOD COUNT 3.4 10^3/uL (4.0-10.0)
[2021-03-08] MEDS: ONDANSETRON 4MG/2ML VIAL IV SCH ×3 (06:03→17:49)
[2021-03-08 06:38] LABS: ERYTHROCYTE SEDIMENTATION RATE 82 mm/hr (0-20)
[2021-03-08 06:39] LABS: C REACTIVE PROTEIN QUANTITATIV 7.7 MG/DL (0.00-0.30); CALCIUM LEVEL 9.4 MG/DL (8.5-10.1); CREATININE FOR GFR 9.24 MG/DL (0.70-1.30); GLOMERULAR FILTRATION RATE 6.4 (>56); POTASSIUM SERUM 5.2 MEQ/L (3.5-5.1)
[2021-03-08] MEDS ORDERED: ONDANSETRON 4 MG TAB PO PRN (06:40)
[2021-03-08] MEDS ORDERED: LIDOCAINE 1% SDV 5ML VIAL SC PRN (06:50)
[2021-03-08] MEDS: HumaLOG INSULIN (NovoLOG) PER UNIT SC SCH ×3 (07:30→17:11)
[2021-03-08] MEDS: MIDODRINE 5 MG TAB PO SCH ×3 (07:42→17:49)
[2021-03-08] MEDS: SUCROFERRIC OXYHYDROXIDE 500MG CHEW TAB (VELPHORO) PO SCH (07:45)
[2021-03-08] MEDS: METOPROLOL SUCC *XL* 25MG TAB (TopROL *XL*) PO SCH (08:15)
[2021-03-08] MEDS: DIMETHICONE 2% OINTMENT(VANICREAM) 70GM TUBE TOP SCH (09:00)
--- NOTE | 2021-03-08 12:23 | IPN ---
PROGRESS NOTE DATE: 03/08/2021 SUBJECTIVE: The patient was seen and examined at the bedside today morning during hemodialysis procedure. He is tolerating the hemodialysis procedure well. He reports the pain and swelling in the legs is getting better. His antibiotics were changed to oral antibiotics now. OBJECTIVE: VITAL SIGNS: Temperature 97 degrees Fahrenheit, blood pressure 143/67, pulse 60, respiratory rate 18, saturating 96% on room air. INTAKE AND OUTPUT: Urine output is not recorded. Weight on the bed scale is not available. GENERAL: The patient is awake, alert, and oriented x3. Morbidly obese, laying in the bed, in no apparent distress. HEAD AND NECK: Extraocular muscles intact. Pupils equal, round, reactive to light. Mucous membranes are moist. Neck is supple. There is no JVD. CARDIOVASCULAR: S1, S2. Regular rate. 2+ edema in the bilateral lower extremities. RESPIRATORY: Chest is clear to auscultation bilaterally. ABDOMEN: Soft and obese with positive bowel sounds. MUSCULOSKELETAL: She has chronic lymphedema and chronic venous stasis changes of bilateral lower extremities, left is worse than right. Erythema and tenderness in the left leg is getting better. He has multiple small ulcers on the bilateral lower extremities. 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 Power is 5/5 in all extremities. LABORATORY DATA: CBC showed a WBC of 3.4, hemoglobin 10.7, platelets 137,000. BMP showed sodium 136, potassium 5.2, chloride 100, bicarb 24, BUN 18, creatinine 9.4. C-reactive protein is 7.7. CURRENT INPATIENT MEDICATIONS: The patient's medications were all reviewed by myself. His IV ceftriaxone has been stopped. He has been started on Ceftin 250 mg p.o. q. 24 hourly. He has also been started on oral Zyvox instead of IV Zyvox. No other change in the medications today. However, looking at his medications, the patient refused to take his Eliquis yesterday. He refused to take his diltiazem last night. He is refusing his hydrocortisone last night. He also refused his Zyvox orally today. He is also refusing to take the phosphorus binders. ASSESSMENT AND PLAN: 1. End-stage renal disease. The patient is being dialyzed today. Ultrafiltration goal will be around 3 liters. Volume status is significantly better. 2. Cellulitis of the left leg. His IV antibiotics were stopped; however, he is refusing the oral antibiotics, and I feel like he is noncompliant with his medications as an outpatient as well and his cellulitis will get worse. I recommend starting the patient on intravenous (IV) antibiotics again. 3. Hypertension. The patient is supposed to be on metoprolol and Cardizem. His metoprolol dose was decreased. I am going to decrease his Cardizem as well because most likely he does not take his medications at home. 4. Chronic kidney disease and mineral bone disease. The patient is noncompliant with his phosphorus binders. He is not taking any of them. His phosphorus level was 8.3 two days ago. 5. Atrial fibrillation. The patient did not take his Eliquis today morning. 6. Hyperkalemia. He is being dialyzed with a 2K bath and potassium should get better. 7. Anemia and end-stage renal disease. He has been started on Aranesp by dialysis. Hemoglobin level is stable at this time.
[2021-03-08] MEDS: FOLIC ACID 1 MG TAB PO SCH (13:35)
[2021-03-08] MEDS: FAMOTIDINE 20 MG TAB PO SCH ×2 (13:35→21:11)
[2021-03-08] MEDS: ASCORBIC ACID 500 MG TAB PO SCH (13:35)
[2021-03-08] MEDS: LINEZOLID 600MG TABLET (ZYVOX) PO SCH ×2 (13:35→21:10)
[2021-03-08] MEDS: APIXABAN 2.5 MG TAB (ELIQUIS) PO SCH ×2 (13:35→21:11)
[2021-03-08] MEDS: SENOKOT S TAB PO SCH ×2 (13:35→21:00)
[2021-03-08] MEDS: PRAVASTATIN 20 MG TAB PO SCH (13:35)
[2021-03-08 14:00] VITALS: BP 136/72
[2021-03-08] MEDS ORDERED: CEFUROXIME 500 MG TAB PO SCH (16:00)
[2021-03-08] MEDS: GABAPENTIN 100 MG CAP PO SCH (17:49)
--- NOTE | 2021-03-08 18:02 | IPNPDOC ---
Date Seen The patient was seen on 03/08/21. Progress Note SUBJECTIVE: Ulcers in lower ext no longer bleeding. Transitioned to PO abx to see if tolerates, following inflammatory markers still. Was told patient is not taking PO meds this AM but when I examined him later in afternoon he denied and states he would. Switching back to IV ceftriaxone for now. OBJECTIVE: PHYSICAL EXAM: VITAL SIGNS: Please see below GENERAL: AAOx 3, NAD, resting in bed HEENT: No JVD or thyromegaly. Moist mucous membranes. LUNGS: Diminished. There is no wheezing or rales. HEART: S1, S2. No murmurs, rubs or gallops. Irregularly irregular. ABDOMEN: Obese, soft, nontender, nondistended. Positive bowel sounds. EXTREMITIES: Chronic lymphedema with some areas of scabbing and open lesions on the left lateral and posterior aspect of the extremity, not bleeding and not draining today. Cellulitis appears resolved or near resolution of the LLE NEURO: No focal deficits LABORATORY DATA: Please see below IMAGING: Vascular US 03/07: 1. Mild reflux and pulsatile flow through the bilateral common femoral veins. 2. No further reflux disease noted. CT LLE 03/03: Significant diffuse soft tissue edema with no definite focal abscess. No change since prior study. ASSESSMENT/PLAN: Left lower extremity cellulitis in the setting of chronic lymphedema, chronic venous insufficiency with recent bleeding due to chronic Eliquis -Afebrile, WBC wnl -No bleeding from ulcers, improving inflammatory markers and pain -Cellulitis appears to be near completely resolved -Called Dr. Andrade who recommended o/p follow up, no further inpatient treatment/intervention -Venous studies above. -F/u inflammatory markers in AM, ceftriaxone (day 4/7) Bleeding of the left lower extremity in the setting of chronic venous ulcer, chronic lymphedema and chronic Apixaban- resolved -Venous studies done but o/p folllow up is likely what is needed, no inpatient ablation. -General surgery has assessed, f/u their note -If bleeding occurs with ambulation, further discuss again with Dr. Andrade. -Remains on eliquis Chronic lymphedema likely 2/2 to chronic lower ext swelling, fluid overload state -Improved slightly with [id number] HD sessions -C/w HD, close f/u Unsteadiness 2/2 to pain, deconditioning -PT: would benefit from several more days of service -PT/OT to continue and referral for home services will be given at discharge End-stage renal disease on HD -Nephrology consulted Chronic atrial fibrillation -Rate controlled, on eliquis rate controlled on Eliquis. 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 -CBC stable - No acute indication for RBC transfusion. Hypercholesterolemia, chronic -Stable Type-2 diabetes -On Insulin sliding scale, consistent carbohydrate diet and hypoglycemic protocol. DVT px -Eliquis DISPOSITION: PT to continue along with IV abx, goal is home likely with service s. VS, I&O, 24H, Fishbone Vital Signs/I&O Vital Signs Date Time Temp Pulse Resp B/P (MAP) Pulse Ox O2 Delivery O2 Flow Rate FiO2 03/08/21 08:15 60 143/67 03/08/21 06:00 97.0 18 96 Room Air I&O- Last 24 Hours up to 6 AM 03/08/21 06:00 Intake Total 870 ml Output Total 200 ml Balance 670 ml Laboratory Data 24H LABS Laboratory Tests 2 03/07/21 20:54: Bedside Glucose (Misc Panel) 74 03/08/21 05:30: Immature Granulocyte % (Auto) 0.9, Neutrophils (%) (Auto) 57.6, Lymphocytes (%) (Auto) 20.3L, Monocytes (%) (Auto) 15.3H, Eosinophils (%) (Auto) 5.3H, Basophils (%) (Auto) 0.6, Neutrophils # (Auto) 2.0, Lymphocytes # (Auto) 0.7L, Monocytes # (Auto) 0.5, Eosinophils # (Auto) 0.2, Basophils # (Auto) 0.0, Nucleated Red Blood Cells % (auto) 0.0, Erythrocyte Sedimentation Rate 82H, Anion Gap 12, Glomerular Filtration Rate 6.4L, Calcium Level 9.4, C-Reactive Protein, Quantitative 7.70H 03/08/21 13:25: Bedside Glucose (Misc Panel) 61L 03/08/21 17:04: Bedside Glucose (Misc Panel) 65L 03/08/21 17:46: Bedside Glucose (Misc Panel) 75 CBC/BMP Laboratory Tests 03/08/21 05:30 Microbiology Microbiology 03/03/21 Respiratory Virus Panel (PCR) (DEEP) - Final, Complete Human Rhinovirus/Enterovirus 03/03/21 Blood Culture - Final, Complete NO GROWTH AFTER 5 DAYS 03/03/21 Blood Culture - Final, Complete NO GROWTH AFTER 5 DAYS Mary Alice Cedillo MD March 08, 2021 18:02
[2021-03-08] MEDS: cefTRIAXone SOD 1 GM in D5W MINI-BAG PLUS 50 ML IV SCH (18:43)
[2021-03-08] MEDS: CALCIUM CARBONATE 500 MG CHEW U/D PO PRN (21:15)
[2021-03-08 22:00] VITALS: BP 147/78
[2021-03-09] MEDS: ONDANSETRON 4MG/2ML VIAL IV SCH ×4 (00:21→17:12)
[2021-03-09 06:00] VITALS: BP 152/80
[2021-03-09 06:19] LABS: BASO % 0.4 % (0.0-1.0); EOS # 0.1 10^3/uL (0.0-0.5); HEMATOCRIT 35.7 % (42.0-52.0); HEMOGLOBIN 10.8 g/dl (13.5-17.5); LYMPH # 0.6 10^3/uL (1.5-5.0); LYMPH % 20.1 % (24.0-44.0); MEAN CORPUSCULAR HEMOGLOBIN 30.8 pg (27.0-33.0); MEAN CORPUSCULAR HGB CONC 30.3 g/dl (32.0-36.5); MEAN CORPUSCULAR VOLUME 101.7 fl (80.0-96.0); MONO # 0.7 10^3/uL (0.0-0.8); MONO % 24.2 % (2.0-8.0); NEUTROPHILS # 1.4 10^3/uL (1.5-8.5); NEUTROPHILS % 50.6 % (36.0-66.0); PLATELET COUNT, AUTOMATED 124 10^3/uL (150-450); RED BLOOD COUNT 3.51 10^6/uL (4.30-6.10); WHITE BLOOD COUNT 2.7 10^3/uL (4.0-10.0)
[2021-03-09 06:42] LABS: CALCIUM LEVEL 9.3 MG/DL (8.5-10.1); CREATININE FOR GFR 6.89 MG/DL (0.70-1.30); ERYTHROCYTE SEDIMENTATION RATE 68 mm/hr (0-20); POTASSIUM SERUM 4.6 MEQ/L (3.5-5.1)
[2021-03-09] MEDS: ASCORBIC ACID 500 MG TAB PO SCH (08:33)
[2021-03-09] MEDS: LINEZOLID 600MG TABLET (ZYVOX) PO SCH (08:33)
[2021-03-09] MEDS: FOLIC ACID 1 MG TAB PO SCH (08:33)
[2021-03-09] MEDS: FAMOTIDINE 20 MG TAB PO SCH ×2 (08:33→21:38)
[2021-03-09] MEDS: APIXABAN 2.5 MG TAB (ELIQUIS) PO SCH ×2 (08:33→21:38)
[2021-03-09] MEDS: PRAVASTATIN 20 MG TAB PO SCH (08:33)
[2021-03-09] MEDS: METOPROLOL SUCC *XL* 25MG TAB (TopROL *XL*) PO SCH (08:34)
[2021-03-09] MEDS: DIMETHICONE 2% OINTMENT(VANICREAM) 70GM TUBE TOP SCH (08:35)
[2021-03-09] MEDS: SENOKOT S TAB PO SCH ×2 (08:37→21:00)
[2021-03-09] MEDS: MIDODRINE 5 MG TAB PO SCH ×3 (08:43→17:12)
[2021-03-09 08:57] LABS: PHOSPHORUS LEVEL 8.4 MG/DL (2.5-4.9)
[2021-03-09 14:00] VITALS: BP 140/70
--- NOTE | 2021-03-09 14:55 | IPNPDOC ---
Date Seen The patient was seen on 03/09/21. Progress Note SUBJECTIVE: No acute events overnight. Anticipated d/c 03/10/21 after one additional day of IV abx. Denies chest pain, increased lower ext pain, swelling, fevers. OBJECTIVE: PHYSICAL EXAM: VITAL SIGNS: Please see below GENERAL: AAOx 3, NAD, resting in bed HEENT: No JVD or thyromegaly. Moist mucous membranes. LUNGS: Diminished. There is no wheezing or rales. HEART: S1, S2. No murmurs, rubs or gallops. Irregularly irregular. ABDOMEN: Obese, soft, nontender, nondistended. Positive bowel sounds. EXTREMITIES: Chronic lymphedema with some areas of scabbing and open lesions on the left lateral and posterior aspect of the extremity, not bleeding and not draining today. Cellulitis appears near resolution of the LLE NEURO: No focal deficits LABORATORY DATA: Please see below IMAGING: Vascular US 03/07: 1. Mild reflux and pulsatile flow through the bilateral common femoral veins. 2. No further reflux disease noted. CT LLE 03/03: Significant diffuse soft tissue edema with no definite focal abscess. No change since prior study. ASSESSMENT/PLAN: Left lower extremity cellulitis in the setting of chronic lymphedema, chronic venous insufficiency with recent bleeding due to chronic Eliquis -Afebrile, WBC wnl -was not taking PO 03/08/21 so needed to restart IV abx, inflammatory markers continue to improve but are not wnl. -No bleeding from ulcers -Cellulitis appears to be near completely resolved -Called Dr. Andrade who recommended o/p follow up, no further inpatient treatment/intervention -Venous studies above. -Ceftriaxone (day 02/27), stopped PO zyvox today. Bleeding of the left lower extremity in the setting of chronic venous ulcer, chronic lymphedema and chronic Apixaban- resolved -Venous studies done but o/p folllow up is likely what is needed, no inpatient ablation. -General surgery has assessed, f/u their note -If bleeding reoccurs with ambulation, further discuss again with Dr. Andrade. -On eliquis Chronic lymphedema likely 2/2 to chronic lower ext swelling, fluid overload state -Improved with [id number] HD sessions -C/w HD, close f/u Unsteadiness 2/2 to pain, deconditioning -PT: would benefit from several more days of service -PT/OT to continue and referral for home services will be given at discharge End-stage renal disease on HD -Nephrology consulted Chronic atrial fibrillation -Rate controlled, on eliquis rate controlled on Eliquis. 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 -CBC stable - No acute indication for RBC transfusion. Hypercholesterolemia, chronic -Stable Type-2 diabetes -On Insulin sliding scale, consistent carbohydrate diet and hypoglycemic pro tocol. DVT px -Eliquis DISPOSITION: PT to continue along with IV abx, goal is home likely with services on 03/10/21 . VS, I&O, 24H, Fishbone Vital Signs/I&O Vital Signs Date Time Temp Pulse Resp B/P (MAP) Pulse Ox O2 Delivery O2 Flow Rate FiO2 03/09/21 08:34 76 142/70 03/09/21 06:00 97.4 20 96 03/08/21 14:00 Room Air I&O- Last 24 Hours up to 6 AM 03/09/21 06:00 Intake Total 1800 ml Output Total 3000 ml Balance -1200 ml Laboratory Data 24H LABS Laboratory Tests 2 03/08/21 17:04: Bedside Glucose (Misc Panel) 65L 03/08/21 17:46: Bedside Glucose (Misc Panel) 75 03/08/21 20:42: Bedside Glucose (Misc Panel) 108H 03/09/21 00:19: Bedside Glucose (Misc Panel) 97 03/09/21 05:28: Immature Granulocyte % (Auto) 0.7, Neutrophils (%) (Auto) 50.6, Lymphocytes (%) (Auto) 20.1L, Monocytes (%) (Auto) 24.2H, Eosinophils (%) (Auto) 4.0H, Basophils (%) (Auto) 0.4, Neutrophils # (Auto) 1.4L, Lymphocytes # (Auto) 0.6L, Monocytes # (Auto) 0.7, Eosinophils # (Auto) 0.1, Basophils # (Auto) 0.0, Nucleated Red Blood Cells % (auto) 0.0, Erythrocyte Sedimentation Rate 68H, Anion Gap 9, Glomerular Filtration Rate 9.0L, Calcium Level 9.3, Phosphorus Level 8.4H, C- Reactive Protein, Quantitative 5.00H 03/09/21 11:25: Bedside Glucose (Misc Panel) 96 CBC/BMP Laboratory Tests 03/09/21 05:28 Microbiology Microbiology 03/03/21 Respiratory Virus Panel (PCR) (DEEP) - Final, Complete Human Rhinovirus/Enterovirus 03/03/21 Blood Culture - Final, Complete NO GROWTH AFTER 5 DAYS 03/03/21 Blood Culture - Final, Complete NO GROWTH AFTER 5 DAYS Mary Alice Cedillo MD March 09, 2021 14:55
[2021-03-09] MEDS: cefTRIAXone SOD 1 GM in D5W MINI-BAG PLUS 50 ML IV SCH (17:11)
[2021-03-09] MEDS ORDERED: MIDO5TA PO (19:33)
[2021-03-09] MEDS ORDERED: METO1TAB32 PO (19:33)
[2021-03-09] MEDS ORDERED: CEFU50TA PO (19:36)
[2021-03-09 22:00] VITALS: BP 156/81
--- NOTE | 2021-03-09 23:06 | IPN ---
NEPHROLOGY PROGRESS NOTE DATE: 03/09/2021 SUBJECTIVE: Patient was seen and examined at the bedside today morning. He is afebrile, hemodynamically stable. He was dialyzed yesterday. He tolerated the hemodialysis procedure well. He reports that his lower extremity edema and pain is getting better. OBJECTIVE: VITAL SIGNS: Temperature 97.6 degrees Fahrenheit, blood pressure 140/70, pulse 59, respiratory rate 18, saturating 95% on room air. INTAKE/OUTPUT: Ultrafiltration with hemodialysis was 3 liters yesterday. Weight in the bed scale is 111.4 kg. PHYSICAL EXAMINATION: GENERAL: Patient is awake, alert and oriented x3, lying in bed in no apparent distress. HEAD/NECK: Extraocular muscles intact. Pupils equally round and reactive to light. Mucous membranes are moist. Neck is supple. There is no JVD. CVS: S1, S2, regular rate. 1+ edema of the bilateral lower extremities and he has chronic venous stasis changes of lower extremities. RESPIRATORY: Chest is clear to auscultation bilaterally. ABDOMEN: Soft, obese, positive bowel sounds. MUSCULOSKELETAL: Patient has chronic venous stasis changes of bilateral lower extremities. Chronic ulcers on both legs. Left leg cellulitis is getting better. Tenderness is improving. GLOBAL CEO: No focal deficit. Power is 5/5 in bilateral upper and lower extremities. LABORATORY REVIEW: CBC showed WBC 2.7, hemoglobin 10.8, platelets 124,000. BMP showed sodium 138, potassium 4.6, chloride 103, bicarb 26, BUN 48, creatinine 6.8. Calcium 9.3. Phosphorus 8.4. C-reactive protein is 5. CURRENT INPATIENT MEDICATIONS: Patient's medications were all reviewed by myself. He continues to be on I.V. Ceftriaxone. I see that his Zyvox has been stopped. No other significant change in the medications today. ASSESSMENT AND PLAN: 1. End-stage renal disease: Patient was dialyzed yesterday. His volume status is getting better. Next hemodialysis will be done tomorrow morning. 2. Left lower extremity cellulitis and chronic lymphedema: Patient is getting volume optimization with dialysis. Edema is getting better. C-reactive protein is improving. He is getting I.V. Ceftriaxone. Zyvox p.o. has been stopped by medical team. 3. Chronic atrial fibrillation: His heart rate is controlled with current dose of Metoprolol. He is anticoagulated with Eliquis. 4. Anemia and end-stage renal disease: Hemoglobin level is stable with current dose of Aranesp with dialysis. 5. Hyperphosphatemia: Patient is noncompliant with the phosphorus binders. There is no use increasing the dose.
[2021-03-10 06:00] VITALS: BP 168/80
[2021-03-10] MEDS: ONDANSETRON 4MG/2ML VIAL IV SCH ×4 (06:00→12:57)
[2021-03-10] MEDS: ASCORBIC ACID 500 MG TAB PO SCH (06:26)
[2021-03-10] MEDS: FAMOTIDINE 20 MG TAB PO SCH (06:26)
[2021-03-10] MEDS: FOLIC ACID 1 MG TAB PO SCH (06:26)
[2021-03-10 06:27] VITALS: BP 168/80
[2021-03-10] MEDS: SENOKOT S TAB PO SCH (06:27)
[2021-03-10] MEDS: METOPROLOL SUCC *XL* 25MG TAB (TopROL *XL*) PO SCH (06:27)
[2021-03-10] MEDS: APIXABAN 2.5 MG TAB (ELIQUIS) PO SCH (06:27)
[2021-03-10] MEDS: PRAVASTATIN 20 MG TAB PO SCH (06:28)
[2021-03-10] MEDS ORDERED: LIDOCAINE 1% SDV 5ML VIAL SC PRN (06:40)
[2021-03-10 06:51] LABS: BASO % 0.5 % (0.0-1.0); EOS # 0.2 10^3/uL (0.0-0.5); EOS % 3.9 % (0.0-3.0); HEMATOCRIT 36.5 % (42.0-52.0); HEMOGLOBIN 10.9 g/dl (13.5-17.5); LYMPH # 1.2 10^3/uL (1.5-5.0); LYMPH % 29.9 % (24.0-44.0); MEAN CORPUSCULAR HGB CONC 29.9 g/dl (32.0-36.5); MEAN CORPUSCULAR VOLUME 103.7 fl (80.0-96.0); MONO # 0.5 10^3/uL (0.0-0.8); MONO % 13.2 % (2.0-8.0); NEUTROPHILS # 2.1 10^3/uL (1.5-8.5); NEUTROPHILS % 51.8 % (36.0-66.0); PLATELET COUNT, AUTOMATED 121 10^3/uL (150-450); RED BLOOD COUNT 3.52 10^6/uL (4.30-6.10); WHITE BLOOD COUNT 4.1 10^3/uL (4.0-10.0)
[2021-03-10 07:16] LABS: CALCIUM LEVEL 9.2 MG/DL (8.5-10.1); CREATININE FOR GFR 9.63 MG/DL (0.70-1.30); GLOMERULAR FILTRATION RATE 6.1 (>56); POTASSIUM SERUM 4.9 MEQ/L (3.5-5.1)
[2021-03-10] MEDS: MIDODRINE 5 MG TAB PO SCH ×2 (07:45→12:58)
[2021-03-10] MEDS: DIMETHICONE 2% OINTMENT(VANICREAM) 70GM TUBE TOP SCH (08:08)
[2021-03-10] MEDS ORDERED: PROB250C PO (10:23)
--- NOTE | 2021-03-10 12:48 | IPN ---
PROGRESS NOTE DATE: 03/10/2021 SUBJECTIVE: Patient was seen and examined at the bedside today morning during hemodialysis procedure. He is tolerating the hemodialysis procedure well. He reports his leg pain is better. He continues to be on antibiotics. Patient wants to go home after dialysis today. OBJECTIVE: Vital signs: Temperature is 96.6 degrees Fahrenheit, blood pressure 168/80, pulse is 58, respiratory rate of 18, saturating 98% on room air. Intake and output: There is no urine output recorded. Weight in the bed scale is 112.1 kg. PHYSICAL EXAMINATION: GENERAL: Patient is awake, alert, oriented times three, lying in bed getting hemodialysis done. HEAD AND NECK: Extraocular muscles are intact. Pupils equally round and reactive to light. Mucous membranes are moist. Neck is supple. No jugular venous distention (JVD). CARDIOVASCULAR: S1, S2, regular rate. Edema 1+ of the bilateral lower extremities. RESPIRATORY: Chest is clear to auscultation bilaterally. ABDOMEN: Soft, obese. Positive bowel sounds. MUSCULOSKELETAL: Chronic venous stasis changes of bilateral lower extremities. Lymphedema of the lower extremities is significantly better today as compared with his admission day. Erythema and cellulitis of the leg is also improving. CENTRAL NERVOUS SYSTEM: No focal deficit. Power is 5/5 in all extremities. LABORATORY REVIEW: CBC showed a WBC 4.1, hemoglobin 10.9, platelets are 121. BMP showed sodium 138, potassium 4.9, chloride 103, bicarbonate 23, BUN 73, creatinine is 9.6. CURRENT INPATIENT MEDICATIONS: Patient's medications were all reviewed by myself. He continues to be on intravenous (IV) ceftriaxone. Zyvox was stopped. ASSESSMENT AND PLAN: 1. End-stage renal disease. He is being dialyzed according to his regular scheduled. Ultrafiltration goal will be 3 liters as tolerated by his blood pressure. 2. Chronic lymphedema and left leg cellulitis. Leukocytosis is improving. Edema is getting better. He is status post Zyvox, which was stopped probably because of leukopenia. He continues to be on ceftriaxone. Oral medications on medications are as per medical team. 3. Anemia and end-stage renal disease. Hemoglobin is stable with Aranesp. Rest of the management will be done as outpatient. 4. Chronic atrial fibrillation. He is on metoprolol and Eliquis. 5. Hyperphosphatemia. Patient is noncompliant with phosphorus binders. DISPOSITION: I recommended the patient to stay for a few more days to get his cellulitis treated; however, he is not willing to stay, and he has a history of noncompliance with the medications. I emphasized again to the patient that he will need to continue with his treatments, fluid restrictions, and followup the recommendations. It is okay to discharge the patient from nephrology standpoint.
--- NOTE | 2021-03-10 18:01 | DS.PDOC ---
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 Presents again today with complaints of worsening pain, swelling, redness of the left lower extremity for the past 2-3 days, worse over the past 24 hours without fever but with complains of chills . He has noted increasing and serous drainage without any purulence, but has noted is a "lump" on the left leg which has increased. Patient took tramadol without improvement and presented to the ER for further evaluation. Patient had limitations of act ivities of daily living due to severe pain and increased seepage of white serous material from the left leg despite elevation on pillows at home. In the emergency room patient was found to have worsening erythema, edema of the left lower extremity greater than the right with an indurated and elevated area measuring about 3 cm in diameter on the left lateral side of the leg white count was 11.4. He was afebrile. Sedimentation rate was 54 with CRP at of 8.3. He was given IV ceftriaxone and hospitalist was called to admit the patient for left lower extremity cellulitis in the setting of chronic lymphedema usually managed by advanced male infertility specialist, Dr. Kelvin Macario. HOSPITAL COURSE: Left lower extremity cellulitis in the setting of chronic lymphedema was treated with IV ceftriaxone, zyvox. Inflammatory markers were markedly elevated but started trending down nicely. Lower ext swelling, redness, pain improved with continued treatment. He has history of chronic venous insufficiency with recent bleeding of venous ulcers due to chronic Eliquis . Venous studies were done, please see below. Case was discussed with Dr. Andrade after evaluation by surgery, who suggested inpatient venous ligation. IR did not believe this was needed and suggested o/p follow up for venous ligation. Eliquis was held for period and bleeding stopped. He later resumed ambulation and PT without any bleeding being an issue while on eliquis. To get additional fluid off, HD continued and overtime his lymphedema and cellulitis improved concomitantly. Pain significantly improved with continued tx too. He was evaluated by mariano for concerns of increased depression, please refer to note. His diagnosis was adjustment disorder with depressed mood but meds were never started. By 03/10/21 he had much improved. He was discharged home with services to continue and to complete 10 day abx course with PO ceftin BID, probiotic. He will f/u with PCP, nephrology and have new appt to see Dr. Anrdade after d/c. At time of discharge, he had no acute complaints. PAST MEDICAL HISTORY: End-stage renal disease on maintenance dialysis Saturday, Saturday, Saturday, type 2 diabetes, hypertension, chronic lymphedema, venous insufficiency, anemia due to end-stage renal failure, obesity, chronic gout due to chronic kidney disease, left lower extremity cellulitis PAST SURGICAL HISTORY: Left wrist Arteriovenous fistula formation SOCIAL HISTORY: Denies smoking, alcohol, recreational drug use FAMILY HISTORY: Mother with heart, lung disease, hypertension, diabetes. Father , hypertension, heart disease, diabetes DISCHARGE MEDICATIONS: Please see below. PHYSICAL EXAM: VITAL SIGNS: Please see below GENERAL: AAOx 3, NAD, resting in bed HEENT: No JVD or thyromegaly. Moist mucous membranes. LUNGS: Diminished. There is no wheezing or rales. HEART: S1, S2. No murmurs, rubs or gallops. Irregularly irregular. ABDOMEN: Obese, soft, nontender, nondistended. Positive bowel sounds. EXTREMITIES: Chronic lymphedema with some areas of scabbing and open lesions on the left lateral and posterior aspect of the extremity, not bleeding and not draining. Cellulitis appears near resolution of the LLE NEURO: No focal deficits LABORATORY DATA: Please see below IMAGING: Vascular US 03/07: 1. Mild reflux and pulsatile flow through the bilateral common femoral veins. 2. No further reflux disease noted. CT LLE 03/03: Significant diffuse soft tissue edema with no definite focal abscess. No change since prior study. ASSESSMENT/PLAN: Left lower extremity cellulitis in the setting of chronic lymphedema, chronic venous insufficiency with recent bleeding due to chronic Eliquis -Afebrile, WBC wnl -Inflammatory markers continue to improve -No bleeding from ulcers -Cellulitis appears to be near completely resolved -Called Dr. Andrade who recommended o/p follow up, no further inpatient treatment/intervention -Venous studies above. -Was treated with ceftriaxone, zyvox inpatient. To complete 10 day abx course with PO ceftin BID, probiotic Bleeding of the left lower extremity in the setting of chronic venous ulcer, chronic lymphedema and chronic Apixaban- resolved -Venous studies done but o/p folllow up is likely what is needed, no inpatient ablation. -General surgery has assessed, f/u their note -If bleeding reoccurs with ambulation, further discuss again with Dr. Andrade. Appointment information asked to be given to patient at discharge -On eliquis Chronic lymphedema likely 2/2 to chronic lower ext swelling, fluid overload state -Improved with [id number] HD sessions -C/w HD, close f/u as o/p Unsteadiness 2/2 to pain, deconditioning-improved and using walker -PT/OT: referral for home services will be given at discharge End-stage renal disease on HD -Nephrology follows Chronic atrial fibrillation -Rate controlled, rate controlled on Eliquis. 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 -CBC stable - No acute indication for RBC transfusion this stay Hypercholesterolemia, chronic -Stable Type-2 diabetes DVT px -Eliquis DISPOSITION: D/c home with f/u with PCP, nephrology, o/p with Dr. Andrade if wishes to have venous ligation. TIME SPENT ON DISCHARGE: 35 minutes. Vital Signs/I&Os Vital Signs Date Time Temp Pulse Resp B/P (MAP) Pulse Ox O2 Delivery O2 Flow Rate FiO2 03/10/21 06:27 68 168/80 03/10/21 06:00 96.6 18 96 03/09/21 14:00 Room Air I&O- Last 24 Hours up to 6 AM 03/10/21 06:00 Intake Total 1020 ml Output Total 0 ml Balance 1020 ml Laboratory Data Labs 24H Laboratory Tests 2 03/09/21 21:11: Bedside Glucose (Misc Panel) 101 03/10/21 05:53: Immature Granulocyte % (Auto) 0.7, Neutrophils (%) (Auto) 51.8, Lymphocytes (%) (Auto) 29.9, Monocytes (%) (Auto) 13.2H, Eosinophils (%) (Auto) 3.9H, Basophils (%) (Auto) 0.5, Neutrophils # (Auto) 2.1, Lymphocytes # (Auto) 1.2L, Monocytes # (Auto) 0.5, Eosinophils # (Auto) 0.2, Basophils # (Auto) 0.0, Nucleated Red Blood Cells % (auto) 0.0, Anion Gap 12, Glomerular Filtration Rate 6.1L, Calcium Level 9.2 03/10/21 12:56: Bedside Glucose (Misc Panel) 73 CBC/BMP Laboratory Tests 03/10/21 05:53 FSBS Laboratory Tests Test 03/09/21 21:11 03/10/21 12:56 Range/Units Bedside Glucose (Misc Panel) 101 73 70-105 MG/DL Microbiology Microbiology 03/03/21 Respiratory Virus Panel (PCR) (DEEP) - Final, Complete Human Rhinovirus/Enterovirus 03/03/21 Blood Culture - Final, Complete NO GROWTH AFTER 5 DAYS 03/03/21 Blood Culture - Final, Complete NO GROWTH AFTER 5 DAYS Discharge Medications Scheduled Apixaban (Eliquis) 2.5 Mg Tablet, 2.5 MG PO BID, (Reported) Ascorbic Acid (Vitamin C) 500 Mg Tablet, 500 MG PO DAILY, (Reported) Carvedilol (Carvedilol) 12.5 Mg Tablet, 12.5 MG PO BID, (Reported) Cefuroxime Axetil (Cefuroxime) 500 Mg Tablet, 500 MG PO BID Famotidine (Famotidine) 20 Mg Tablet, 20 MG PO BID, (Reported) Folic Acid (Folic Acid) 1 Mg Tablet, 1 MG PO DAILY, (Reported) Gabapentin (Gabapentin) 100 Mg Capsule, 100 MG PO 3XW, (Reported) TAKE AFTER DIALYSIS Hydrocortisone (Hydrocortisone) 10 Mg Tablet, 10 MG PO QHS, (Reported) Lidocaine/Prilocaine (Lidocaine-Prilocaine Cream) 2.5%/2.5% Cream..g., 1 DOSE TOP 3XW, (Reported) APPLY TO ACCESS SITE PRIOR TO DIALYSIS Metoprolol Succinate (Metoprolol Succinate) 25 Mg Tab.er.24h, 25 MG PO QAM Midodrine HCl (Midodrine HCl) 5 Mg Tablet, 10 MG PO 08,12,16 Pravastatin Sodium (Pravastatin Sodium) 80 Mg Tablet, 80 MG PO DAILY, (Reported) Saccharomyces Boulardii (Probiotic) 250 Mg Capsule, 1 CAP PO BIDWM Sucroferric Oxyhydroxide (Velphoro) 500 Mg Tab.chew, 1,500 MG PO WM, (Reported) dilTIAZem HCl (Diltiazem 24Hr Cd) 120 Mg Cap.er.24h, 120 MG PO QHS, (Reported) Scheduled PRN Albuterol Sulfate (Ventolin Hfa) 18 Gm Hfa.aer.ad, 2 PUFF INH Q6H PRN for SHORTNESS OF BREATH, (Reported) Hydroxyzine HCl (Hydroxyzine HCl) 25 Mg Tablet, 25 MG PO Q12H PRN for ITCHING, (Reported) Tramadol HCl (Tramadol HCl) 50 Mg Tablet, 50 MG PO TID PRN for PAIN, (Reported) Miscellaneous Medications [Patient Comment] , (Reported) MED LIST OBTAINED FROM PCP OFFICE Allergies Coded Allergies: vancomycin (Verified Adverse Reaction, Mild, ITCHING, 11/25/19) Mary Alice Cedillo MD March 10, 2021 18:01
== END 2021-03-10 13:52 | disposition home health service (06) | DRG 299 ==
LOC: EDBD 08:13 → M ED 08:13 → M ED INP 10:24 → ENRESERV 12:46 → M MSPAV 14:38
PROVIDERS: ADMIT General Practice; ATTEND Internal Medicine
DX: I83.221 Varicose veins of left lower extremity with both ulcer of thigh and inflammation (principal); I50.23 Acute on chronic systolic (congestive) heart failure; N18.6 End stage renal disease; L03.116 Cellulitis of left lower limb; I48.20 Chronic atrial fibrillation, unspecified; I13.2 Hypertensive heart and chronic kidney disease with heart failure and with stage 5 chronic kidney disease, or end stage renal disease; D68.32 Hemorrhagic disorder due to extrinsic circulating anticoagulants; L97.128 Non-pressure chronic ulcer of left thigh with other specified severity; L97.218 Non-pressure chronic ulcer of right calf with other specified severity; I83.212 Varicose veins of right lower extremity with both ulcer of calf and inflammation; Z99.2 Dependence on renal dialysis; E11.22 Type 2 diabetes mellitus with diabetic chronic kidney disease; E78.5 Hyperlipidemia, unspecified; D63.1 Anemia in chronic kidney disease; E66.01 Morbid (severe) obesity due to excess calories; M10.30 Gout due to renal impairment, unspecified site; Z68.38 Body mass index [BMI] 38.0-38.9, adult; I89.0 Lymphedema, not elsewhere classified; J44.9 Chronic obstructive pulmonary disease, unspecified; Z79.01 Long term (current) use of anticoagulants; Z79.899 Other long term (current) drug therapy; Z88.1 Allergy status to other antibiotic agents; Z20.822 Contact with and (suspected) exposure to COVID-19; E21.3 Hyperparathyroidism, unspecified; R60.0 Localized edema; E87.5 Hyperkalemia; F43.21 Adjustment disorder with depressed mood; Z72.3 Lack of physical exercise; Z91.14 Patient's other noncompliance with medication regimen